=== PATIENT | female | born 1995 | race Caucasian/White ===

== ENCOUNTER 2016-10-27 10:11 | Emergency (ER) | payer SELFPAY ==
[~2016-10-27 10:11] MED LIST: ARPZ10T PO; BENZ-13 PO; BUSP5TAB59 PO; CEPH-507 PO; CEPH500C PO; CODE-54 PO; Docusate Sodium PO; ESCI20TA2 PO; ESCI5TAB PO; ESCT10T PO; FLUC100T6 PO; HYDR-1231 PO; HYDR-3584 PO; Ibuprofen PO; LISD10CA PO; LISD50CA2 PO; LISD70CA3 PO; MULT1CAP27 PO; NITR100C3 PO; PHEN-639 PO; PNV1TABL9 PO; PRED20TA PO; QTP100T PO; RANI150T15 PO; TRAM50TA2 PO; TRM50T PO; toradol PO
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
== END 2016-10-27 10:43 | disposition left against medical advice (07) ==
LOC: EDUNIT# 10:11 → ER 10:12
DX: R04.2 Hemoptysis (principal); Z53.21 Procedure and treatment not carried out due to patient leaving prior to being seen by health care provider

== ENCOUNTER 2016-11-03 10:52 | Emergency (ER) | payer SELFPAY ==
[~2016-11-03] VITALS: Ht 160 cm; Wt 61.2 kg
--- OUTSIDE RECORDS SUMMARY | 2016-11-03 10:58 | XMS REPORT | Continuity of Care Document ---
Author Author [facility] Organization [facility] Address Unknown Phone Unavailable Care Team Providers Care Vice President Quality Name Role Phone [facility] PCP Insurance Providers Payer Name Policy Number Subscriber Name Relationship [facility] Amerigrp [id number] Han Weir 18 Self / Same As Patient Advance Directives Directive Response Recorded Date/Time Advance Directives No 06/22/16 4:18pm Health Care Power of Trailer Sections Assembler No 06/22/16 4:18pm Organ Donor Yes 06/22/16 [...] Release Form Prescriptions See Medication Section Referrals [facility] - Primary Care Physician Additional Instructions/Education All discharge instructions reviewed with patient and/or family. Voiced understanding. Medications as instructed. Tylenol extra strength [id number] as directed for pain. Ibuprofen 800 mg [...] - 99.5) 06/22/2016 6:03pm Temperature (Calculated Celsius) 36.71826 degrees C (36.4 - 37.5) 06/22/2016 6:03pm [...] 2 inches 06/22/2016 4:18pm Height (Calculated Centimeters) 157.691405 cm 06/22/2016 4:18pm Weight (Pounds) 110 pounds 06/22/2016 4:18pm Weight (Calculated Kilograms) 49.658883 kilograms 06/22/2016 4:18pm Capillary Refill Capillary Refill [...] 5-9 06/22/2016 4:pm 06/22/2016 4:57pm Urine Specific [place] 1.025 * 1.016-1.022 06/22/2016 4:pm 2015 4:57pm [...] Date Attending Provider Departed Emergency Room [facility] 06/22/16 4:18pm 06/22 6:18pm SHAGUFTA WILKS Recent Diagnosis
[2016-11-03] MEDS ORDERED: LORazepam INJ 2 MG/ML (ATIVAN) VIAL IVP ONE (11:30)
--- NOTE | 2016-11-03 11:37 | ED Psychosocial ---
General Chief Complaint: General Problems/Pain Stated Complaint: CHEST PAIN/SOA Nursing Triage Note: c/o chest pain/soa. States she has been upset about her kids being taking away. Hx of anxiety Source: patient Exam Limitations: no limitations History of Present Illness Time seen by provider: 11:26 Initial Comments 20-year-old female patient presents to the emergency department with complaints of chest pain and shortness of air for 1 month. Patient states 2 weeks ago pain became more consistent. Describes pain as a heaviness and achiness. Chest pain is moderate to severe. Patient's children were taken away 1 month ago. Patient does report difficulty with sleep and anxiety. Patient reports " My suicidal thoughts have gotten worse." Patient denies having a plan and states "I don't want to go to hell." Timing/Duration: getting worse ((the last 2 wks)), other (1 month. ) Associated Symptoms: anxiety, impaired concentration, insomnia, suicidal ideation Allergies and Home Medications Allergies Coded Allergies: No Known Drug Allergies (Unverified , 07/21/16) Home Medications Benzonatate 100 Mg Capsule #14 1-2 CAP PO Q8H PRN PRN COUGH Prescribed by: SHAGUFTA WILKS on 07/21/162126 Cephalexin 500 Mg Capsule #21 500 MG PO TID Prescribed by: SHAGUFTA WILKS on 07/21/162126 Fluconazole 100 Mg Tablet #10 100 MG PO DAILY Prescribed by: SHAGUFTA WILKS on 07/21/162126 Hydroxyzine Pamoate 25 Mg Capsule #1 25 MG PO Q6H PRN PRN ANXIETY Prescribed by: SHAGUFTA WILKS on 11/03/16 1304 Lisdexamfetamine Dimesylate 10 Mg Capsule Unknown Dose PO (Reported) Constitutional: No chills, No diaphoresis, No dizziness, No fever, No malaise EENTM: no symptoms reported Respiratory: coughNo orthopnea, No phlegm, short of breath wheezing (( patient hasn't had her inhaler for "quite a while".) Cardiovascular: see HPI chest painNo edema, No palpitations, No syncope Gastrointestinal: No abdominal pain, No constipation, No diarrhea, No nausea, No vomiting Genitourinary: no symptoms reported : No Musculoskeletal: no symptoms reported Skin: no symptoms reported Psychiatric/Neurological: No Symptoms Reported All Other Systems Reviewed Negative Unless Noted: Yes (Negative excepted noted.) Past Apfdtqm-Hifwin-Mqsmha Hx Patient Social History Drug of Choice: Marijuana Type Used: Cigarettes Recent Foreign Travel: No Contact w/Someone Who Travel: No Recent Infectious Disease Expo: No Recent Hopitalizations: No Immunizations Up To Date Tetanus Booster (TDap): Less than 5yrs Date of Influenza Vaccine: Jul 24, 2014 Seasonal Allergies Seasonal Allergies: No Surgeries HX Surgeries: No Respiratory Hx Respiratory Disorders: No Cardiovascular Hx Cardiac Disorders: No Neurological Hx Neurological Disorders: No Reproductive System Hx Reproductive Disorders: No Female Reproductive Disorders: Denies Genitourinary Hx Genitourinary Disorders: No Gastrointestinal Hx Gastrointestinal Disorders: No Musculoskeletal Hx Musculoskeletal Disorders: No Endocrine Hx Endocrine Disorders: Yes (hypoglycemia) HEENT HX ENT Disorders: No Cancer Hx Cancer: No Psychosocial Hx Psychiatric Problems: Yes Behavioral Health Disorders: ADD/ADHD, Anxiety, Depression Integumentary HX Skin/Integumentary Disorder: No Blood Transfusions Hx Blood Disorders: No Adverse Reaction to a Blood Tr: No Reviewed Nursing Assessment Reviewed/Agree w Nursing PMH: Yes Family Medical History Significant Family History: No Pertinent Family Hx Family Medial History: Patient reports no known family medical history. Physical Exam Vital Signs Vital Sign - Last 12Hours 11/03/16 11/03/16 11:17 13:32 Temp 97.5 Pulse 109 Resp 18 B/P 127/90 Pulse Ox 98 O2 Delivery Room Air Capillary Refill : Less Than 3 Seconds General Appearance: WD/WN mild distress HEENT: PERRL/EOMI pharynx normal Neck: supple normal inspection Respiratory: no respiratory distress no accessory muscle use wheezing (rt upper faint expiratory wheeze.) expiration other (anterior chest mildly TTP ( patient reports heaviness gets worse with palpation of the anterior chest.)) Cardiovascular: normal peripheral pulses no edema no murmur tachycardia Gastrointestinal: normal bowel sounds non tender soft no organomegalyNo distended Extremities: non-tender no pedal edema normal capillary refill Neurologic/Psychiatric: surtass analyst II-XII nml as tested no motor/sensory deficits alert oriented x 3 other (depressed, tearful, anxious.) Appearance/Memory: appropriate appearance appropriate insight neat no memory impairment Behavior/Eye Contact: cooperative avoids eye contact increased rate of speech Thoughts/Hallucinations: normal thought pattern no apparent hallucination Skin: normal color warm/dry tattoos/piercings Progress/Results/Core Measures Results/Orders Lab Results Laboratory Tests Test 11/03/16 11:57 11/03/16 12:34 Range/Units Acetaminophen Level < 10 L 10-30 UG/ML Alanine Aminotransferase (ALT/SGPT) 23 0-55 U/L Albumin 4.3 3.2-4.5 G/DL Alkaline Phosphatase 50 40-136 U/L Anion Gap 8 5-14 MMOL/L Aspartate Amino Transf (AST/SGOT) 21 5-34 U/L BUN/Creatinine Ratio 11 Basophils # (Auto) 0.0 0.0-0.1 10^3/uL Basophils (%) (Auto) 0 0-10 % Blood Urea Nitrogen 10 7-18 MG/DL Calcium Level 9.4 8.5-10.1 MG/DL Carbon Dioxide Level 24 21-32 MMOL/L Chloride Level 109 H 98-107 MMOL/L Creatinine 0.87 0.60-1.30 MG/DL Eosinophils # (Auto) 0.1 0.0-0.3 10^3/uL Eosinophils (%) (Auto) 1 0-10 % Estimat Glomerular Filtration Rate > 60 Glucose Level 92 70-105 MG/DL Hematocrit 44 35-52 % Hemoglobin 15.3 11.5-16.0 G/DL Lymphocytes # (Auto) 2.0 1.0-4.0 X 10^3 Lymphocytes (%) (Auto) 21 12-44 % Magnesium Level 2.4 1.8-2.4 MG/DL Mean Corpuscular Hemoglobin 29 25-34 PG Mean Corpuscular Hemoglobin Concent 35 32-36 G/DL Mean Corpuscular Volume 84 80-99 FL Mean Platelet Volume 10.0 7.4-10.4 FL Monocytes # (Auto) 0.7 0.0-1.0 X 10^3 Monocytes (%) (Auto) 8 0-12 % Neutrophils # (Auto) 6.7 1.8-7.8 X 10^3 Neutrophils (%) (Auto) 70 42-75 % Platelet Count 443 H 130-400 10^3/uL Potassium Level 3.9 3.6-5.0 MMOL/L Red Blood Count 5.22 4.35-5.85 10^6/uL Red Cell Distribution Width 13.1 10.0-14.5 % Salicylates Level < 5.0 L 5.0-20.0 MG/DL Serum Alcohol < 10 <10 MG/DL Sodium Level 141 135-145 MMOL/L TSH [place] Testing 1.05 0.35-4.94 UIU/ML Total Bilirubin 0.3 0.1-1.0 MG/DL Total Protein 7.2 6.4-8.2 G/DL Troponin I < 0.30 <0.30 NG/ML White Blood Count 9.6 4.3-11.0 10^3/uL Ur Tricyclic Antidepressants Screen NEGATIVE NEGATIVE Urine Amorphous Sediment MOD SAMEER URATES H /LPF Urine Amphetamines Screen POSITIVE H NEGATIVE Urine Bacteria TRACE /HPF Urine Barbiturates Screen NEGATIVE NEGATIVE Urine Benzodiazepines Screen POSITIVE H NEGATIVE Urine Bilirubin NEGATIVE NEGATIVE Urine Cannabinoids Screen NEGATIVE NEGATIVE Urine Casts NONE /LPF Urine Clarity SLIGHTLY CLOUDY Urine Cocaine Screen NEGATIVE NEGATIVE Urine Color YELLOW Urine Crystals NONE /LPF Urine Culture Indicated NO Urine Glucose (UA) NEGATIVE NEGATIVE Urine Ketones NEGATIVE NEGATIVE Urine Leukocyte Esterase NEGATIVE NEGATIVE Urine Methadone Screen NEGATIVE NEGATIVE Urine Methamphetamines Screen NEGATIVE NEGATIVE Urine Mucus NEGATIVE /LPF Urine Nitrite NEGATIVE NEGATIVE Urine Opiates Screen NEGATIVE NEGATIVE Urine Oxycodone Screen NEGATIVE NEGATIVE Urine Phencyclidine Screen NEGATIVE NEGATIVE Urine Test NEGATIVE NEGATIVE Urine Propoxyphene Screen NEGATIVE NEGATIVE Urine Protein NEGATIVE NEGATIVE Urine RBC NONE /HPF Urine RBC (Auto) NEGATIVE NEGATIVE Urine Specific [place] 1.015 L 1.016-1.022 Urine Squamous Epithelial Cells 5-10 /HPF Urine Urobilinogen NORMAL NORMAL MG/DL Urine WBC NONE /HPF Urine pH 7 5-9 My Orders Orders-SHAGUFTA WILKS PA Ua Culture If Indicated (11/03/16 11:28) Cbc With Automated Diff (11/03/16 11:28) Comprehensive Metabolic Panel (11/03/16 11:28) Alcohol (11/03/16 11:28) Drug Screen Stat (Urine) (11/03/16 11:28) Acetaminophen (11/03/16 11:28) Salicylate (11/03/16 11:28) Ekg Tracing (11/03/16 11:28) Hcg,Qualitative Urine (11/03/16 11:28) Saline Lock/Iv-Start (11/03/16 11:28) Thyroid Analyzer (11/03/16 11:28) Monitor-Rhythm Ecg Trace Only (11/03/16 11:28) Magnesium (11/03/16 11:28) Troponin I (11/03/16 11:28) Lorazepam Injection (Ativan Injection) (11/03/16 11:30) Chest 1 View, Ap/Pa Only (11/03/16 11:42) Lorazepam Tablet (Ativan Tablet) (11/03/16 13:00) Rx-Albuterol Inhaler (Rx-Proair) (11/03/16 13:13) Medications Given in ED Current Medications Medications Dose Ordered Sig/Sachin Route Start Time Stop Time Status Last Admin Dose Admin Lorazepam 0.5 mg ONCE ONCE IVP 11/03/16 11:30 11/03/16 11:31 DC 11/03/16 11:59 0.5 MG Lorazepam 0.5 mg ONCE ONCE PO 11/03/16 13:00 11/03/16 13:01 DC 11/03/16 13:25 0.5 MG Vital Signs/I&O Vital Sign - Last 12Hours 11/03/16 11/03/16 11:17 13:32 Temp 97.5 97.5 Pulse 109 90 Resp 18 16 B/P 127/90 Pulse Ox 98 O2 Delivery Room Air Blood Pressure Mean: 102 ECG Initial ECG Impression Date: Nov 03, 2016 Initial ECG Impression Time: 11:18 Initial ECG Rate: 102 Initial ECG Rhythm: S.Tach Initial ECG Comparisson: Unchanged Comment sinus tachycardia. no STEMI. ECG reviewed by Dr. Cian. Diagnostic Imaging Diagonstic Imaging: Xray Plain Films/CT/US/NM/MRI: chest Comments Findings: Upright portable view of the chest is obtained. The heart size is normal. The pulmonary vessels appear unremarkable. The lungs are clear. There is no pleural effusion or pneumothorax. Impression: Negative chest. Dictated by : Dictated on workstation # [id number] Reviewed: Reviewed by Me (radiology report reiviewed by me.) Departure Communication Progress Notes all laboratory and diagnostic findings discussed with the patient. Patient denies current drug abuse. Patient does have a history of methamphetamine abuse. Patient states she is taking her Vyvanse. Continues to deny having a plan to commit suicide. Denies homicidal ideation. Patient instructed to f/u with [facility] Friday for recheck. Patient to call first thing Friday morning for appointment time. Patient case discussed with Dr. Cain, he agrees with the plan of care. Impression Impression: Primary Impression: Anxiety attack Additional Impressions: Stress at home Asthma Qualified Code: J45.20 - Mild intermittent asthma, uncomplicated Disposition: 01 HOME, SELF-CARE Condition: Improved Departure-Patient Inst. Decision time for Depature: 13:02 Referrals: [facility] [place] ([place]/Family) Primary Care Physician Patient Instructions: Anxiety, Adult (DC), Stress Add. Discharge Instructions: All discharge instructions reviewed with patient and/or family. Voiced understanding. medications as instructed. Drink plenty of fluids. Follow-up with [facility] on Friday for recheck, medication refills, and discussion of lab results. Call first thing Friday morning for appointment time. Do not use drugs. Contact [phone], the police department, or return to the emergency department immediately if worsening symptoms, thoughts of harming yourself, or thoughts of harming others. Return to the emergency department immediately for worsened symptoms or any other concerns. Scripts Hydroxyzine Pamoate (Vistaril)25 Mg [id number] Mg PO Q6H PRN ANXIETY #1 CAP Ref 0 Prov:SHAGUFTA WILKS 11/03/16 Copy Copies To 1: CHICHI VALADEZ GRETCHEN L PA Nov 03, 2016 11:36
[2016-11-03 12:08] LABS: BASOPHILS % (AUTO) 0 % (0-10); EOSINOPHILS # (AUTO) 0.1 10^3/uL (0.0-0.3); EOSINOPHILS % (AUTO) 1 % (0-10); LYMPHOCYTES % (AUTO) 21 % (12-44); MEAN CORPUSCULAR HEMOGLOBIN 29 PG (25-34); MEAN CORPUSCULAR HGB CONC 35 G/DL (32-36); MEAN CORPUSCULAR VOLUME 84 FL (80-99); MONOCYTES # (AUTO) 0.7 X 10^3 (0.0-1.0); MONOCYTES % (AUTO) 8 % (0-12); NEUTROPHILS # (AUTO) 6.7 X 10^3 (1.8-7.8); NEUTROPHILS % (AUTO) 70 % (42-75); PLATELET COUNT 443 10^3/uL (130-400); RED BLOOD COUNT 5.22 10^6/uL (4.35-5.85); RED CELL DISTRIBUTION WIDTH 13.1 % (10.0-14.5); WHITE BLOOD COUNT 9.6 10^3/uL (4.3-11.0)
[2016-11-03 12:29] LABS: ALANINE AMINOTRANSFERASE 23 U/L (0-55); ALBUMIN 4.3 G/DL (3.2-4.5); ANION GAP 8 MMOL/L (5-14); ASPARTATE AMINO TRANSFERASE 21 U/L (5-34); BILIRUBIN,TOTAL 0.3 MG/DL (0.1-1.0); BLOOD UREA NITROGEN 10 MG/DL (7-18); BUN/CREATININE RATIO 11; CALCIUM 9.4 MG/DL (8.5-10.1); CARBON DIOXIDE 24 MMOL/L (21-32); CHLORIDE 109 MMOL/L (98-107); CREATININE SERUM 0.87 MG/DL (0.60-1.30); GFR ESTIMATED > 60; GLUCOSE 92 MG/DL (70-105); MAGNESIUM 2.4 MG/DL (1.8-2.4); POTASSIUM 3.9 MMOL/L (3.6-5.0); SALICYLATE < 5.0 MG/DL (5.0-20.0); SODIUM 141 MMOL/L (135-145); TOTAL PROTEIN 7.2 G/DL (6.4-8.2)
--- NOTE | 2016-11-03 12:34 | Diagnostic Imaging Report ---
Indication: Chest pain. Comparison: 12/05/2015 Findings: Upright portable view of the chest is obtained. The heart size is normal. The pulmonary vessels appear unremarkable. The lungs are clear. There is no pleural effusion or pneumothorax. Impression: Negative chest. Dictated by: Dictated on workstation # [id number]
[2016-11-03 12:35] LABS: ACETAMINOPHEN < 10 UG/ML (10-30); ALCOHOL < 10 MG/DL (<10); TROPONIN I < 0.30 NG/ML (<0.30)
[2016-11-03 12:41] LABS: BILIRUBIN,URINE NEGATIVE (NEGATIVE); KETONES,URINE NEGATIVE (NEGATIVE); LEUKOCYTE ESTERASE ,URINE NEGATIVE (NEGATIVE); NITRITE,URINE NEGATIVE (NEGATIVE); PH,URINE 7 (5-9); PROTEIN,URINE NEGATIVE (NEGATIVE); UROBILINOGEN,URINE NORMAL (NORMAL)
[2016-11-03] MEDS ORDERED: LORazepam 0.5 MG (ATIVAN) TABLET PO ONE (13:00)
[2016-11-03] MEDS ORDERED: HYDR25CA PO (13:04)
[2016-11-03] MEDS ORDERED: RX-ALBUTEROL INHALER (PROAIR) 8 GM IH STA (13:13)
[2016-11-03 13:32] VITALS: BP 122/82
== END 2016-11-03 13:32 | disposition home or self-care (01) ==
LOC: EDUNIT# 10:52 → ER 10:54
DX: F41.9 Anxiety disorder, unspecified (principal); J45.909 Unspecified asthma, uncomplicated; Z63.32 Other absence of family member
CPT/HCPCS: 36415; 71010; 80053; 80306; 80320; 80329; 81000; 83735; 84443; 84484; 84703; 85025; 93005; 93041; 96374

== ENCOUNTER 2017-01-19 17:20 | Emergency (ER) | payer SELFPAY ==
[~2017-01-19 17:20] MED LIST changes: +HYDR25CA PO
[2017-01-20] MEDS ORDERED: AZIT500T5 PO (13:58)
[2017-01-20] MEDS ORDERED: METR500T21 PO (13:58)
[2017-01-20] MEDS ORDERED: NAPR550T PO (13:58)
--- OUTSIDE RECORDS SUMMARY | 2017-02-23 06:10 | XMS REPORT ---
Author Author KELLY CABAN [facility] Address [address] [place] [address] Care Team Providers Care Food Analyst Name Role Phone KELLY CABAN Unavailable PROBLEMS Type Condition ICD9-CM Code VYO77-MS Code Onset Dates Condition Status SNOMED Code Problem Evaluation for contraceptive injection Z30.013 Active 89803235 Problem Anxiety associated with depression F41.8 Active 224417169 Problem Depressive disorder F32.9 Active 22758484 Problem Generalized anxiety disorder F41.1 Active 357075696 ALLERGIES Unknown Allergies SOCIAL HISTORY No smoking Hx information available PLAN OF CARE VITAL SIGNS MEDICATIONS Medication Instructions Dosage Frequency Start Date End Date Duration Status Vyvanse 50 mg Orally Once a day 1 capsule in the morning 24h February, Active RESULTS No Results PROCEDURES No Known procedures IMMUNIZATIONS No Known Immunizations
--- OUTSIDE RECORDS SUMMARY | 2017-02-23 06:11 | XMS REPORT ---
Author Author KELLY CABAN Organization [employer] Address Unknown Phone Unavailable Care Team Providers Care Hollow Tile Partition Erector Name Role Phone KELLY CABAN CP Unavailable Allergies, Adverse Reactions, Alerts Substance Reaction Event Type N.K.D.A. Info Not Available Non Drug Allergy Problems Problem Type Condition Code Onset Dates Condition Status Problem Supervision of with history of pre-term labor V23.41 Active Problem examination or test, positive result V72.42 Active Problem Irregular menstrual cycle 626.4 Active Problem General counseling for initiation of other contraceptive measures V25.02 Active Problem Screening examination for venereal disease V74.5 Active Problem General counseling for prescription of oral contraceptives V25.01 Active Problem Insomnia, unspecified 780.52 Active Problem Dyspareunia 625.0 Active Problem Contact or exposure to other viral diseases V01.79 Active Problem Dysuria 788.1 Active Assessment Attention deficit hyperactivity disorder (ADHD), predominantly inattentive type F90.0 Active Problem Generalized anxiety disorder 300.02 Active Problem Depressive disorder, not elsewhere classified 311 Active Problem Acute upper respiratory infections of unspecified site 465.9 Active Problem Urinary tract infection, site not specified 599.0 Active Problem Need for prophylactic vaccination and inoculation, Influenza V04.81 Active Problem Pain in joint, pelvic region and thigh 719.45 Active Problem Tobacco use disorder complicating , childbirth, or the puerperium, unspecified as to episode of care or not applicable 649.00 Active Medications Medication Code System Code Instructions Start Date End Date Status Dosage Vyvanse [facility] [address]-81 70 MG Orally Once a day Aug 23, 2015 1 capsule in the morning Procedures Procedure Coding System Code Date Office Visit, Est Pt., Level 3 CPT-4 35399 Aug 23, 2015 Vital Signs Date/Time: Aug 23, 2015 Temperature 98.8 F Weight 137.7 lbs Height 63 in BMI 24.39 Index Blood Pressure Diastolic 70 mmHg Blood Pressure Systolic 110 mmHg Cardiac Monitoring Heart Rate 99 bpm Results No Known Results Summary Purpose [employer] Submission
--- OUTSIDE RECORDS SUMMARY | 2017-02-23 06:11 | XMS REPORT ---
Author Author KELLY CABAN [facility] [employer] Address Unknown Phone Unavailable Care Team Providers Care Interdisciplinary Professor Name Role Phone KELLY CABAN CP Unavailable Allergies, Adverse Reactions, Alerts Substance Reaction Event Type N.K.D.A. Info Not Available Non Drug Allergy Problems Problem Type Condition Code Onset Dates Condition Status Assessment Arthritis M19.90 Active Assessment Anxiety F41.9 Active Assessment Attention deficit hyperactivity disorder (ADHD), unspecified ADHD type F90.9 Active Problem Attention deficit hyperactivity disorder (ADHD), unspecified ADHD type F90.9 Active Problem Arthritis M19.90 Active Problem Anxiety F41.9 Active Problem Depressive disorder F32.9 Active Problem Generalized anxiety disorder F41.1 Active Problem Evaluation for contraceptive injection Z30.013 Active Problem Anxiety associated with depression F41.8 Active Medications Medication Code System Code Instructions Start Date End Date Status Dosage Ativan [facility] [place] [address]-47 0.5 MG Orally 2 times a day Jul 15, 2016 1 tablet as needed Naproxen [facility] [place] [address]-37 500 MG Orally every 12 hrs Jul 15, 2016 1 tablet as needed Vyvanse [facility] [place] [address]-82 60 mg Orally Once a day Jul 15, 2016 1 capsule in the morning Amoxicillin [facility] [place] [address]-74 400 MG/5ML Orally 3 times a day Jul 15, 2016 Jul 25, 2016 6 ml Procedures Procedure Coding System Code Date Office Visit, Est Pt., Level 3 CPT-4 13988 Jul 15, 2016 Vital Signs Date/Time: Jul 15, 2016 Cardiac Monitoring Heart Rate 92 bpm Weight 128.6 lbs Height 63 in BMI 22.78 Index Blood Pressure Diastolic 80 mmHg Blood Pressure Systolic 120 mmHg Results No Known Results Summary Purpose [employer] Submission
--- OUTSIDE RECORDS SUMMARY | 2017-02-23 06:14 | XMS REPORT | Continuity of Care Document ---
Author Author [facility] Address Unknown Phone Unavailable Allergies Active Description Code Type Severity Reaction Onset Reported/Identified Relationship to Patient Clinical Status Yes No Known Drug Allergies [id number] Drug Allergy Unknown N/ A 07/21/2016 Medications Problems Date Dx Coded Attending Type Code Diagnosis Diagnosed By 05/19/2008 KELLY CABAN APRN 789.00 ABDOMINAL PAIN UNSPECIFIED SITE 05/19/2008 KELLY CABAN APRN V58.69 MEDICATION HIGH RISK 05/19/2008 789.00 ABDOMINAL PAIN UNSPECIFIED SITE 05/19/2008 V58.69 MEDICATION HIGH RISK 05/19/2008 789.00 ABDOMINAL PAIN UNSPECIFIED SITE 05/19/2008 V58.69 MEDICATION HIGH RISK 05/19/2008 789.00 ABDOMINAL PAIN UNSPECIFIED SITE 05/19/2008 V58.69 MEDICATION HIGH RISK 05/19/2008 789.00 ABDOMINAL PAIN UNSPECIFIED SITE 05/19/2008 V58.69 MEDICATION HIGH RISK 05/19/2008 789.00 ABDOMINAL PAIN UNSPECIFIED SITE 05/19/2008 V58.69 MEDICATION HIGH RISK 05/19/2008 789.00 ABDOMINAL PAIN UNSPECIFIED SITE 05/19/2008 V58.69 MEDICATION HIGH RISK 05/19/2008 789.00 ABDOMINAL PAIN UNSPECIFIED SITE 05/19/2008 V58.69 MEDICATION HIGH RISK 05/19/2008 KELLY CABAN APRN 789.00 ABDOMINAL PAIN UNSPECIFIED SITE 05/19/2008 KELLY CABAN APRN V58.69 MEDICATION HIGH RISK 05/19/2008 SHANNON KLINE APRN 789.00 ABDOMINAL PAIN UNSPECIFIED SITE 05/19/2008 SHANNON KLINE APRN V58.69 MEDICATION HIGH RISK 05/19/2008 CHICHI VALADEZ DO 789.00 ABDOMINAL PAIN UNSPECIFIED SITE 05/19/2008 CHICHI VALADEZ DO V58.69 MEDICATION HIGH RISK 05/19/2008 KELLY CABAN APRN 789.00 ABDOMINAL PAIN UNSPECIFIED SITE 05/19/2008 KELLY CABAN APRN V58.69 MEDICATION HIGH RISK 05/19/2008 KELLY CABAN APRN 789.00 ABDOMINAL PAIN UNSPECIFIED SITE 05/19/2008 KELLY CABAN APRN V58.69 MEDICATION HIGH RISK 05/19/2008 KELLY CABAN APRN 789.00 ABDOMINAL PAIN UNSPECIFIED SITE 05/19/2008 KELLY CABAN APRN V58.69 MEDICATION HIGH RISK 05/19/2008 VALADEZ DO, CHICHI K 789.00 ABDOMINAL PAIN UNSPECIFIED SITE 05/19/2008 VALADEZ DO, CHICHI K V58.69 MEDICATION HIGH RISK 05/19/2008 VALADEZ DO, CHICHI K 789.00 ABDOMINAL PAIN UNSPECIFIED SITE 05/19/2008 VALADEZ DO, CHIHCI K V58.69 MEDICATION HIGH RISK 05/19/2008 SHANNON KLINE APRN A 789.00 ABDOMINAL PAIN UNSPECIFIED SITE 05/19/2008 SHANNON KLINE APRN A V58.69 MEDICATION HIGH RISK 05/19/2008 BEENA YANG, CHARLES Esteevs 789.00 ABDOMINAL PAIN UNSPECIFIED SITE 05/19/2008 BEENA YANG, CHARLES Esteves V58.69 MEDICATION HIGH RISK 05/19/2008 BEENA YANG, CHARLES Esteves 789.00 ABDOMINAL PAIN UNSPECIFIED SITE 05/19/2008 BEENA YANG, CHARLES Esteves V58.69 MEDICATION HIGH RISK 05/19/2008 SHANNON KLINE APRN A 789.00 ABDOMINAL PAIN UNSPECIFIED SITE 05/19/2008 SHANNON KLINE APRN A V58.69 MEDICATION HIGH RISK 06/02/2008 KELLY CABAN APRN 315.9 LEARNING/DELAY IN DEVELOPMENT 06/02/2008 KELLY CABAN APRN 780.52 INSOMNIA UNSPECIFIED 06/02/2008 315.9 LEARNING/DELAY IN DEVELOPMENT 06/02/2008 780.52 INSOMNIA UNSPECIFIED 06/02/2008 315.9 LEARNING/DELAY IN DEVELOPMENT 06/02/2008 780.52 INSOMNIA UNSPECIFIED 06/02/2008 315.9 LEARNING/DELAY IN DEVELOPMENT 06/02/2008 780.52 INSOMNIA UNSPECIFIED 06/02/2008 315.9 LEARNING/DELAY IN DEVELOPMENT 06/02/2008 780.52 INSOMNIA UNSPECIFIED 06/02/2008 315.9 LEARNING/DELAY IN DEVELOPMENT 06/02/2008 780.52 INSOMNIA UNSPECIFIED 06/02/2008 315.9 LEARNING/DELAY IN DEVELOPMENT 06/02/2008 780.52 INSOMNIA UNSPECIFIED 06/02/2008 315.9 LEARNING/DELAY IN DEVELOPMENT 06/02/2008 780.52 INSOMNIA UNSPECIFIED 06/02/2008 KELLY CABAN APRN T 315.9 LEARNING/DELAY IN DEVELOPMENT 06/02/2008 KELLY CABAN APRN T 780.52 INSOMNIA UNSPECIFIED 06/02/2008 SHANNON KLINE APRN A 315.9 LEARNING/DELAY IN DEVELOPMENT 06/02/2008 SHANNON KLINE APRN A 780.52 INSOMNIA UNSPECIFIED 06/02/2008 VALADEZ DO, CHICHI K 315.9 LEARNING/DELAY IN DEVELOPMENT 06/02/2008 VALADEZ DO, CHICHI K 780.52 INSOMNIA UNSPECIFIED 06/02/2008 KELLY CABAN APRN T 315.9 LEARNING/DELAY IN DEVELOPMENT 06/02/2008 KELLY CABAN APRN T 780.52 INSOMNIA UNSPECIFIED 06/02/2008 KELLY CABAN APRN T 315.9 LEARNING/DELAY IN DEVELOPMENT 06/02/2008 KELLY CABAN APRN 780.52 INSOMNIA UNSPECIFIED 06/02/2008 KELLY CABAN APRN T 315.9 LEARNING/DELAY IN DEVELOPMENT 06/02/2008 KELLY CABAN APRN T 780.52 INSOMNIA UNSPECIFIED 06/02/2008 VALADEZ DO, CHICHI K 315.9 LEARNING/DELAY IN DEVELOPMENT 06/02/2008 VALADEZ DO, CHICHI K 780.52 INSOMNIA UNSPECIFIED 06/02/2008 VALADEZ DO, CHICHI K 315.9 LEARNING/DELAY IN DEVELOPMENT 06/02/2008 VALADEZ DO, CHICHI K 780.52 INSOMNIA UNSPECIFIED 06/02/2008 SHANNON KLINE APRN A 315.9 LEARNING/DELAY IN DEVELOPMENT 06/02/2008 SHANNON KLINE APRN A 780.52 INSOMNIA UNSPECIFIED 06/02/2008 BEENA YANG, CHARLES Esteves 315.9 LEARNING/DELAY IN DEVELOPMENT 06/02/2008 BEENA PHD, CHARLES Esteves 780.52 INSOMNIA UNSPECIFIED 06/02/2008 BEENA YANG, CHARLES Esteves 315.9 LEARNING/DELAY IN DEVELOPMENT 06/02/2008 BEENA YANG, CHARLES Esteves 780.52 INSOMNIA UNSPECIFIED 06/02/2008 SHANNON KLINE APRN A 315.9 LEARNING/DELAY IN DEVELOPMENT 06/02/2008 SHANNON KLINE APRN A 780.52 INSOMNIA UNSPECIFIED 07/14/2008 KELLY CABAN APRN 079.99 VIRAL SYNDROME 07/14/2008 079.99 VIRAL SYNDROME 07/14/2008 079.99 VIRAL SYNDROME 07/14/2008 079.99 VIRAL SYNDROME 07/14/2008 079.99 VIRAL SYNDROME 07/14/2008 079.99 VIRAL SYNDROME 07/14/2008 079.99 VIRAL SYNDROME 07/14/2008 079.99 VIRAL SYNDROME 07/14/2008 KELLY CABAN APRN 079.99 VIRAL SYNDROME 07/14/2008 SHANNON KLINE APRN A 079.99 VIRAL SYNDROME 07/14/2008 VALADEZ DO CHICHI K 079.99 VIRAL SYNDROME 07/14/2008 KELLY CABAN APRN 079.99 VIRAL SYNDROME 07/14/2008 KELLY CABAN APRN 079.99 VIRAL SYNDROME 07/14/2008 KELLY CABAN APRN 079.99 VIRAL SYNDROME 07/14/2008 VALADEZ DO CHICHI K 079.99 VIRAL SYNDROME 07/14/2008 VALADEZ DO CHICHI K 079.99 VIRAL SYNDROME 07/14/2008 SHANNON KLINE APRN A 079.99 VIRAL SYNDROME 07/14/2008 BEENA PHD, CHARLES Esteves 079.99 VIRAL SYNDROME 07/14/2008 BEENA PHD, CHARLES Esteves 079.99 VIRAL SYNDROME 07/14/2008 SHANNON KLINE APRN A 079.99 VIRAL SYNDROME 08/02/2008 KELLY CABAN APRN 302.72 ANHEDONIA 08/02/2008 302.72 ANHEDONIA 08/02/2008 302.72 ANHEDONIA 08/02/2008 302.72 ANHEDONIA 08/02/2008 302.72 ANHEDONIA 08/02/2008 302.72 ANHEDONIA 08/02/2008 302.72 ANHEDONIA 08/02/2008 302.72 ANHEDONIA 08/02/2008 KELLY CABAN APRN 302.72 ANHEDONIA 08/02/2008 SHANNON KLINE APRN A 302.72 ANHEDONIA 08/02/2008 VALADEZ TIFFANIE YUNGA K 302.72 ANHEDONIA 08/02/2008 KELLY CABAN APRN 302.72 ANHEDONIA 08/02/2008 KELLY CABAN APRN 302.72 ANHEDONIA 08/02/2008 KELLY CABAN APRN 302.72 ANHEDONIA 08/02/2008 VALADEZ DO CHICHI K 302.72 ANHEDONIA 08/02/2008 VALADEZ DO, CHICHI K 302.72 ANHEDONIA 08/02/2008 SHANNON KLINE APRN A 302.72 ANHEDONIA 08/02/2008 CHARLES HARGROVE PHD 302.72 ANHEDONIA 08/02/2008 CHARLES HARGROVE PHD 302.72 ANHEDONIA 08/02/2008 SHANNON KLINE APRN A 302.72 ANHEDONIA 08/05/2008 KELLY CABAN APRN 296.32 MAJOR DEPRESSIVE AFFECTIVE DISORDER RECURRENT EPISODE MODERATE DEGREE 08/05/2008 296.32 MAJOR DEPRESSIVE AFFECTIVE DISORDER RECURRENT EPISODE MODERATE DEGREE 08/05/2008 296.32 MAJOR DEPRESSIVE AFFECTIVE DISORDER RECURRENT EPISODE MODERATE DEGREE 08/05/2008 296.32 MAJOR DEPRESSIVE AFFECTIVE DISORDER RECURRENT EPISODE MODERATE DEGREE 08/05/2008 296.32 MAJOR DEPRESSIVE AFFECTIVE DISORDER RECURRENT EPISODE MODERATE DEGREE 08/05/2008 296.32 MAJOR DEPRESSIVE AFFECTIVE DISORDER RECURRENT EPISODE MODERATE DEGREE 08/05/2008 296.32 MAJOR DEPRESSIVE AFFECTIVE DISORDER RECURRENT EPISODE MODERATE DEGREE 08/05/2008 296.32 MAJOR DEPRESSIVE AFFECTIVE DISORDER RECURRENT EPISODE MODERATE DEGREE 08/05/2008 KELLY CABAN APRN 296.32 MAJOR DEPRESSIVE AFFECTIVE DISORDER RECURRENT EPISODE MODERATE DEGREE 08/05/2008 SHANNON KLINE APRN A 296.32 MAJOR DEPRESSIVE AFFECTIVE DISORDER RECURRENT EPISODE MODERATE DEGREE 08/05/2008 ALLYSON DO CHICHI K 296.32 MAJOR DEPRESSIVE AFFECTIVE DISORDER RECURRENT EPISODE MODERATE DEGREE 08/05/2008 KELLY CABAN APRN 296.32 MAJOR DEPRESSIVE AFFECTIVE DISORDER RECURRENT EPISODE MODERATE DEGREE 08/05/2008 KELLY CABAN APRN 296.32 MAJOR DEPRESSIVE AFFECTIVE DISORDER RECURRENT EPISODE MODERATE DEGREE 08/05/2008 KELLY CABAN APRN 296.32 MAJOR DEPRESSIVE AFFECTIVE DISORDER RECURRENT EPISODE MODERATE DEGREE 08/05/2008 VALADEZ DO CHICHI K 296.32 MAJOR DEPRESSIVE AFFECTIVE DISORDER RECURRENT EPISODE MODERATE DEGREE 08/05/2008 VALADEZ DO, CHICHI K 296.32 MAJOR DEPRESSIVE AFFECTIVE DISORDER RECURRENT EPISODE MODERATE DEGREE 08/05/2008 SHANNON KLINE APRN A 296.32 MAJOR DEPRESSIVE AFFECTIVE DISORDER RECURRENT EPISODE MODERATE DEGREE 08/05/2008 CHARLES HARGROVE PHD 296.32 MAJOR DEPRESSIVE AFFECTIVE DISORDER RECURRENT EPISODE MODERATE DEGREE 08/05/2008 CHARLES HARGROVE PHD 296.32 MAJOR DEPRESSIVE AFFECTIVE DISORDER RECURRENT EPISODE MODERATE DEGREE 08/05/2008 SHANNON KLINE APRN A 296.32 MAJOR DEPRESSIVE AFFECTIVE DISORDER RECURRENT EPISODE MODERATE DEGREE 11/01/2008 KELLY CABAN APRN 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 11/01/2008 KELLY CABAN APRN 314.01 ATTENTION-DEFICIT HYPERACTIVITY DISORDER 11/01/2008 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 11/01/2008 314.01 ATTENTION-DEFICIT HYPERACTIVITY DISORDER 11/01/2008 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 11/01/2008 314.01 ATTENTION-DEFICIT HYPERACTIVITY DISORDER 11/01/2008 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 11/01/2008 314.01 ATTENTION-DEFICIT HYPERACTIVITY DISORDER 11/01/2008 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 11/01/2008 314.01 ATTENTION-DEFICIT HYPERACTIVITY DISORDER 11/01/2008 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 11/01/2008 314.01 ATTENTION-DEFICIT HYPERACTIVITY DISORDER 11/01/2008 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 11/01/2008 314.01 ATTENTION-DEFICIT HYPERACTIVITY DISORDER 11/01/2008 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 11/01/2008 314.01 ATTENTION-DEFICIT HYPERACTIVITY DISORDER 11/01/2008 KELLY CABAN APRN 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 11/01/2008 KELLY CABAN APRN 314.01 ATTENTION-DEFICIT HYPERACTIVITY DISORDER 11/01/2008 RAISASHANNON Obando APRN A 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 11/01/2008 RAISASHANNON Obando APRN A 314.01 ATTENTION-DEFICIT HYPERACTIVITY DISORDER 11/01/2008 ALLYSON DO CHICHI K 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 11/01/2008 VALADEZ DO CHICHI K 314.01 ATTENTION-DEFICIT HYPERACTIVITY DISORDER 11/01/2008 KELLY CABAN APRN 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 11/01/2008 KELLY CABAN APRN 314.01 ATTENTION-DEFICIT HYPERACTIVITY DISORDER 11/01/2008 KELLY CABAN APRN 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 11/01/2008 KELLY CABAN APRN 314.01 ATTENTION-DEFICIT HYPERACTIVITY DISORDER 11/01/2008 KELLY CABAN APRN 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 11/01/2008 KELLY CABAN APRN 314.01 ATTENTION-DEFICIT HYPERACTIVITY DISORDER 11/01/2008 VALADEZ DO, CHICHI K 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 11/01/2008 VALADEZ DO, CHICHI K 314.01 ATTENTION-DEFICIT HYPERACTIVITY DISORDER 11/01/2008 VALADEZ DO, CHICHI K 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 11/01/2008 VALADEZ DO, CHICHI K 314.01 ATTENTION-DEFICIT HYPERACTIVITY DISORDER 11/01/2008 RAISA CAO SHANNON A 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 11/01/2008 RAISANITA Obando APRNIDI A 314.01 ATTENTION-DEFICIT HYPERACTIVITY DISORDER 11/01/2008 CHARLES HARGROVE PHD 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 11/01/2008 CHARLES HARGROVE PHD 314.01 ATTENTION-DEFICIT HYPERACTIVITY DISORDER 11/01/2008 CHARLES HARGROVE PHD 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 11/01/2008 CHARLES HARGROVE PHD 314.01 ATTENTION-DEFICIT HYPERACTIVITY DISORDER 11/01/2008 SHANNON KLINE APRN A 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 11/01/2008 SHANNON KLINE APRN A 314.01 ATTENTION-DEFICIT HYPERACTIVITY DISORDER 11/23/2008 KELLY CABAN APRN 884.0 OPEN WOUND OF THE UPPER EXTREMITY 11/23/2008 884.0 OPEN WOUND OF THE UPPER EXTREMITY 11/23/2008 884.0 OPEN WOUND OF THE UPPER EXTREMITY 11/23/2008 884.0 OPEN WOUND OF THE UPPER EXTREMITY 11/23/2008 884.0 OPEN WOUND OF THE UPPER EXTREMITY 11/23/2008 884.0 OPEN WOUND OF THE UPPER EXTREMITY 11/23/2008 884.0 OPEN WOUND OF THE UPPER EXTREMITY 11/23/2008 884.0 OPEN WOUND OF THE UPPER EXTREMITY 11/23/2008 KELLY CABAN APRN 884.0 OPEN WOUND OF THE UPPER EXTREMITY 11/23/2008 SHANNON KLINE APRN A 884.0 OPEN WOUND OF THE UPPER EXTREMITY 11/23/2008 TIFFANIE VALADEZ DOA K 884.0 OPEN WOUND OF THE UPPER EXTREMITY 11/23/2008 KELLY CABAN APRN 884.0 OPEN WOUND OF THE UPPER EXTREMITY 11/23/2008 KELLY CABAN APRN 884.0 OPEN WOUND OF THE UPPER EXTREMITY 11/23/2008 KELLY CABAN APRN 884.0 OPEN WOUND OF THE UPPER EXTREMITY 11/23/2008 VALADEZ DO, CHICHI K 884.0 OPEN WOUND OF THE UPPER EXTREMITY 11/23/2008 VALADEZ DO, CHICHI K 884.0 OPEN WOUND OF THE UPPER EXTREMITY 11/23/2008 SHANNON KLINE APRN A 884.0 OPEN WOUND OF THE UPPER EXTREMITY 11/23/2008 CHARLES HARGROVE PHD 884.0 OPEN WOUND OF THE UPPER EXTREMITY 11/23/2008 CHARLES HARGROVE PHD 884.0 OPEN WOUND OF THE UPPER EXTREMITY 11/23/2008 SHANNON KLINE APRN A 884.0 OPEN WOUND OF THE UPPER EXTREMITY 02/20/2009 KELLY CABAN APRN 462 sore throat 02/20/2009 462 sore throat 02/20/2009 462 sore throat 02/20/2009 462 sore throat 02/20/2009 462 sore throat 02/20/2009 462 sore throat 02/20/2009 462 sore throat 02/20/2009 462 SORE THROAT 02/20/2009 KELLY CABAN APRN 462 SORE THROAT 02/20/2009 SHANNON KLINE APRN A 462 SORE THROAT 02/20/2009 VALADEZ DO, CHICHI K 462 SORE THROAT 02/20/2009 KELLY CABAN APRN 462 SORE THROAT 02/20/2009 KELLY CABAN APRN 462 SORE THROAT 02/20/2009 KELLY CABAN APRN 462 SORE THROAT 02/20/2009 VALADEZ DO, CHICHI K 462 SORE THROAT 02/20/2009 VALADEZ DO, CHICHI K 462 SORE THROAT 02/20/2009 SHANNON KLINE APRN A 462 SORE THROAT 02/20/2009 BEENA YANG, CHARLES Esteves 462 SORE THROAT 02/20/2009 BEENA YANG, CHARLES Esteves 462 SORE THROAT 02/20/2009 SHANNON KLINE APRN A 462 SORE THROAT 06/05/2009 KELLY CABAN APRN 787.01 nausea with vomiting 06/05/2009 KELLY CABAN APRN 787.91 diarrhea 06/05/2009 787.01 nausea with vomiting 06/05/2009 787.91 diarrhea 06/05/2009 787.01 nausea with vomiting 06/05/2009 787.91 diarrhea 06/05/2009 787.01 nausea with vomiting 06/05/2009 787.91 diarrhea 06/05/2009 787.01 nausea with vomiting 06/05/2009 787.91 diarrhea 06/05/2009 787.01 nausea with vomiting 06/05/2009 787.91 diarrhea 06/05/2009 787.01 nausea with vomiting 06/05/2009 787.91 diarrhea 06/05/2009 787.01 NAUSEA WITH VOMITING 06/05/2009 787.91 DIARRHEA 06/05/2009 KELLY CABAN APRN 787.01 NAUSEA WITH VOMITING 06/05/2009 KELLY CABAN APRN 787.91 DIARRHEA 06/05/2009 RAISANITA Obando APRNIDI A 787.01 NAUSEA WITH VOMITING 06/05/2009 RAISATopher CAO SHANNON A 787.91 DIARRHEA 06/05/2009 VALADEZ DO, CHICHI K 787.01 NAUSEA WITH VOMITING 06/05/2009 VALADEZ DO, CHICHI K 787.91 DIARRHEA 06/05/2009 KELLY CABAN APRN T 787.01 NAUSEA WITH VOMITING 06/05/2009 KELLY CABAN APRN T 787.91 DIARRHEA 06/05/2009 KELLY CABAN APRN T 787.01 NAUSEA WITH VOMITING 06/05/2009 KELLY CABAN APRN T 787.91 DIARRHEA 06/05/2009 KELLY CABAN APRN T 787.01 NAUSEA WITH VOMITING 06/05/2009 KELLY CABAN APRN T 787.91 DIARRHEA 06/05/2009 VALADEZ DO, CHICHI K 787.01 NAUSEA WITH VOMITING 06/05/2009 VALADEZ DO, CHICHI K 787.91 DIARRHEA 06/05/2009 VALADEZ DO, CHICHI K 787.01 NAUSEA WITH VOMITING 06/05/2009 VALADEZ DO, CHICHI K 787.91 DIARRHEA 06/05/2009 RAISANITA Obando APRNIDI A 787.01 NAUSEA WITH VOMITING 06/05/2009 NITA KLINE APRNIDI A 787.91 DIARRHEA 06/05/2009 BEENA YANG, CHARLES Esteves 787.01 NAUSEA WITH VOMITING 06/05/2009 BEENA YANG, CHARLES Esteves 787.91 DIARRHEA 06/05/2009 BEENA YANG, CHARLES Esteves 787.01 NAUSEA WITH VOMITING 06/05/2009 BEENA YANG, CHARLES Esteves 787.91 DIARRHEA 06/05/2009 RAISANITA KAUR APRNIDI A 787.01 NAUSEA WITH VOMITING 06/05/2009 RAISANITA KAUR APRNIDI A 787.91 DIARRHEA 07/05/2009 KELLY CABAN APRN T 785.6 swollen glands in the neck 07/05/2009 785.6 swollen glands in the neck 07/05/2009 785.6 swollen glands in the neck 07/05/2009 785.6 swollen glands in the neck 07/05/2009 785.6 swollen glands in the neck 07/05/2009 785.6 swollen glands in the neck 07/05/2009 785.6 swollen glands in the neck 07/05/2009 785.6 SWOLLEN GLANDS IN THE NECK 07/05/2009 KELLY CABAN APRN 785.6 SWOLLEN GLANDS IN THE NECK 07/05/2009 SHANNON KLINE APRN A 785.6 SWOLLEN GLANDS IN THE NECK 07/05/2009 VALADEZ DO, CHICHI K 785.6 SWOLLEN GLANDS IN THE NECK 07/05/2009 KELLY CABAN APRN 785.6 SWOLLEN GLANDS IN THE NECK 07/05/2009 KELLY CABAN APRN 785.6 SWOLLEN GLANDS IN THE NECK 07/05/2009 KELLY CABAN APRN 785.6 SWOLLEN GLANDS IN THE NECK 07/05/2009 VALADEZ DO, CHICHI K 785.6 SWOLLEN GLANDS IN THE NECK 07/05/2009 VALADEZ DO, CHICHI K 785.6 SWOLLEN GLANDS IN THE NECK 07/05/2009 SHANNON KLINE APRN A 785.6 SWOLLEN GLANDS IN THE NECK 07/05/2009 BEENA YANG, CHARLES Esteves 785.6 SWOLLEN GLANDS IN THE NECK 07/05/2009 BEENA YANG, CHARLES Esteves 785.6 SWOLLEN GLANDS IN THE NECK 07/05/2009 SHANNON KLINE APRN A 785.6 SWOLLEN GLANDS IN THE NECK 06/25/2010 Ot 789.09 06/26/2010 KELLY CABAN APRN 625.3 DYSMENORRHEA 06/26/2010 KELLY CABAN APRN 787.02 NAUSEA ALONE 06/26/2010 KELLY CABAN APRN V25.41 SURVEILLANCE OF CONTRACEPTIVE PILL 06/26/2010 KELLY CABAN APRN V65.45 COUNSELING ON OTHER SEXUALLY TRANSMITTED DISEASES 06/26/2010 KELLY CABAN APRN V69.2 HIGH-RISK SEXUAL BEHAVIOR 06/26/2010 625.3 DYSMENORRHEA 06/26/2010 787.02 NAUSEA ALONE 06/26/2010 V25.41 SURVEILLANCE OF CONTRACEPTIVE PILL 06/26/2010 V65.45 COUNSELING ON OTHER SEXUALLY TRANSMITTED DISEASES 06/26/2010 V69.2 HIGH-RISK SEXUAL BEHAVIOR 06/26/2010 625.3 DYSMENORRHEA 06/26/2010 787.02 NAUSEA ALONE 06/26/2010 V25.41 SURVEILLANCE OF CONTRACEPTIVE PILL 06/26/2010 V65.45 COUNSELING ON OTHER SEXUALLY TRANSMITTED DISEASES 06/26/2010 V69.2 HIGH-RISK SEXUAL BEHAVIOR 06/26/2010 625.3 DYSMENORRHEA 06/26/2010 787.02 NAUSEA ALONE 06/26/2010 V25.41 SURVEILLANCE OF CONTRACEPTIVE PILL 06/26/2010 V65.45 COUNSELING ON OTHER SEXUALLY TRANSMITTED DISEASES 06/26/2010 V69.2 HIGH-RISK SEXUAL BEHAVIOR 06/26/2010 625.3 DYSMENORRHEA 06/26/2010 787.02 NAUSEA ALONE 06/26/2010 V25.41 SURVEILLANCE OF CONTRACEPTIVE PILL 06/26/2010 V65.45 COUNSELING ON OTHER SEXUALLY TRANSMITTED DISEASES 06/26/2010 V69.2 HIGH-RISK SEXUAL BEHAVIOR 06/26/2010 625.3 DYSMENORRHEA 06/26/2010 787.02 NAUSEA ALONE 06/26/2010 V25.41 SURVEILLANCE OF CONTRACEPTIVE PILL 06/26/2010 V65.45 COUNSELING ON OTHER SEXUALLY TRANSMITTED DISEASES 06/26/2010 V69.2 HIGH-RISK SEXUAL BEHAVIOR 06/26/2010 625.3 DYSMENORRHEA 06/26/2010 787.02 NAUSEA ALONE 06/26/2010 V25.41 SURVEILLANCE OF CONTRACEPTIVE PILL 06/26/2010 V65.45 COUNSELING ON OTHER SEXUALLY TRANSMITTED DISEASES 06/26/2010 V69.2 HIGH-RISK SEXUAL BEHAVIOR 06/26/2010 625.3 DYSMENORRHEA 06/26/2010 787.02 NAUSEA ALONE 06/26/2010 V25.41 SURVEILLANCE OF CONTRACEPTIVE PILL 06/26/2010 V65.45 COUNSELING ON OTHER SEXUALLY TRANSMITTED DISEASES 06/26/2010 V69.2 HIGH-RISK SEXUAL BEHAVIOR 06/26/2010 KELLY CABAN APRN 625.3 DYSMENORRHEA 06/26/2010 KELLY CABAN APRN 787.02 NAUSEA ALONE 06/26/2010 KELLY CABAN APRN V25.41 SURVEILLANCE OF CONTRACEPTIVE PILL 06/26/2010 KELLY CABAN APRN V65.45 COUNSELING ON OTHER SEXUALLY TRANSMITTED DISEASES 06/26/2010 KELLY CABAN APRN V69.2 HIGH-RISK SEXUAL BEHAVIOR 06/26/2010 SHANNON KLINE APRN 625.3 DYSMENORRHEA 06/26/2010 SHANNON KLINE APRN 787.02 NAUSEA ALONE 06/26/2010 SHANNON KLINE APRN V25.41 SURVEILLANCE OF CONTRACEPTIVE PILL 06/26/2010 SHANNON KLINE APRN V65.45 COUNSELING ON OTHER SEXUALLY TRANSMITTED DISEASES 06/26/2010 RAISA HERNANDEZSHANNON Obando A V69.2 HIGH-RISK SEXUAL BEHAVIOR 06/26/2010 VALADEZ DO, CHICHI K 625.3 DYSMENORRHEA 06/26/2010 VALADEZ DO, CHICHI K 787.02 NAUSEA ALONE 06/26/2010 VALADEZ DO, CHICHI K V25.41 SURVEILLANCE OF CONTRACEPTIVE PILL 06/26/2010 VALADEZ DO, CHICHI K V65.45 COUNSELING ON OTHER SEXUALLY TRANSMITTED DISEASES 06/26/2010 VALADEZ DO CHICHI K V69.2 HIGH-RISK SEXUAL BEHAVIOR 06/26/2010 KELLY CABAN APRN 625.3 DYSMENORRHEA 06/26/2010 KELLY CABAN APRN 787.02 NAUSEA ALONE 06/26/2010 KELLY CABAN APRN V25.41 SURVEILLANCE OF CONTRACEPTIVE PILL 06/26/2010 KELLY CABAN APRN V65.45 COUNSELING ON OTHER SEXUALLY TRANSMITTED DISEASES 06/26/2010 KELLY CABAN APRN V69.2 HIGH-RISK SEXUAL BEHAVIOR 06/26/2010 KELLY CABAN APRN 625.3 DYSMENORRHEA 06/26/2010 KELLY CABAN APRN 787.02 NAUSEA ALONE 06/26/2010 KELLY CABAN APRN V25.41 SURVEILLANCE OF CONTRACEPTIVE PILL 06/26/2010 KELLY CABAN APRN V65.45 COUNSELING ON OTHER SEXUALLY TRANSMITTED DISEASES 06/26/2010 KELLY CABAN APRN V69.2 HIGH-RISK SEXUAL BEHAVIOR 06/26/2010 KELLY CABAN APRN 625.3 DYSMENORRHEA 06/26/2010 KELLY CABAN APRN 787.02 NAUSEA ALONE 06/26/2010 KELLY CABAN APRN V25.41 SURVEILLANCE OF CONTRACEPTIVE PILL 06/26/2010 KELLY CABAN APRN V65.45 COUNSELING ON OTHER SEXUALLY TRANSMITTED DISEASES 06/26/2010 KELLY CABAN APRN V69.2 HIGH-RISK SEXUAL BEHAVIOR 06/26/2010 VALADEZ DOTIFFANIEA Allen 625.3 DYSMENORRHEA 06/26/2010 VALADEZ DO CHICHI K 787.02 NAUSEA ALONE 06/26/2010 VALADEZ DO CHICHI K V25.41 SURVEILLANCE OF CONTRACEPTIVE PILL 06/26/2010 VALADEZ DO CHICHI K V65.45 COUNSELING ON OTHER SEXUALLY TRANSMITTED DISEASES 06/26/2010 VALADEZ DO CHICHI K V69.2 HIGH-RISK SEXUAL BEHAVIOR 06/26/2010 VALADEZ DOCHICHI 625.3 DYSMENORRHEA 06/26/2010 ALLYSON YUNGCHICHI K 787.02 NAUSEA ALONE 06/26/2010 ALLYSON YUNGCHICHI K V25.41 SURVEILLANCE OF CONTRACEPTIVE PILL 06/26/2010 ALLYSON YUNG CHICHI K V65.45 COUNSELING ON OTHER SEXUALLY TRANSMITTED DISEASES 06/26/2010 ALLYSON YUNG CHICHI K V69.2 HIGH-RISK SEXUAL BEHAVIOR 06/26/2010 RAISA SHANNON CAO A 625.3 DYSMENORRHEA 06/26/2010 RAISA NITA CAOIDI A 787.02 NAUSEA ALONE 06/26/2010 RAISA NITA CAOIDI A V25.41 SURVEILLANCE OF CONTRACEPTIVE PILL 06/26/2010 RAISASHANNON Obando APRN A V65.45 COUNSELING ON OTHER SEXUALLY TRANSMITTED DISEASES 06/26/2010 SHANNON KLINE APRN A V69.2 HIGH-RISK SEXUAL BEHAVIOR 06/26/2010 CHARLES HARGROVE PHD 625.3 DYSMENORRHEA 06/26/2010 CHARLES HARGROVE PHD 787.02 NAUSEA ALONE 06/26/2010 CHARLES HARGROVE PHD V25.41 SURVEILLANCE OF CONTRACEPTIVE PILL 06/26/2010 CHARLES HARGROVE PHD V65.45 COUNSELING ON OTHER SEXUALLY TRANSMITTED DISEASES 06/26/2010 CHARLES HARGROVE PHD V69.2 HIGH-RISK SEXUAL BEHAVIOR 06/26/2010 CHARLES HARGROVE PHD 625.3 DYSMENORRHEA 06/26/2010 CHARLES HARGROVE PHD 787.02 NAUSEA ALONE 06/26/2010 CHARLES HARGROVE PHD V25.41 SURVEILLANCE OF CONTRACEPTIVE PILL 06/26/2010 CHARLES HARGROVE PHD V65.45 COUNSELING ON OTHER SEXUALLY TRANSMITTED DISEASES 06/26/2010 CHARLES HARGROVE PHD V69.2 HIGH-RISK SEXUAL BEHAVIOR 06/26/2010 RAISASHANNON Obando APRN A 625.3 DYSMENORRHEA 06/26/2010 RAISANITA Obando APRNIDI A 787.02 NAUSEA ALONE 06/26/2010 SHANNON KLINE APRN A V25.41 SURVEILLANCE OF CONTRACEPTIVE PILL 06/26/2010 RAISANITA Obando APRNIDI A V65.45 COUNSELING ON OTHER SEXUALLY TRANSMITTED DISEASES 06/26/2010 RAISANITA Obando APRNIDI A V69.2 HIGH-RISK SEXUAL BEHAVIOR 06/27/2010 KELLY CABAN APRN 564.00 CONSTIPATION 06/27/2010 KELLY CABAN APRN 784.0 HEADACHE 06/27/2010 564.00 CONSTIPATION 06/27/2010 784.0 HEADACHE 06/27/2010 564.00 CONSTIPATION 06/27/2010 784.0 HEADACHE 06/27/2010 564.00 CONSTIPATION 06/27/2010 784.0 HEADACHE 06/27/2010 564.00 CONSTIPATION 06/27/2010 784.0 HEADACHE 06/27/2010 564.00 CONSTIPATION 06/27/2010 784.0 HEADACHE 06/27/2010 564.00 CONSTIPATION 06/27/2010 784.0 HEADACHE 06/27/2010 564.00 CONSTIPATION 06/27/2010 784.0 HEADACHE 06/27/2010 KELLY CABAN APRN 564.00 CONSTIPATION 06/27/2010 KELLY CABAN APRN 784.0 HEADACHE 06/27/2010 RAISATopher CAO SHANNON A 564.00 CONSTIPATION 06/27/2010 RAISATopher CAO SHANNON A 784.0 HEADACHE 06/27/2010 VALADEZ DO, CHICHI K 564.00 CONSTIPATION 06/27/2010 VALADEZ DO, CHICHI K 784.0 HEADACHE 06/27/2010 KELLY CABAN APRN 564.00 CONSTIPATION 06/27/2010 KELLY CABAN APRN 784.0 HEADACHE 06/27/2010 KELLY CABAN APRN 564.00 CONSTIPATION 06/27/2010 KELLY CABAN APRN 784.0 HEADACHE 06/27/2010 KELLY CABAN APRN 564.00 CONSTIPATION 06/27/2010 KELLY CABAN APRN 784.0 HEADACHE 06/27/2010 VALADEZ DO, CHICHI K 564.00 CONSTIPATION 06/27/2010 VALADEZ DO, CHICHI K 784.0 HEADACHE 06/27/2010 VALADEZ DO, CHICHI K 564.00 CONSTIPATION 06/27/2010 VALADEZ DO, CHICHI K 784.0 HEADACHE 06/27/2010 RAISA CAO SHANNON A 564.00 CONSTIPATION 06/27/2010 RAISA CAO SHANNON A 784.0 HEADACHE 06/27/2010 BEENA PHD, CHARLES Esteves 564.00 CONSTIPATION 06/27/2010 CHARLES HARGROVE PHD 784.0 HEADACHE 06/27/2010 CHARLES HARGROVE PHD 564.00 CONSTIPATION 06/27/2010 CHARLES HARGROVE PHD 784.0 HEADACHE 06/27/2010 SHANNON KLINE APRN A 564.00 CONSTIPATION 06/27/2010 SHANNON KLINE APRN A 784.0 HEADACHE 07/26/2010 KELLY CABAN APRN 296.00 BIPOLAR I DISORDER SINGLE MANIC EPISODE UNSPECIFIED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 DHARMESH BLANKENSHIP MD Ot Z53.21 PROC/TRTMT NOT CRD OUT D/T PT [facility]F SEE 09/22/2016 SHANNON KLINE APRN Ot V23.41 PREG W HISTORY OF PRE-TERM LABOR 09/22/2016 SHANNON KLINE PLEATING MACHINE OPERATOR Ot V28.89 OTHER SPECIFIED SCREENING 09/22/2016 FIDEL ALBRECHT MD Ot V23.41 PREG W HISTORY OF PRE-TERM LABOR 09/22/2016 FIDEL ALBRECHT MD Ot V28.81 ENCOUNTER FOR ANATOMIC SURVEY 09/24/2016 DHARMESH BLANKENSHIP MD Ot R21 RASH AND OTHER NONSPECIFIC SKIN ERUPTION 09/24/2016 DHARMESH BLANKENSHIP MD Ot Z53.21 PROC/TRTMT NOT CRD OUT D/T PT LV BEF SEE 09/24/2016 SHANNON KLINE APRN Ot V23.41 PREG W HISTORY OF PRE-TERM LABOR 09/24/2016 SHANNON KLINE PLEATING MACHINE OPERATOR Ot V28.89 OTHER SPECIFIED SCREENING 09/24/2016 FIDEL ALBRECHT MD Ot V23.41 PREG W HISTORY OF PRE-TERM LABOR 09/24/2016 FIDEL ALBRECHT MD Ot V28.81 ENCOUNTER FOR ANATOMIC SURVEY 10/27/2016 SHANNON KLINE APRN Ot V23.41 PREG W HISTORY OF PRE-TERM LABOR 10/27/2016 SHANNON KLINE PLEATING MACHINE OPERATOR Ot V28.89 OTHER SPECIFIED SCREENING 10/27/2016 FIDEL ALBRECHT MD Ot V23.41 PREG W HISTORY OF PRE-TERM LABOR 10/27/2016 FIDEL ALBRECHT MD Ot V28.81 ENCOUNTER FOR ANATOMIC SURVEY 10/27/2016 DHARMESH BLANKENSHIP MD Ot R04.2 HEMOPTYSIS 10/27/2016 DHARMESH BLANKENSHIP MD Ot Z53.21 PROC/TRTMT NOT CRD OUT D/T PT LV BEF SEE 10/27/2016 SHANNON KLINE PLEATING MACHINE OPERATOR Ot V23.41 PREG W HISTORY OF PRE-TERM LABOR 10/27/2016 SHANNON KLINE PLEATING MACHINE OPERATOR Ot V28.89 OTHER SPECIFIED SCREENING 10/27/2016 FIDEL ALBRECHT MD Ot V23.41 PREG W HISTORY OF PRE-TERM LABOR 10/27/2016 FIDEL ALBRECHT MD Ot V28.81 ENCOUNTER FOR ANATOMIC SURVEY 10/29/2016 DHARMESH BLANKENSHIP MD Ot R04.2 HEMOPTYSIS 10/29/2016 DHARMESH BLANKENSHIP MD, Ot Z53.21 PROC/TRTMT NOT CRD OUT D/T PT LV BEF SEE 11/03/2016 SHAGUFTA SOLORIO Ot F41.9 ANXIETY DISORDER, UNSPECIFIED 11/03/2016 SHAGUFTA SOLORIO Ot J45.909 UNSPECIFIED ASTHMA, UNCOMPLICATED 11/03/2016 SHAGUFTA SOLORIO Ot R07.9 CHEST PAIN, UNSPECIFIED 11/03/2016 SHAGUFTA SOLORIO Ot Z63.32 OTHER ABSENCE OF FAMILY MEMBER 11/05/2016 SHAGUFTA SOLORIO Ot F41.9 ANXIETY DISORDER, UNSPECIFIED 11/05/2016 SHAGUFTA SOLORIO Ot J45.909 UNSPECIFIED ASTHMA, UNCOMPLICATED 11/05/2016 SHAGUFTA SOLORIO Ot R07.9 CHEST PAIN, UNSPECIFIED 11/05/2016 SHAGUFTA SOLORIO Ot Z63.32 OTHER ABSENCE OF FAMILY MEMBER 01/19/2017 BEVERLY MUELLER MD Ot R22.2 LOCALIZED SWELLING, MASS AND LUMP, TRUNK 01/19/2017 BEVERLY MUELLER MD Ot Z53.21 PROC/TRTMT NOT CRD OUT D/T PT LV BEF SEE 01/19/2017 SHANNON KLINE APRN Ot V23.41 PREG W HISTORY OF PRE-TERM LABOR 01/19/2017 SHANNON KLINE APRN Ot V28.89 OTHER SPECIFIED SCREENING 01/19/2017 FIDEL ALBRECHT MD Ot V23.41 PREG W HISTORY OF PRE-TERM LABOR 01/19/2017 FIDEL ALBRECHT MD Ot V28.81 ENCOUNTER FOR ANATOMIC SURVEY 01/21/2017 BEVERLY MUELLER MD Ot R22.2 LOCALIZED SWELLING, MASS AND LUMP, TRUNK 01/21/2017 BEVERLY MUELLER MD Ot Z53.21 PROC/TRTMT NOT CRD OUT D/T PT LV BEF SEE 01/21/2017 SHAGUFTA SOLORIO Ot N76.0 ACUTE VAGINITIS 01/21/2017 SHAGUFTA SOLORIO Ot N89.8 OTHER SPECIFIED NONINFLAMMATORY DISORDER 01/21/2017 SHAGUFTA SOLORIO Ot S30.23XA CONTUSION OF VAGINA AND VULVA, INITIAL E 01/21/2017 SHAGUFTA SOLORIO Ot W18.30XA FALL ON SAME LEVEL, UNSPECIFIED, INITIAL 01/21/2017 SHAGUFTA SOLORIO Ot Y92.[address] IN SINGLE-FAMILY (PRIVATE) [place] 01/21/2017 SHAGUFTA SOLORIO Ot Y99.8 OTHER EXTERNAL CAUSE STATUS 01/26/2017 SHAGUFTA SOLORIO Ot N76.0 ACUTE VAGINITIS 01/26/2017 SHAGUFTA SOLORIO Ot N89.8 OTHER SPECIFIED NONINFLAMMATORY DISORDER 01/26/2017 SHAGUFTA SOLORIO Ot S30.23XA CONTUSION OF VAGINA AND VULVA, INITIAL E 01/26/2017 SHAGUFTA SOLORIO Ot W18.30XA FALL ON SAME LEVEL, UNSPECIFIED, INITIAL 01/26/2017 SHAGUFTA SOLORIO Ot Y92.[address] IN SINGLE-FAMILY (PRIVATE) [place] 01/26/2017 SHAGUFTA SOLORIO Ot Y99.8 OTHER EXTERNAL CAUSE STATUS Procedures Code [place] [address] URINE TEST (IN-HOUSE) 10/26/2012 J1055 DEPO-PROVERA INJ 150 MG 10/26/2012 72767 THERAPUTIC INJ SQ/IM 10/26/2012 54995 ROUTINE VENIPUNCTURE 04/05/2013 13236 HEPATITIS PROFILE 04/06/2013 64815 HIV ANTIBODIES (RML) 04/06/2013 13995 SYPHILIS TEST 91911 URINE TEST (IN-HOUSE) 04/12/2013 66940 URINE TEST (IN-HOUSE) 07/29/2013 70330 ROUTINE VENIPUNCTURE 11/30/2013 32579 TSH 11/30/2013 85649 CBC 11/30/2013 6289271 GFR CALC (RESULT ONLY) 11/30/2013 93063 CMP 11/30/2013 16355 UA W/ CULTURE IF INDICATED 03/22/2014 75.69 REPAIR OB LACERATION NEC 07/28/2014 88552 US OB - EARLY <14 WEEKS 12/28/2014 69850 UA LONG DIP 12/28 09933 JOINT INJECTION- LARGE JOINT (SPECIFY MEDCIN DESCRIPTION) 01/05/2015 64528 PSYCH DIAGNOSTIC EVALUATION 01/05/2015 61969 ROUTINE VENIPUNCTURE 01/30/2015 13907 UA OB DIP 2014 54410 CBC 01/30/2015 04841 TRICHOMONAS (IN-HOUSE) 01/30/2015 27472 TSH 01/30/2015 1942947 ANTIBODY SCREEN (RESULT ONLY) 01/30/2015 96189 BLOOD TYPE/Rh FACTOR 01/30/2015 15913 RUBELLA ANTIBODY, IGG 01/31/2015 34296 CULTURE URINE 79779 CULTURE UROGENITAL 02/02/2015 71730 SYPHILLIS-[facility] 02/06/2015 84929 HIV ([facility]) 02/06/2015 33400 ANTIBODY SCREEN (order) 02/06/2015 21298 HEP B SURFACE ANTIGEN (STATE) 02/06/2015 09349 GC/CHLAM PROBE (STATE) 02/06/2015 Results Test Result Range Complete blood count (CBC) with automated white blood cell (WBC) differential - 06/22/16 16:20 Blood leukocytes automated count (number/volume) 9.0 10*3/ uL 4.3-11.0 Blood erythrocytes automated count (number/volume) 4.71 10*6 /uL 4.35-5.85 Venous blood hemoglobin measurement (mass/volume) 13.7 g/dL 11.5-16.0 Blood hematocrit (volume fraction) 40 % 35-52 Automated erythrocyte mean corpuscular volume 85 [foz_us] 80-99 Automated erythrocyte mean corpuscular hemoglobin (mass per erythrocyte) 29 pg 25-34 Automated erythrocyte mean corpuscular hemoglobin concentration measurement ( mass/volume) 34 g/dL 32-36 Automated erythrocyte distribution width ratio 13.3 % 10.0-14.5 Automated blood platelet count (count/volume) 319 10*3/uL 130-400 Automated blood platelet mean volume measurement 10.5 [foz_ us] 7.4-10.4 Automated blood neutrophils/100 leukocytes 68 % 42-75 Automated blood lymphocytes/100 leukocytes 21 % 12-44 Blood monocytes/100 leukocytes 10 % 0-12 Automated blood eosinophils/100 leukocytes 0 % 0-10 Automated blood basophils/100 leukocytes 0 % 0-10 Blood neutrophils automated count (number/volume) 6.1 10*3 1.8-7.8 Blood lymphocytes automated count (number/volume) 1.9 10*3 1.0-4.0 Blood monocytes automated count (number/volume) 0.9 10*3 0.0-1.0 Automated eosinophil count 0.0 10*3/uL 0.0-0.3 Automated blood basophil count (count/volume) 0.0 10*3/uL 0.0-0.1 Complete urinalysis with reflex to culture - 06/22/16 16:20 Urine color determination YELLOW NRG Urine clarity determination CLEAR NRG Urine pH measurement by test strip 5 5- 9 Specific gravity of urine by test strip 1.025 1.016-1.022 Urine protein assay by test strip, semi-quantitative 2+ NEGATIVE Urine glucose detection by automated test strip NEGATIVE NEGATIVE Erythrocytes detection in urine sediment by light microscopy 1+ NEGATIVE Urine ketones detection by automated test strip NEGATIVE NEGATIVE Urine nitrite detection by test strip NEGATIVE NEGATIVE Urine total bilirubin detection by test strip NEGATIVE NEGATIVE Urine urobilinogen measurement by automated test strip (mass/volume) NORMAL NORMAL Urine leukocyte esterase detection by dipstick NEGATIVE NEGATIVE Automated urine sediment erythrocyte count by microscopy (number/high power field) [HPF] NRG Automated urine sediment leukocyte count by microscopy (number/high power field ) [HPF] NRG Bacteria detection in urine sediment by light microscopy FEW NRG Squamous epithelial cells detection in urine sediment by light microscopy 5-10 NRG Crystals detection in urine sediment by light microscopy NONE NRG Casts detection in urine sediment by light microscopy NONE NRG Mucus detection in urine sediment by light microscopy MODERATE NRG Complete urinalysis with reflex to culture YES NR Comprehensive metabolic panel - 06/22/16 16:20 Serum or plasma sodium measurement (moles/volume) 142 mmol/ L 135-145 Serum or plasma potassium measurement (moles/volume) 3.6 mmol/L 3.6-5.0 Serum or plasma chloride measurement (moles/volume) 109 mmol /L 98-107 Carbon dioxide 21 mmol/L 21-32 Serum or plasma anion gap determination (moles/volume) 12 mmol/L 5-14 Serum or plasma urea nitrogen measurement (mass/volume) 17 mg/dL 7-18 Serum or plasma creatinine measurement (mass/volume) 0.75 mg /dL 0.60-1.30 Serum or plasma urea nitrogen/creatinine mass ratio 23 NRG Serum or plasma creatinine measurement with calculation of estimated glomerular filtration rate > NRG Serum or plasma glucose measurement (mass/volume) 83 mg/dL 70-105 Serum or plasma calcium measurement (mass/volume) 9.4 mg/dL 8.5-10.1 Serum or plasma total bilirubin measurement (mass/volume) 0.5 mg/dL 0.1-1.0 Serum or plasma alkaline phosphatase measurement (enzymatic activity/volume) 43 U/L 40-136 Serum or plasma aspartate aminotransferase measurement (enzymatic activity/ volume) 21 U/L 5-34 Serum or plasma alanine aminotransferase measurement (enzymatic activity/volume ) 21 U/L 0-55 Serum or plasma protein measurement (mass/volume) 7.3 g/dL 6.4-8.2 Serum or plasma albumin measurement (mass/volume) 4.6 g/dL 3.2-4.5 Lipase - 06/22/16 16:20 Lipase 7 U/L 8-78 Bacterial urine culture - 06/22/16 16:20 URINE CULTURE RESULTS MORE THAN 3 ISOLATES NRG Complete urinalysis with reflex to culture - 07/21/16 18:55 Urine color determination YELLOW NRG Urine clarity determination SLIGHTLY CLOUDY NRG Urine pH measurement by test strip 7 5- 9 Specific gravity of urine by test strip 1.010 1.016-1.022 Urine protein assay by test strip, semi-quantitative NEGATIVE NEGATIVE Urine glucose detection by automated test strip NEGATIVE NEGATIVE Erythrocytes detection in urine sediment by light microscopy NEGATIVE NEGATIVE Urine ketones detection by automated test strip NEGATIVE NEGATIVE Urine nitrite detection by test strip NEGATIVE NEGATIVE Urine total bilirubin detection by test strip NEGATIVE NEGATIVE Urine urobilinogen measurement by automated test strip (mass/volume) NORMAL NORMAL Urine leukocyte esterase detection by dipstick 1+ NEGATIVE Automated urine sediment erythrocyte count by microscopy (number/high power field) NONE NRG Automated urine sediment leukocyte count by microscopy (number/high power field ) [HPF] NRG Bacteria detection in urine sediment by light microscopy FEW NRG Squamous epithelial cells detection in urine sediment by light microscopy >50 NRG Crystals detection in urine sediment by light microscopy PRESENT NRG Casts detection in urine sediment by light microscopy NONE NRG Mucus detection in urine sediment by light microscopy NEGATIVE NRG Complete urinalysis with reflex to culture NO NRG Amorphous sediment detection in urine sediment by light microscopy FEW SAMEER PHOSPHATE NRG Renal epithelial cells detection in urine sediment by light microscopy NONE NRG Complete blood count (CBC) with automated white blood cell (WBC) differential - 11/03/16 11:57 Blood leukocytes automated count (number/volume) 9.6 10*3/ uL 4.3-11.0 Blood erythrocytes automated count (number/volume) 5.22 10*6 /uL 4.35-5.85 Venous blood hemoglobin measurement (mass/volume) 15.3 g/dL 11.5-16.0 Blood hematocrit (volume fraction) 44 % 35-52 Automated erythrocyte mean corpuscular volume 84 [foz_us] 80-99 Automated erythrocyte mean corpuscular hemoglobin (mass per erythrocyte) 29 pg 25-34 Automated erythrocyte mean corpuscular hemoglobin concentration measurement ( mass/volume) 35 g/dL 32-36 Automated erythrocyte distribution width ratio 13.1 % 10.0-14.5 Automated blood platelet count (count/volume) 443 10*3/uL 130-400 Automated blood platelet mean volume measurement 10.0 [foz_ us] 7.4-10.4 Automated blood neutrophils/100 leukocytes 70 % 42-75 Automated blood lymphocytes/100 leukocytes 21 % 12-44 Blood monocytes/100 leukocytes 8 % 0-12 Automated blood eosinophils/100 leukocytes 1 % 0-10 Automated blood basophils/100 leukocytes 0 % 0-10 Blood neutrophils automated count (number/volume) 6.7 10*3 1.8-7.8 Blood lymphocytes automated count (number/volume) 2.0 10*3 1.0-4.0 Blood monocytes automated count (number/volume) 0.7 10*3 0.0-1.0 Automated eosinophil count 0.1 10*3/uL 0.0-0.3 Automated blood basophil count (count/volume) 0.0 10*3/uL 0.0-0.1 Comprehensive metabolic panel - 11/03/16 11:57 Serum or plasma sodium measurement (moles/volume) 141 mmol/ L 135-145 Serum or plasma potassium measurement (moles/volume) 3.9 mmol/L 3.6-5.0 Serum or plasma chloride measurement (moles/volume) 109 mmol /L 98-107 Carbon dioxide 24 mmol/L 21-32 Serum or plasma anion gap determination (moles/volume) 8 mmol/L 5-14 Serum or plasma urea nitrogen measurement (mass/volume) 10 mg/dL 7-18 Serum or plasma creatinine measurement (mass/volume) 0.87 mg /dL 0.60-1.30 Serum or plasma urea nitrogen/creatinine mass ratio 11 NRG Serum or plasma creatinine measurement with calculation of estimated glomerular filtration rate > NRG Serum or plasma glucose measurement (mass/volume) 92 mg/dL 70-105 Serum or plasma calcium measurement (mass/volume) 9.4 mg/dL 8.5-10.1 Serum or plasma total bilirubin measurement (mass/volume) 0.3 mg/dL 0.1-1.0 Serum or plasma alkaline phosphatase measurement (enzymatic activity/volume) 50 U/L 40-136 Serum or plasma aspartate aminotransferase measurement (enzymatic activity/ volume) 21 U/L 5-34 Serum or plasma alanine aminotransferase measurement (enzymatic activity/volume ) 23 U/L 0-55 Serum or plasma protein measurement (mass/volume) 7.2 g/dL 6.4-8.2 Serum or plasma albumin measurement (mass/volume) 4.3 g/dL 3.2-4.5 Magnesium - 11/03/16 11:57 Magnesium 2.4 mg/dL 1.8-2.4 Serum or plasma troponin i.cardiac measurement (mass/volume) - 11/03/16 11:57 Serum or plasma troponin i.cardiac measurement (mass/volume) < ng/mL <0.30 Serum or plasma salicylates measurement (mass/volume) - 11/03/16 11:57 Serum or plasma salicylates measurement (mass/volume) < mg/ dL 5.0-20.0 Serum or plasma acetaminophen measurement (mass/volume) - 11/03/16 11:57 Serum or plasma acetaminophen measurement (mass/volume) < ug /mL 10-30 Serum or plasma ethanol measurement (mass/volume) - 11/03/16 11:57 Serum or plasma ethanol measurement (mass/volume) < mg/dL <10 Serum or plasma thyrotropin measurement by detection limit <=0.05 miu/l (units/ volume) - 11/03/16 11:57 Serum or plasma thyrotropin measurement by detection limit <=0.05 miu/l (units/ volume) 1.05 u[iU]/mL 0.35-4.94 Complete urinalysis with reflex to culture - 11/03/16 12:34 Urine color determination YELLOW NRG Urine clarity determination SLIGHTLY CLOUDY NRG Urine pH measurement by test strip 7 5- 9 Specific gravity of urine by test strip 1.015 1.016-1.022 Urine protein assay by test strip, semi-quantitative NEGATIVE NEGATIVE Urine glucose detection by automated test strip NEGATIVE NEGATIVE Erythrocytes detection in urine sediment by light microscopy NEGATIVE NEGATIVE Urine ketones detection by automated test strip NEGATIVE NEGATIVE Urine nitrite detection by test strip NEGATIVE NEGATIVE Urine total bilirubin detection by test strip NEGATIVE NEGATIVE Urine urobilinogen measurement by automated test strip (mass/volume) NORMAL NORMAL Urine leukocyte esterase detection by dipstick NEGATIVE NEGATIVE Automated urine sediment erythrocyte count by microscopy (number/high power field) NONE NRG Automated urine sediment leukocyte count by microscopy (number/high power field ) NONE NRG Bacteria detection in urine sediment by light microscopy TRACE NRG Squamous epithelial cells detection in urine sediment by light microscopy 5-10 NRG Crystals detection in urine sediment by light microscopy NONE NRG Casts detection in urine sediment by light microscopy NONE NRG Mucus detection in urine sediment by light microscopy NEGATIVE NRG Complete urinalysis with reflex to culture NO NRG Amorphous sediment detection in urine sediment by light microscopy MOD SAMEER URATES NRG Urine beta human chorionic gonadotropin (hCG) measurement - 11/03/16 12:34 Urine beta human chorionic gonadotropin (hCG) measurement NEGATIVE NEGATIVE Urine drug screening test - 11/03/16 12:34 Urine phencyclidine detection by screening method NEGATIVE NEGATIVE Urine benzodiazepines detection by screening method POSITIVE NEGATIVE Urine cocaine detection NEGATIVE NEGATIVE Urine amphetamines detection by screening method POSITIVE NEGATIVE Urine methamphetamine detection by screening method NEGATIVE NEGATIVE Urine cannabinoids detection by screening method NEGATIVE NEGATIVE Urine opiates detection by screening method NEGATIVE NEGATIVE Urine barbiturates detection NEGATIVE NEGATIVE Screening urine tricyclic antidepressants detection NEGATIVE NEGATIVE Urine methadone detection by screening method NEGATIVE NEGATIVE Urine oxycodone detection NEGATIVE NEGATIVE Urine propoxyphene detection NEGATIVE NEGATIVE Bacteria identification in genital specimen by aerobe culture - 01/20/17 13:29 FREE TEXT EXTERNAL PLUS NORMAL JOAN NRG QUANTITY OF GROWTH Abundant Growth NRG Bacteria identification in genital specimen by aerobe culture [id number] NRG Neisseria gonorrhoeae DNA detection by probe and signal amplification method - 01/20/17 13:29 Gonorrhea amp DNA-urine Negative Negative Microscopic examination by wet preparation - 01/20/17 13:29 WET PREP RESULTS NO YEAST OBSERVED, NO TRICHOMONAS OBSERVED NRG Chlamydia trachomatis DNA detection by probe and signal amplification method - 01/20/17 13:29 Chlamydia trachomatis DNA detection by probe and target amplification method Negative Negative Encounters ACCT No. Visit Date/Time Discharge Status Pt. Type Provider Facility Loc./Unit Complaint [id number] 01/30/2015 14:41:00 01/30/2015 23: 59:59 CLS Outpatient SHANNON KLINE APRN [id number] 01/09/2015 15:57:00 01/09/2015 23: 59:59 CLS Outpatient CHARLES HARGROVE PHD [id number] 01/05/2015 16:22:00 01/05/2015 23: 59:59 CLS Outpatient CHARLES HARGROVE PHD [id number] 12/28/2014 15:31:00 12/28/2014 23: 59:59 CLS Outpatient SHANNON KLINE APRN [id number] 03/22/2014 16:11:00 03/22/2014 23: 59:59 CLS Outpatient CHICHI VALADEZ DO [id number] 03/22/2014 16:11:00 03/22/2014 23: 59:59 CLS Outpatient CHICHI VALADEZ DO [id number] 11/30/2013 13:16:00 11/30/2013 23: 59:59 CLS Outpatient KELLY CABAN APRN [id number] 11/26/2013 15:51:00 11/26/2013 23: 59:59 CLS Outpatient KELLY CABAN APRN [id number] 09/24/2013 10:36:00 09/24/2013 23: 59:59 CLS Outpatient ARSH HERNANDEZNKELLY Karen [id number] 09/01/2013 15:21:00 09/01/2013 23: 59:59 CLS Outpatient CHICHI VALADEZ DO [id number] 07/29/2013 10:17:00 07/29/2013 23: 59:59 CLS Outpatient SHANNON KLINE APRN [id number] 06/21/2013 16:44:00 06/21/2013 23: 59:59 CLS Outpatient ARSH PLEATING MACHINE OPERATORKELLY Obando [id number] 11/03/2012 09:52:00 11/03/2012 23: 59:59 CLS Outpatient [id number] 10/30/2012 15:28:00 10/30/2012 23: 59:59 CLS Outpatient [id number] 10/26/2012 12:12:00 10/26/2012 23: 59:59 CLS Outpatient [id number] 09/02/2012 14:55:00 09/02/2012 23: 59:59 CLS Outpatient [id number] 08/06/2012 09:59:00 08/06/2012 23: 59:59 CLS Outpatient ARSH HERNANDEZNKELLY Karen [id number] 06/05/2013 13:44:00 Document Registration [id number] 04/12/2013 14:58:00 Document Registration [id number] 04/05/2013 13:56:00 Document Registration
--- OUTSIDE RECORDS SUMMARY | 2017-02-23 06:15 | XMS REPORT ---
Author Author KELLY CABAN [facility] Address [address] [place] [address] Care Team Providers Care District Manager Primary Care Sales Name Role Phone KELLY CABAN Unavailable PROBLEMS Type Condition ICD9-CM Code TOL50-BZ Code Onset Dates Condition Status SNOMED Code Problem Evaluation for contraceptive injection Z30.013 Active 91492337 Problem Anxiety associated with depression F41.8 Active 559377132 Problem Depressive disorder F32.9 Active 19530379 Problem Generalized anxiety disorder F41.1 Active [id number] ALLERGIES Unknown Allergies SOCIAL HISTORY No smoking Hx information available PLAN OF CARE VITAL SIGNS MEDICATIONS Unknown Medications RESULTS No Results PROCEDURES No Known procedures IMMUNIZATIONS No Known Immunizations
--- OUTSIDE RECORDS SUMMARY | 2017-02-23 06:15 | XMS REPORT ---
Author Author HODAN VENEGAS [employer] Address Unknown Phone Unavailable Care Team Providers Care Airline Captain Name Role Phone HODAN VENEGAS CP Unavailable Allergies, Adverse Reactions, Alerts Substance Reaction Event Type N.K.D.A. Info Not Available Non Drug Allergy Problems Problem Type Condition Code Onset Dates Condition Status Assessment Unprotected sex Z72.51 Active Assessment Anxiety associated with depression F41.8 Active Problem Anxiety associated with depression F41.8 Active Problem Depressive disorder F32.9 Active Problem Evaluation for contraceptive injection Z30.013 Active Assessment Encounter for counseling regarding contraception Z30.9 Active Assessment Evaluation for contraceptive injection Z30.013 Active Problem Generalized anxiety disorder F41.1 Active Assessment Routine follow-up Z39.2 Active Medications Medication Code System Code Instructions Start Date End Date Status Dosage Vyvanse [facility] [address]-51 70 MG Orally Once a day Aug 23, 2015 1 capsule in the morning HydrOXYzine HCl [facility] [address]-25 25 MG Orally every 8 hrs May 10, 2015 1 tablet as needed Depo-Provera [facility] [address]-23 150 MG/ML Intramuscular every 3 months Sep 28, 2015 1 ml Procedures Procedure Coding System Code Date DEPO PROVERA (150 MG/ML) CPT-4 J1050 Sep 28, 2015 THER/PROPH/DIAG INJ, SC/IM CPT-4 28108 Sep 28, 2015 URINE TEST CPT-4 18779 Sep 28, 2015 Office Visit, Est Pt., Level 3 CPT-4 92550 Sep 28, 2015 Vital Signs Date/Time: Sep 28, 2015 Temperature 97.8 F Weight 132.6 lbs Height 63 in BMI 23.49 Index Blood Pressure Diastolic 66 mmHg Blood Pressure Systolic 112 mmHg Cardiac Monitoring Heart Rate 76 bpm Results Name Result Date Reference Range Unit Abnormality Flag TEST, URINE (IN HOUSE) ----RESULTS neg [id number] ----Lot # [id number] ----Control pos [id number] ----Exp date [id number] Summary Purpose [employer] Submission
--- OUTSIDE RECORDS SUMMARY | 2017-02-23 06:15 | XMS REPORT ---
Author Author KELLY CABAN Organization [employer] Address Unknown Phone Unavailable Care Team Providers Care Contact Lens Curve Grinder Name Role Phone KELLY CABAN CP Unavailable Allergies No Known Allergies Problems Problem Type Condition Code Onset Dates Condition Status Problem Attention deficit hyperactivity disorder (ADHD), unspecified ADHD type F90.9 Active Problem Arthritis M19.90 Active Problem Anxiety F41.9 Active Problem Depressive disorder F32.9 Active Problem Generalized anxiety disorder F41.1 Active Problem Evaluation for contraceptive injection Z30.013 Active Problem Anxiety associated with depression F41.8 Active Medications No Known Medications Results No Known Results Summary Purpose [employer] Submission
--- OUTSIDE RECORDS SUMMARY | 2017-02-23 06:15 | XMS REPORT ---
Author Author KELLY CABAN Organization [employer] Address Unknown Phone Unavailable Care Team Providers Care Paint Mixer Hand Name Role Phone KELLY CABAN CP Unavailable [...] Start Date End Date Status Dosage Vyvanse [facility] [address]-10 70 MG Orally Once a day Aug 23, 2015 1 capsule in the morning Results No Known Results Summary Purpose [employer] Submission
--- OUTSIDE RECORDS SUMMARY | 2017-02-23 06:16 | XMS REPORT ---
Author Author KELLY CABAN Organization [employer] Address Unknown Phone Unavailable Care Team Providers Care Band Nailer Name Role Phone KELLY CABAN CP Unavailable Allergies No Known Allergies Problems Problem Type Condition Code Onset Dates Condition Status Problem Anxiety associated with depression F41.8 Active Problem Depressive disorder F32.9 Active Problem Evaluation for contraceptive injection Z30.013 Active Problem Generalized anxiety disorder F41.1 Active Medications Medication Code System Code Instructions Start Date End Date Status Dosage Vyvanse [facility] [address]-98 50 mg Orally Once a day March 06, 2016 1 capsule in the morning Results No Known Results Summary Purpose [employer] Submission
--- OUTSIDE RECORDS SUMMARY | 2017-02-23 06:17 | XMS REPORT ---
Author Author MIREYA MARC [facility] eClinicalWorks Address Unknown Phone Unavailable Care Team Providers Care Donor Relations Officer Name Role Phone MIREYA MARC CP Unavailable Allergies, Adverse Reactions, Alerts Substance [...] V01.79 Active Problem Dysuria 788.1 Active Assessment Right wrist pain M25.531 Active Problem Generalized anxiety disorder 300.02 Active [...] Start Date End Date Status Dosage Vyvanse [facility] [address]-96 70 MG Orally Once a day Aug 23, 2015 1 capsule in the morning HydrOXYzine HCl [facility] [address]-09 25 MG Orally every 8 hrs May 10, 2015 1 tablet as needed Procedures Procedure Coding System Code Date Office Visit, Est Pt., Level 3 CPT-4 99093 Aug 31, 2015 X-RAY EXAM OF WRIST CPT-4 34931 Aug 31, 2015 Vital Signs Date/Time: Aug 31, 2015 Temperature 98.6 F Weight 136.7 lbs Height 63 in Pain Scale 1-5 1-10 Blood Pressure Diastolic 70 mmHg Blood Pressure Systolic 100 mmHg Cardiac Monitoring Heart Rate 80 bpm BMI 24.21 Index Results Name Result Date Reference Range Unit Abnormality Flag Xray : Wrist, Right 3 views (IN HOUSE) Summary Purpose eClinicalWorks Submission
--- OUTSIDE RECORDS SUMMARY | 2017-02-23 06:17 | XMS REPORT ---
Author Author KELLY CABAN Organization eClinicalWorks Address Unknown Phone Unavailable Care Team Providers Care House Piping Inspector Name Role Phone KELLY CABAN CP Unavailable [...] diseases V01.79 Active Problem Dysuria 788.1 Active Problem Generalized anxiety disorder 300.02 Active [...] care or not applicable 649.00 Active Medications No Known Medications Results No Known Results Summary Purpose eClinicalWorks Submission
--- OUTSIDE RECORDS SUMMARY | 2017-02-23 06:17 | XMS REPORT ---
Author Author KELLY CABAN Organization eClinicalWorks Address Unknown Phone Unavailable Care Team Providers Care Oyster Grader Name Role Phone KELLY CABAN CP Unavailable Allergies No Known Allergies Problems Problem Type Condition Code Onset Dates Condition Status Problem Anxiety associated with depression F41.8 Active Problem Depressive disorder F32.9 Active Problem Evaluation for contraceptive injection Z30.013 Active Problem Generalized anxiety disorder F41.1 Active Assessment Supervision of with history of pre-term labor V23.41 Active Medications Medication Code System Code Instructions Start Date End Date Status Dosage HydrOXYzine HCl [facility] [address]-48 25 MG Orally every 8 hrs May 10, 2015 1 tablet as needed Results No Known Results Summary Purpose eClinicalWorks Submission
--- OUTSIDE RECORDS SUMMARY | 2017-02-23 06:17 | XMS REPORT ---
Author Author KELLY CABAN [facility] eClinicalWorks Address Unknown Phone Unavailable Care Team Providers Care Webmaster Name Role Phone KELLY CABAN CP Unavailable Allergies, Adverse Reactions, Alerts Substance Reaction Event Type Lexapro Info Not Available Drug Allergy Problems Problem Type Condition Code Onset Dates Condition Status Assessment Pityriasis L21.0 Active Assessment Encounter for immunization Z23 Active Assessment Anxiety F41.9 Active Problem Attention deficit hyperactivity disorder (ADHD), unspecified ADHD type F90.9 Active Problem Arthritis M19.90 Active Problem Anxiety F41.9 Active Problem Depressive disorder F32.9 Active Problem Generalized anxiety disorder F41.1 Active Problem Evaluation for contraceptive injection Z30.013 Active Problem Anxiety associated with depression F41.8 Active Medications Medication Code System Code Instructions Start Date End Date Status Dosage Ativan [facility] [address]-50 1 MG Orally 2 times a day Jul 15, 2016 1 tablet as needed Vyvanse [facility] [address]-61 60 mg Orally Once a day Sep 02, 2016 1 capsule in the morning Procedures Procedure Coding System Code Date SINGLE IMMUNIZATION ADMIN CPT-4 98488 Sep 02, 2016 Office Visit, Est Pt., Level 3 CPT-4 94759 Sep 02, 2016 FLUARIX QUAD P-FREE 3 AND UP .50 2015 CPT-4 53151 Sep 02, 2016 Vital Signs Date/Time: Sep 02, 2016 Cardiac Monitoring Heart Rate 100 bpm Weight 131.0 lbs Height 63 in BMI 23.20 Index Blood Pressure Diastolic 68 mmHg Blood Pressure Systolic 108 mmHg Results No Known Results Immunizations Vaccine Administration Date FLUARIX QUAD P-FREE 3 AND UP .50 2015Sep 02, 2016 Summary Purpose eClinicalWorks Submission
--- OUTSIDE RECORDS SUMMARY | 2017-02-23 06:17 | XMS REPORT ---
Author Author GRAZYNA NATHAN eClinicalWorks Address Unknown Phone Unavailable Care Team Providers Care Sales Assistant Entertainment And Media Name Role Phone GRAZYNA NATHAN CP Unavailable Allergies, Adverse Reactions, Alerts Substance Reaction Event Type Lexapro Info Not Available Drug Allergy Problems Problem Type Condition Code Onset Dates Condition Status Assessment Bronchitis J40 Active Problem Attention deficit hyperactivity disorder (ADHD), unspecified ADHD type F90.9 Active Problem Arthritis M19.90 Active Problem Anxiety F41.9 Active Problem Depressive disorder F32.9 Active Problem Generalized anxiety disorder F41.1 Active Problem Evaluation for contraceptive injection Z30.013 Active Problem Anxiety associated with depression F41.8 Active Medications Medication Code System Code Instructions Start Date End Date Status Dosage PredniSONE [facility] [address]-29 20 MG Orally Once a day Jul 25, 2016 Jul 28, 2016 1 tablet Azithromycin [facility] [address]-87 250 MG Orally Once a day Jul 25, 2016 Jul 30, 2016 2 tablets on the first day, then 1 tablet daily for 4 days Amoxicillin [facility] [address]-04 400 MG/5ML Orally 3 times a day Jul 15, 2016 Jul 25, 2016 6 ml Ativan [facility] [address]-43 0.5 MG Orally 2 times a day Jul 15, 2016 1 tablet as needed Vyvanse [facility] [address]-34 60 mg Orally Once a day Jul 15, 2016 1 capsule in the morning Benzonatate [facility] [address]-76 not defined Fluconazole [facility] [address]-20 not defined ProAir HFA [facility] [address]-11 108 (90 Base) MCG/ACT Inhalation every 4 hrs Jul 25, 2016 2 puffs as needed Procedures Procedure Coding System Code Date Office Visit, Est Pt., Level 3 CPT-4 74819 Jul 25, 2016 MEASURE BLOOD OXYGEN LEVEL CPT-4 39502 Jul 25, 2016 Vital Signs Date/Time: Jul 25, 2016 Cardiac Monitoring Heart Rate 109 bpm Weight 117.6 lbs Height 63 in BMI 20.83 Index Oximetry 98 % Blood Pressure Diastolic 78 mmHg Blood Pressure Systolic 108 mmHg Results No Known Results Summary Purpose eClinicalWorks Submission
--- OUTSIDE RECORDS SUMMARY | 2017-02-23 06:17 | XMS REPORT ---
Author Author KELLY CABAN Organization eClinicalWorks Address Unknown Phone Unavailable Care Team Providers Care Pre Coder Name Role Phone KELLY CABAN CP Unavailable Allergies No Known Allergies Problems Problem Type Condition Code Onset Dates Condition Status Problem Anxiety associated with depression F41.8 Active Problem Depressive disorder F32.9 Active Problem Evaluation for contraceptive injection Z30.013 Active Problem Generalized anxiety disorder F41.1 Active Medications No Known Medications Results No Known Results Summary Purpose eClinicalWorks Submission
--- OUTSIDE RECORDS SUMMARY | 2017-02-23 06:17 | XMS REPORT ---
Author Author KELLY CABAN [facility] Address [address] [place] [address] Care Team Providers Care Glass Cut Off Tender Name Role Phone KELLY CABAN Unavailable PROBLEMS Type Condition ICD9-CM Code CNN36-AU Code Onset Dates Condition Status SNOMED Code Problem Evaluation for contraceptive injection Z30.013 Active 16902952 Problem Anxiety associated with depression F41.8 Active 732350713 Problem Depressive disorder F32.9 Active 41136532 Problem Generalized anxiety disorder F41.1 Active 826789671 ALLERGIES Unknown Allergies SOCIAL HISTORY No smoking Hx information available PLAN OF CARE VITAL SIGNS MEDICATIONS Unknown Medications RESULTS No Results PROCEDURES No Known procedures IMMUNIZATIONS No Known Immunizations
--- OUTSIDE RECORDS SUMMARY | 2017-02-23 06:17 | XMS REPORT ---
Author Author ANTONINO REYES Organization [facility] Address [address] [place] [address] Care Team Providers Care Parts Clerk Plant Maintenance Name Role Phone ANTONINO REYES Unavailable PROBLEMS Type Condition ICD9-CM Code BDK07-CH Code Onset Dates Condition Status SNOMED Code Assessment Finger joint swelling, unspecified laterality M25.449 Jun, Active 841451471 Problem Evaluation for contraceptive injection Z30.013 Active 31599879 Problem Anxiety associated with depression F41.8 Active 880208021 Assessment Other chronic pain G89.29 07 Jun, 2016 Active 72471535 Assessment Pain in unspecified hip M25.559 Jun, Active 22022035 Problem Depressive disorder F32.9 Active 00886453 Problem Generalized anxiety disorder F41.1 Active 541931540 ALLERGIES Substance Reaction Event Type Date Status N.K.D.A. Unknown Non Drug Allergy Jun, Unknown SOCIAL HISTORY No smoking Hx information available PLAN OF CARE VITAL SIGNS Height 63 in 2016-06-19 Weight 119.0 lbs 2016-06-19 Heart Rate 80 bpm 2016-06-19 Respiratory Rate 18 2016-06-19 BMI 21.08 kg/m2 2016-06-19 Blood pressure systolic 100 mmHg 2016-06-19 Blood pressure diastolic 68 mmHg 2016-06-19 MEDICATIONS Medication Instructions Dosage Frequency Start Date End Date Duration Status Vyvanse 50 mg Orally Once a day 1 capsule in the morning 24h February, Active BusPIRone HCl 10 MG Orally 2 times a day 1 tablet 12h Nov, Active RESULTS Name Result Date Reference Range RA (RHEUMATOID) FACTOR 2016-06-19 RA Latex Turbid. <10.0 0.0-13.9 PROCEDURES Procedure Date Ordered Related Diagnosis Body Site LAB NOT BILLED BY [facility] Jun 19, 2016 Office Visit, Est Pt., Level 3 Jun 19, 2016 VENIPUNCT, ROUTINE* Jun 19, 2016 IMMUNIZATIONS No Known Immunizations
--- OUTSIDE RECORDS SUMMARY | 2017-02-23 06:18 | XMS REPORT ---
Author Author KELLY CABAN Organization eClinicalWorks Address Unknown Phone Unavailable Care Team Providers Care Local Sales Associate Name Role Phone KELLY CABAN CP Unavailable [...] Start Date End Date Status Dosage Ativan [facility] [address]-91 0.5 MG Orally 2 times a day Jul 15, 2016 1 tablet as needed Results No Known Results Summary Purpose eClinicalWorks Submission
--- OUTSIDE RECORDS SUMMARY | 2017-02-23 06:18 | XMS REPORT ---
Author Author KELLY CABAN Organization eClinicalWorks Address Unknown Phone Unavailable Care Team Providers Care Commissioner Public Works Name Role Phone KELLY CABAN CP Unavailable Allergies No Known Allergies Problems Problem Type Condition Code Onset Dates Condition Status Problem Anxiety associated with depression F41.8 Active Problem Depressive disorder F32.9 Active Problem Evaluation for contraceptive injection Z30.013 Active Problem Generalized anxiety disorder F41.1 Active Assessment Attention deficit hyperactivity disorder (ADHD), predominantly inattentive type F90.0 Active Medications Medication Code System Code Instructions Start Date End Date Status Dosage Vyvanse [facility] [address]-43 70 MG Orally Once a day Aug 23, 2015 1 capsule in the morning Results No Known Results Summary Purpose eClinicalWorks Submission
--- OUTSIDE RECORDS SUMMARY | 2017-02-23 06:18 | XMS REPORT ---
Author Author KELLY CABAN Organization eClinicalWorks Address Unknown Phone Unavailable Care Team Providers Care Piling Cutter Name Role Phone KELLY CABAN CP Unavailable [...]
--- OUTSIDE RECORDS SUMMARY | 2017-02-23 06:18 | XMS REPORT ---
Author Author KELLY CABAN Organization eClinicalWorks Address Unknown Phone Unavailable Care Team Providers Care Sales Clerk Food Name Role Phone KELLY CABAN CP Unavailable [...] Start Date End Date Status Dosage Vyvanse [facility] [address]-02 70 MG Orally Once a day Aug 23, 2015 1 capsule in the morning Results No Known Results Summary Purpose eClinicalWorks Submission
== END 2017-01-19 17:44 | disposition left against medical advice (07) ==
LOC: EDUNIT# 17:20 → ER 17:22
DX: R22.2 Localized swelling, mass and lump, trunk (principal); Z53.21 Procedure and treatment not carried out due to patient leaving prior to being seen by health care provider

== ENCOUNTER 2017-01-20 11:11 | Emergency (ER) | payer SELFPAY ==
[~2017-01-20] VITALS: Ht 160 cm; Wt 61.5 kg
--- NOTE | 2017-01-20 12:24 | ED GU-Female ---
General Chief Complaint: -Female Stated Complaint: VAG/PUBIC AREA INJURY Nursing Triage Note: PT REPORTS FALLING THROUGH HOLE IN PORCH STEPS, CAUSING HER TO STRADLE THE STEP. SHE IS C/O GENITAL PAIN. SHE DENIES ANY BLEEDING OR ANY OTHER INJURY. Nursing Sepsis Screen: No Definite Risk Source: patient Exam Limitations: no limitations History of Present Illness Time seen by provider: 12:24 Initial Comments 21-year-old female patient presents to the emergency Department with reports of general pain after falling through a hole and straddling the porch. Patient was checked in to the emergency department yesterday, but left approximate 20 minutes after checking in. Patient was not in the waiting room when nursing staff went to get patient. Patient states yesterday she left because of anxiety. Reports yesterday the genital area was swollen, but today is "black". Denies hematuria, bleeding, vaginal bleeding, vaginal discharge, dysuria, frequency, hematuria. Patient does request vaginal cultures. Performed due to vaginal discharge. States this was occurring prior to the injury yesterday. Timing/Duration: yesterday, getting worse Severity/Quality: throbbing Location: other (perineum and labia) Radiation: none Activities at Onset: other (step through a hole in the porch) Prior Genitourinary Problems: none Sexual [place] History: less than 2 months ago, single partner Modifying Factors: Worsens With Movement, Worsens With Palpation Allergies and Home Medications Allergies Coded Allergies: No Known Drug Allergies (Unverified , 07/21/16) Home Medications Azithromycin 500 Mg Tablet, 1,000 MG PO ONCE, #2 Ref 0 Prescribed by: SHAGUFTA WILKS on 01/20/17 1358 Benzonatate 100 Mg Capsule, 1-2 CAP PO Q8H PRN for COUGH, #14 Ref 1 Prescribed by: SHAGUFTA WILKS on 07/21/162126 Cephalexin 500 Mg Capsule, 500 MG PO TID, #21 Ref 0 Prescribed by: SHAGUFTA WILKS on 07/21/162126 Fluconazole 100 Mg Tablet, 100 MG PO DAILY, #10 Ref 0 Prescribed by: SHAGUFTA WILKS on 07/21/162126 Hydroxyzine Pamoate 25 Mg Capsule, 25 MG PO Q6H PRN for ANXIETY, #1 Ref 0 Prescribed by: SHAGUFTA WILKS on 11/03/16 1304 Lisdexamfetamine Dimesylate 10 Mg Capsule, Unknown Dose PO, (Reported) Metronidazole 500 Mg Tablet, 500 MG PO BID, #14 Ref 0 Prescribed by: SHAGUFTA WILKS on 01/20/17 1358 Naproxen Sodium 550 Mg Tablet, 550 MG PO BID PRN for PAIN, #20 Ref 0 Prescribed by: SHAGUFTA WILKS on 01/20/17 1358 Constitutional: no symptoms reported Respiratory: no symptoms reported Cardiovascular: no symptoms reported Gastrointestinal: No abdominal pain, No constipation, No diarrhea, No melena, No nausea, No vomiting Genitourinary: see HPI, denies burning, discharge, denies dysuria, denies frequency, denies flank pain, denies hematuria, pain : No Musculoskeletal: No back pain, No joint pain, No neck pain Skin: see HPI, change in color Psychiatric/Neurological: Denies Headache, Denies Numbness, Denies Paresthesia , Denies Tingling, Denies Weakness All Other Systemes Reviewed Negative Unless Noted: Yes (Negative excepted noted.) Past Shvgcyl-Iqkzdy-Bmumig Hx Patient Social History Alcohol Use: Occasionally Uses Recreational Drug Use: Yes Drug of Choice: Marijuana Smoking Status: Current Everyday Smoker Type Used: Cigarettes 2nd Hand Smoke Exposure: No Recent Foreign Travel: No Contact w/Someone Who Travel: No Recent Infectious Disease Expo: No Recent Hopitalizations: No Immunizations Up To Date Tetanus Booster (TDap): Less than 5yrs Date of Influenza Vaccine: Jul 24, 2014 Seasonal Allergies Seasonal Allergies: No Surgeries HX Surgeries: No Respiratory Hx Respiratory Disorders: No Cardiovascular Hx Cardiac Disorders: No Neurological Hx Neurological Disorders: No Reproductive System Hx Reproductive Disorders: No Female Reproductive Disorders: Denies Genitourinary Hx Genitourinary Disorders: No Gastrointestinal Hx Gastrointestinal Disorders: No Musculoskeletal Hx Musculoskeletal Disorders: No Endocrine Hx Endocrine Disorders: Yes (hypoglycemia) HEENT HX ENT Disorders: No Cancer Hx Cancer: No Psychosocial Hx Psychiatric Problems: Yes Behavioral Health Disorders: ADD/ADHD, Anxiety, Depression Integumentary HX Skin/Integumentary Disorder: No Blood Transfusions Hx Blood Disorders: No Adverse Reaction to a Blood Tr: No Reviewed Nursing Assessment Reviewed/Agree w Nursing PMH: Yes Family Medical History Significant Family History: No Pertinent Family Hx Family Medial History: Patient reports no known family medical history. Physical Exam Vital Signs Vital Sign - Last 12Hours 01/20/17 11:25 Temp 97.2 Pulse 89 Resp 16 B/P (MAP) 107/81 Pulse Ox 98 O2 Delivery Room Air Capillary Refill : Less Than 3 Seconds General Appearance: WD/WN, no apparent distress Cardiovascular: normal peripheral pulses, regular rate, rhythm, no murmur Respiratory: lungs clear, normal breath sounds, no respiratory distress Gastrointestinal: non tender, soft, no organomegaly, No distended Pelvic: normal adnexa, no cerv. motion tender, no masses, discharge (off white dsch), No lesions, No mass, other (ecchymosis and swelling of the rt labia. no evidence of laceration or abrasions. ) Back: normal inspection, no vertebral tenderness Extremities: normal range of motion, non-tender, normal inspection, normal capillary refill, pelvis stable Neurologic/Psychiatric: no motor/sensory deficits, alert, normal mood/affect, oriented x 3 Skin: warm/dry, No cyanosis, No cool, ecchymosis (labia and perineum), No mottled, No pallor Progress/Results/Core Measures Results/Orders Lab Results Laboratory Tests Test 01/20/17 13:29 Range/Units Micro Results Microbiology 01/20/17 Genital Culture, Resulted Pending 01/20/17 Wet Prep - Final, Resulted My Orders Orders - SHAGUFTA WILKS Pelvis (01/20/17 12:02) Ketorolac Injection (Toradol Injection) (01/20/17 12:31) Wet Prep (01/20/17 12:31) Neisseria Gonorrhea Dna (01/20/17 12:31) Chlamydia Dna (01/20/17 12:31) Genital Culture (01/20/17 12:31) Ceftriaxone Injection (Rocephin Injectio (01/20/17 14:00) Lidocaine 1% Injection (Xylocaine 1% Inj (01/20/17 14:00) Medications Given in ED Current Medications Medications Dose Ordered Sig/Sachin Route Start Time Stop Time Status Last Admin Dose Admin Ceftriaxone Sodium 500 mg ONCE ONCE IM 01/20/17 14:00 01/20/17 14:01 DC 01/20/17 14:05 500 MG Lidocaine HCl 1 ml ONCE ONCE INJ 01/20/17 14:00 01/20/17 14:01 DC 01/20/17 14:06 1 ML Vital Signs/I&O Blood Pressure Mean: 90 Diagnostic Imaging Diagonstic Imaging: Xray Plain Films/CT/US/NM/MRI: pelvis Comments INDICATION: Fall with diffuse pelvic pain. DISCUSSION: Single AP view of the pelvis was obtained, no comparison. No acute fracture, dislocation, or other osseous abnormality identified. No significant degenerative disease. Alignment is anatomic. Soft tissues are unremarkable. IMPRESSION: 1. Negative pelvis. Dictated on workstation # [id number] Reviewed: Reviewed by Me (radiology report reviewed by me) Departure Communication Progress Notes Diagnostic findings and laboratory findings discussed with the plan for Rocephin IM 1 dose prior to discharge. Patient discharged with metronidazole and azithromycin prescriptions. Patient was given a prescription for Anaprox for pain. Impression Impression: Primary Impression: Bacterial vaginosis Additional Impression: Contusion of labia majora Qualified Codes: S30.23XA - Contusion of vagina and vulva, initial encounter Disposition: HOME, SELF-CARE Condition: Improved Departure-Patient Inst. Decision time for Depature: 13:56 Referrals: [facility] (PCP/Family) Primary Care Physician Patient Instructions: Bacterial Vaginosis (DC), Contusion (DC) Add. Discharge Instructions: All discharge instructions reviewed with patient and/or family. Voiced understanding. Medications as instructed. Tylenol Extra Strength over-the- counter as directed for pain. Ice pack for 20 minute intervals as needed for pain and swelling. Activity as tolerated. No intercourse until released by your primary care physician. Follow-up with primary care physician for recheck and for final vaginal culture results. Return to the emergency department for worsened symptoms or any other concerns. Scripts Azithromycin (Azithromycin) 500 Mg Tablet 1000 MG PO ONCE, #2 TAB 0 Refills Prov: SHAGUFTA WILKS 01/20/17 Metronidazole (Metronidazole) 500 Mg Tablet 500 MG PO BID, #14 TAB 0 Refills Prov: SHAGUFTA WILKS 01/20/17 Naproxen Sodium (Anaprox Ds) 550 Mg Tablet 550 MG PO BID Y for PAIN, #20 TAB 0 Refills Prov: SHAGUFTA WILKS 01/20/17 Work/School Note: Work Release Form Date Seen in the Emergency Department: Jan 20, 2017 Return to Work: Jan 20, 2017 Restrictions: No Restrictions SHAGUFTA WILKS Jan 20, 2017 12:24
[2017-01-20] MEDS ORDERED: KETOROLAC 60 MG/2 ML VIAL IM STA (12:31)
--- NOTE | 2017-01-20 12:55 | Diagnostic Imaging Report ---
INDICATION: Fall with diffuse pelvic pain. DISCUSSION: Single AP view of the pelvis was obtained, no comparison. No acute fracture, dislocation, or other osseous abnormality identified. No significant degenerative disease. Alignment is anatomic. Soft tissues are unremarkable. IMPRESSION: 1. Negative pelvis. Dictated by: Dictated on workstation # [id number]
[2017-01-20] MEDS ORDERED: AZIT500T5 PO (13:58)
[2017-01-20] MEDS ORDERED: METR500T21 PO (13:58)
[2017-01-20] MEDS ORDERED: NAPR550T PO (13:58)
[2017-01-20] MEDS ORDERED: LIDOCAINE 1% INJ 20 ML (XYLOCAINE) VIAL INJ ONE (14:00)
[2017-01-20] MEDS ORDERED: cefTRIAXone 500 MG (ROCEPHIN) VIAL IM ONE (14:00)
[2017-01-20 14:16] VITALS: BP 112/74
== END 2017-01-20 14:16 | disposition home or self-care (01) ==
LOC: EDUNIT# 11:11 → ER 11:14
DX: S30.23XA Contusion of vagina and vulva, initial encounter (principal); N76.0 Acute vaginitis; W18.30XA Fall on same level, unspecified, initial encounter; Y92.018 Other place in single-family (private) house as the place of occurrence of the external cause; Y99.8 Other external cause status
CPT/HCPCS: 36415; 72170; 87070; 87210; 87491; 87591; 96372; 99284

== ENCOUNTER → 2017-10-10 | Outpatient (CLI) | payer MEDICAID ==
[~2017-10-10] MED LIST changes: +AZIT500T5 PO; +METR500T21 PO; +NAPR-1070 PO
--- NOTE | 2017-10-10 14:33 | Diagnostic Imaging Report ---
INDICATION: Anatomic survey. TECHNIQUE: Multiple real-time grayscale images were obtained over the gravid uterus. COMPARISON: None. FINDINGS: The single live intrauterine gestation is in the breech position. Amniotic fluid is within normal limits, with a vertical pocket seen measuring 6.6 cm. The placenta is posterior fundal, with a grade 2 appearance. The maternal adnexa is not seen due to the gravid uterus. The kidneys, bladder, stomach, intracranial ventricles, cisterna magna, four-chamber heart, three-vessel cord, and spine are seen. The cord insertion is not well seen due to the lie. Biometrical measurements are as follows: Biparietal 6.23 cm, age 25 weeks 2 days. Head circumference 23.29 cm, age 25 weeks 3 days. Abdominal circumference 20.18 cm, age 24 weeks 6 days. Femur length 4.82 cm, age 26 weeks 2 days. Sonographic estimate age: 25 weeks 4 days. Sonographic estimated date of delivery: 01-19-18. Estimated Weight: 802 gm (+/- 117 gm). LMP percentile: 26%. heart rate: 167 beats per minute. number: 1 of 1. IMPRESSION: 1. Single live intrauterine gestation measuring 25 weeks and 4 days, which is concordant with the clinical dates. heart rate is 167 BPM. 2. Anatomic survey as described above. The cord insertion is not well seen. Dictated by: Dictated on workstation # [id number]
== END ==
LOC: RAD 10:25
PROVIDERS: ATTEND Family Medicine
DX: Z36.89 Encounter for other specified antenatal screening (principal); Z3A.25 25 weeks gestation of pregnancy
CPT/HCPCS: 76805

== ENCOUNTER → 2018-01-13 | Outpatient (CLI) | payer MEDICAID ==
--- NOTE | 2018-01-13 17:28 | Diagnostic Imaging Report ---
EXAM: US BIOPHYSICAL PROFILE 87415. INDICATION: O09.33 LIMITED CARE IN 3RD TRI. COMPARISON: Obstetric ultrasound 10/10/2017. FINDINGS: Single live intrauterine in the cephalic presentation. SATHISH 16 cm. heart rate 146 BPM. Posterior placenta, grade 3. Biophysical profile score of 8/8. IMPRESSION: 1. Single live intrauterine in the cephalic presentation, heart rate 146 BPM. 2. Biophysical profile score of 8/8. Dictated by: Dictated on workstation # [id number]
== END ==
LOC: RAD 16:22
PROVIDERS: ATTEND Family Medicine
DX: O09.33 Supervision of pregnancy with insufficient antenatal care, third trimester (principal); Z3A.00 Weeks of gestation of pregnancy not specified
CPT/HCPCS: 76819

== ENCOUNTER 2018-01-19 07:00 | Inpatient (IN) | payer MEDICAID ==
[~2018-01-19] VITALS: Ht 157.5 cm; Wt 63.6 kg
[2018-01-19] VITALS (33 sets, daily range): BP systolic 108–144; BP diastolic 57–96
[2018-01-19] MEDS ORDERED: OXYTOCIN/NORMAL SALINE 500 ML IV SCH ×2 (08:41→14:21)
[2018-01-19] MEDS ORDERED: D5 LR IV SOLUTION 1,000 ML IV SCH (08:41)
[2018-01-19] MEDS ORDERED: AMPICILLIN 2000 MG INJECTION (IM/IV) ONE (08:53)
--- NOTE | 2018-01-19 08:57 | History & Physical-OB ---
OB - Chief Complaint & HPI Date/Time Date of Admission: Date of Admission: Jan 19, 2018 at 8:00 am Time Seen by Provider: 08:30 Chief Complaint/History OB-Reason for Admission/Chief: Induction of Labor Hx : 6 Hx Para: 1132 Expected Date of Delivery: Jan 18, 2018 Gestational Age in Weeks: 40 Gestational Age in Days: 1 Indication for induction: post dates Admission Nurse Assessment Rev: Yes History of Labs O+, antibody neg, HIV/HepB/RPR NR, RI. GC neg. Chlamydia positive at intake, treated and NENITA negative. GBS pos. Did not complete glucola. Allergies and Home Medications Allergies Coded Allergies: No Known Drug Allergies (Unverified , 07/21/16) Patient Home Medication List Home Medication List Reviewed: Yes OB - History Hx of Present Care: No (Limited, had 3 visits) Ultrasounds: Normal mid trimester US (cord insertion not well seen) Obstetrical Complications: Other (limited care, history of substance use) Medical Complications: None Information Induced Hypertension: No Maternal Gestational Diabetes: No Hemorrhage: No Obstetrical History Hx : 6 Hx Para: 2 Hx # Term Pregnancies: 1 Hx # Pregnancies: 1 Number of Living Children: 2 Hx Termination: No Hx Total # of Abortions (Spona: 3 Hx Multiple Gestation: No Hx Ectopic : No Hx Stillbirth: No Hx Complication: Yes ( delivery) Hx Induced Hypertens: No Hx Maternal Gestational Diabet: No Hx Hemorrhage: No Delivery History Hx Dystocia: No Hx Forceps Assisted Delivery: No Hx Vacuum Extraction Assisted: No Hx Placenta Abnormality: No Hx Distress: No Hx Large For Gestational Age I: No Hx Small for Gestational Age I: No Hx Section: No Hx Vaginal Delivery Post C-Sec: No Hx Blood Disorders: No Adverse Rxn to Tranfusion: No Patient Past Medical History PMHx: Anxiety Methamphetamine abuse PSurgHx:None Social History/Family History HIV/AIDS: No Recent Infectious Disease Expo: No Sexually Transmitted Disease: Yes (chlamydia) Alcohol Use: Denies Use Recreational Drug Use: Yes (last use reported early 2016) Smoking Cessation: Current every day smoker 2nd Hand Smoke Exposure: No Immunizations Hepatitis B: No Tetanus Booster (TDap): Less than 5yrs Date of Influenza Vaccine: Jul 24, 2014 Rubella: immune RPR/VDRL: Negative GBS Status: Positive HBsAG: Negative OB - Admission Exam Physical Exam HEENT: NCAT Abdomen: Non tender Extremities: Normal Cervical Dilatation: 5cm Effacement: 50% Station: -1 Membranes: Intact Heart Rate: 140's Decelerations: No Decelerations Short Term Variability: Present Detention Variability: Average (6-25) Contractions on Admission: None Rees Scoring Tool (Modified) Dilation (cm): >5cm (3) Effacement (%): 51-79% (2) Descent/Station: -1,0 (2) Cervix Consistency: Soft (2) Cervix Position: Posterior (0) Add 1 point for: Each previous vaginal delivery (1) (2) Subtract 1 point for: Postdate (-1) Rees Score: 10 OB - Assessment/Plan/Diagnosis Assessment Assessment: group B positive strep, induction of labor, other (limited care) Admission Dx Induction of labor TIUP at 40 weeks Admission Status: Inpatient Order (span 2 midnights) Reason for Inpatient Admission: Labor and delivery, course Plan Plan: Induction Induction Method: per Pitocin Protocol Other Plan Ampicillin for GBS positive status Check Hep C antibody due to history of IV drug use Copy Copies To 1: MIGUEL MIR MD, BETHANY N MD Jan 19, 2018 8:56 am
[2018-01-19 09:00] LABS: BASOPHILS % (AUTO) 0 % (0-10); EOSINOPHILS # (AUTO) 0.2 10^3/uL (0.0-0.3); EOSINOPHILS % (AUTO) 1 % (0-10); HEMATOCRIT 33 % (35-52); LYMPHOCYTES # (AUTO) 1.9 X 10^3 (1.0-4.0); LYMPHOCYTES % (AUTO) 18 % (12-44); MEAN CORPUSCULAR HEMOGLOBIN 27 PG (25-34); MEAN CORPUSCULAR HGB CONC 33 G/DL (32-36); MEAN CORPUSCULAR VOLUME 82 FL (80-99); MEAN PLATELET VOLUME 11.3 FL (7.4-10.4); MONOCYTES # (AUTO) 1.1 X 10^3 (0.0-1.0); MONOCYTES % (AUTO) 10 % (0-12); NEUTROPHILS # (AUTO) 7.9 X 10^3 (1.8-7.8); NEUTROPHILS % (AUTO) 71 % (42-75); PLATELET COUNT 267 10^3/uL (130-400); RED BLOOD COUNT 4.04 10^6/uL (4.35-5.85); RED CELL DISTRIBUTION WIDTH 14.5 % (10.0-14.5); WHITE BLOOD COUNT 11.1 10^3/uL (4.3-11.0)
[2018-01-19] MEDS: AMPICILLIN INJECTION 1,000 MG in NS (IVPB) 100 ML IV SCH ×2 (09:11→13:30)
[2018-01-19 09:12] LABS: AMPHETAMINE SCREEN, URINE POSITIVE (NEGATIVE); BARBITURATE SCREEN URINE NEGATIVE (NEGATIVE); BENZODIAZEPINES SCREEN URINE NEGATIVE (NEGATIVE); CANNABINOID SCREEN, URINE POSITIVE (NEGATIVE); COCAINE SCREEN URINE NEGATIVE (NEGATIVE); METHADONE STAT NEGATIVE (NEGATIVE); METHAMPHETAMINE SCREEN URINE S NEGATIVE (NEGATIVE); OPIATE SCREEN URINE NEGATIVE (NEGATIVE); OXYCODONE STAT NEGATIVE (NEGATIVE); PROPOXYPHENE STAT NEGATIVE (NEGATIVE); TRICYCLIC ANTIDEPRESSANTS SCRE NEGATIVE (NEGATIVE)
[2018-01-19] MEDS ORDERED: hydrOXYzine (VISTARIL) 25 MG CAP PO PRN (09:15)
[2018-01-19] MEDS ORDERED: fentaNYL INJECTION 100 MCG/2 ML AMP ONE (09:51)
[2018-01-19] MEDS ORDERED: LIDOCAINE PF 2% 5 ML (XYLOCAINE) VIAL ONE (09:51)
[2018-01-19] MEDS ORDERED: BUPIVACAINE 0.25% 30 ML (SENSORCAINE) VIAL ONE (09:51)
[2018-01-19] MEDS ORDERED: SUFENTA 0.6MCG/ML BUPIVA 0.125 100 ML ONE (09:59)
[2018-01-19] MEDS ORDERED: LACTATED RINGERS 1,000 ML IV ONE (10:25)
[2018-01-19] MEDS ORDERED: NALOXONE 0.4 MG/ML 1 ML (NARCAN) VIAL IV PRN (10:30)
[2018-01-19] MEDS ORDERED: CATHETER FLUSH 10 ML SYR IV PRN (10:30)
[2018-01-19] MEDS ORDERED: ONDANSETRON 4 MG/2 ML (SDV) Z0FRAN IV PRN (10:30)
[2018-01-19] MEDS ORDERED: EPIDURAL (SUFENTA 0.6MCG/ML BUPIVA 0.125%) 100 ML BAG EPI SCH (10:30)
[2018-01-19] MEDS ORDERED: diphenhydrAMINE 50 MG/ML INJ (BENADRYL) IV PRN (10:30)
--- NOTE | 2018-01-19 12:58 | Labor Progress Note ---
Labor Progress Note Labor Progress Note Date Seen by Provider: Jan 19, 2018 Time Seen by Provider: 12:45 Subjective: Pt denies complaints. Epidural is working well. Objective: Cervical exam: 5.5/80/-1 Consistency: soft Position: anterior Presentation: vertex heart tones: 135 beats per minute, moderate variability, early decel noted with first contraction after AROM Tocometer: 3 ctx/10 minutes Assessment/Plan: Han Weir is a 22 /Para 6 / 2,Gestational Age (wks)40+1 here for IOL CEFM/TOCO AROM done with clear fluid Continue pitocin Anesthesia: epidural Anticipate vaginal delivery. Vitals - Labs Vital Signs - I&O Vital Signs 01/19/18 01/19/18 09:10 11:05 Temp 94.5 Pulse 94 Resp 18 B/P (MAP) 116/71 (86) Pulse Ox 100 O2 Delivery Room Air Labs Laboratory Tests 01/19/18 08:20: Urine Opiates Screen NEGATIVE, Urine Oxycodone Screen NEGATIVE, Urine Methadone Screen NEGATIVE, Urine Propoxyphene Screen NEGATIVE, Urine Barbiturates Screen NEGATIVE, Ur Tricyclic Antidepressants Screen NEGATIVE, Urine Phencyclidine Screen NEGATIVE, Urine Amphetamines Screen POSITIVEH, Urine Methamphetamines Screen NEGATIVE, Urine Benzodiazepines Screen NEGATIVE, Urine Cocaine Screen NEGATIVE, Urine Cannabinoids Screen POSITIVEH 01/19/18 08:30: White Blood Count 11.1H, Red Blood Count 4.04L, Hemoglobin 11.0L, Hematocrit 33L , Mean Corpuscular Volume 82, Mean Corpuscular Hemoglobin 27, Mean Corpuscular Hemoglobin Concent 33, Red Cell Distribution Width 14.5, Platelet Count 267, Mean Platelet Volume 11.3H, Neutrophils (%) (Auto) 71, Lymphocytes (%) (Auto) 18 , Monocytes (%) (Auto) 10, Eosinophils (%) (Auto) 1, Basophils (%) (Auto) 0, Neutrophils # (Auto) 7.9H, Lymphocytes # (Auto) 1.9, Monocytes # (Auto) 1.1H, Eosinophils # (Auto) 0.2, Basophils # (Auto) 0.0 MIGUEL MIR MD Jan 19, 2018 12:58 pm
[2018-01-19] MEDS ORDERED: CATHETER FLUSH 10 ML SYR IV SCH ×2 (14:00→22:00)
[2018-01-19] MEDS ORDERED: AMPICILLIN INJECTION 2,000 MG in NS (IVPB) 100 ML IV SCH (14:04)
--- NOTE | 2018-01-19 14:20 | OB Labor & Delivery Record ---
Vag Delivery Note Vag Delivery Note Date of Delivery: 01/19/18 Preoperative Diagnosis: Han Weir is a 22 yo /Para 6 / 2, Gestational Age (wks)[id number] Postoperative Diagnosis: Same Surgeon: MIGUEL MIR Anesthesia: Epidural Delivery Type: spontaneous vaginal delivery Findings: Viable female infant, apgars 8/9, weight 7#6 Lacerations: bilateral periurethral abrasions Intact placenta with 3 vessel cord. No nuchal cord, body cord or shoulder dystocia Estimated Blood Loss: 350 ml Complications: None Condition: Stable Description of Procedure: The patient is a G6 now P2133 who presented at 40w1d for IOL. She was admitted and informed consent was obtained. Her labor course was unremarkable. She progressed to complete dilatation and began to push. She was then set up for delivery. The infant's head was delivered atraumatically in the LU position. The shoulders and remainder of the infant's body were then delivered without difficulty. Upon delivery, the head was held below the level of the perineum and the mouth and nares were bulb suctioned. The cord was doubly clamped and cut and the was handed off to the pediatric staff. An intact placenta with 3-vessel cord delivered via Kumar and there was found to be minimal bleeding.~ Vigorous fundal massage was performed and the fundus was found to be firm. IV oxytocin was given. Examination of the vagina and perineum revealed bilateral periurethral abrasions that were hemostatic. Following the repair, sponge, instrument and needle counts were correct. Mom and baby were both in stable condition in the labor suite. Vitals - Labs Vital Signs - I&O Vital Signs 01/19/18 01/19/18 09:10 11:05 Temp 94.5 Pulse 94 Resp 18 B/P (MAP) 116/71 (86) Pulse Ox 100 O2 Delivery Room Air Labs Laboratory Tests 01/19/18 08:20: Urine Opiates Screen NEGATIVE, Urine Oxycodone Screen NEGATIVE, Urine Methadone Screen NEGATIVE, Urine Propoxyphene Screen NEGATIVE, Urine Barbiturates Screen NEGATIVE, Ur Tricyclic Antidepressants Screen NEGATIVE, Urine Phencyclidine Screen NEGATIVE, Urine Amphetamines Screen POSITIVEH, Urine Methamphetamines Screen NEGATIVE, Urine Benzodiazepines Screen NEGATIVE, Urine Cocaine Screen NEGATIVE, Urine Cannabinoids Screen POSITIVEH 01/19/18 08:30: White Blood Count 11.1H, Red Blood Count 4.04L, Hemoglobin 11.0L, Hematocrit 33L , Mean Corpuscular Volume 82, Mean Corpuscular Hemoglobin 27, Mean Corpuscular Hemoglobin Concent 33, Red Cell Distribution Width 14.5, Platelet Count 267, Mean Platelet Volume 11.3H, Neutrophils (%) (Auto) 71, Lymphocytes (%) (Auto) 18 , Monocytes (%) (Auto) 10, Eosinophils (%) (Auto) 1, Basophils (%) (Auto) 0, Neutrophils # (Auto) 7.9H, Lymphocytes # (Auto) 1.9, Monocytes # (Auto) 1.1H, Eosinophils # (Auto) 0.2, Basophils # (Auto) 0.0 MIGUEL MIR MD Jan 19, 2018 2:20 pm
[2018-01-19] MEDS ORDERED: TETANUS,DIPTH,PERTUSS P/F (BOOSTRIX) 0.5 ML VIAL IM ONE (14:30)
[2018-01-19] MEDS ORDERED: BENZOCAINE/MENTHOL (DERMOPLAST) 56 ML CAN TP PRN (14:30)
[2018-01-19] MEDS ORDERED: WITCH HAZEL(TUCKS) 40 EA JAR TOP PRN (14:30)
[2018-01-19] MEDS: IBUPROFEN 600 MG (MOTRIN) TAB PO SCH (19:02)
[2018-01-19] MEDS ORDERED: ACETAMINOPHEN 500 MG TAB (TYLENOL) ONE (22:44)
[2018-01-19] MEDS: ACETAMINOPHEN 500 MG TAB (TYLENOL) PO PRN (22:51)
[2018-01-20 00:21] VITALS: BP 107/62
[2018-01-20] MEDS: IBUPROFEN 600 MG (MOTRIN) TAB PO SCH ×4 (00:21→20:36)
[2018-01-20 04:57] VITALS: BP 104/63
[2018-01-20] MEDS: ACETAMINOPHEN 500 MG TAB (TYLENOL) PO PRN ×3 (04:57→20:10)
[2018-01-20 05:41] LABS: BASOPHILS % (AUTO) 0 % (0-10); EOSINOPHILS # (AUTO) 0.2 10^3/uL (0.0-0.3); EOSINOPHILS % (AUTO) 2 % (0-10); HEMATOCRIT 28 % (35-52); HEMOGLOBIN 9.2 G/DL (11.5-16.0); LYMPHOCYTES # (AUTO) 2.4 X 10^3 (1.0-4.0); LYMPHOCYTES % (AUTO) 15 % (12-44); MEAN CORPUSCULAR HEMOGLOBIN 27 PG (25-34); MEAN CORPUSCULAR HGB CONC 33 G/DL (32-36); MEAN CORPUSCULAR VOLUME 82 FL (80-99); MEAN PLATELET VOLUME 10.7 FL (7.4-10.4); MONOCYTES # (AUTO) 1.2 X 10^3 (0.0-1.0); MONOCYTES % (AUTO) 7 % (0-12); NEUTROPHILS # (AUTO) 12.3 X 10^3 (1.8-7.8); NEUTROPHILS % (AUTO) 76 % (42-75); PLATELET COUNT 251 10^3/uL (130-400); RED BLOOD COUNT 3.42 10^6/uL (4.35-5.85); RED CELL DISTRIBUTION WIDTH 14.5 % (10.0-14.5); WHITE BLOOD COUNT 16.2 10^3/uL (4.3-11.0)
[2018-01-20 06:44] LABS: HEPATITIS C ANTIBODY C Non-Reactive (Non-Reactive)
--- NOTE | 2018-01-20 07:01 | Anesthesia-Regional Post-Op ---
Regional Patient Condition Mental Status: Alert, Oriented x3 Circulation: Same as Pre-Op Headache: Absent Sensation: Full Recovery Motor Block: Absent Post Op Complications Complications None Follow Up Care/Instructions Patient Instructions None needed. Anesthesia/Patient Condition Patient is doing well, no complaints, stable vital signs, no apparent adverse anesthesia problems. No complications reported per nursing. RUBEN ANGELES CRNA Jan 20, 2018 07:01
[2018-01-20] MEDS: PRENATAL VITAMIN 1 EA TAB PO SCH (09:45)
--- NOTE | 2018-01-20 10:27 | Progress Note (SOAP) ---
Subjective Subjective/Events-last exam Lochia less then period. Pain well controlled on PO meds. Tolerating PO diet and ambulation. Review of Systems Date Seen by Provider: Jan 20, 2018 Time Seen by Provider: 10:24 HEENT: No Visual Changes Cardiovascular: No: Chest Pain Gastrointestinal: No: Nausea, Vomiting Genitourinary: No Dysuria, No Frequency Objective Exam Last Set of Vital Signs Vital Signs Date Time Temp Pulse Resp B/P (MAP) Pulse Ox O2 Delivery O2 Flow Rate FiO2 01/20/18 04:57 98.0 79 18 104/63 (77) 98 Room Air Capillary Refill : General: Alert, Oriented X3, Cooperative, No Acute Distress Abdomen: Normal Bowel Sounds, Soft, No Tenderness, No Hepatosplenomegaly, No Masses, Other (fundus firm and below umbilicus) Extremities: No Edema, No Tenderness/Swelling Results/Procedures Lab Laboratory Tests 01/20/18 05:20: White Blood Count 16.2H, Red Blood Count 3.42L, Hemoglobin 9.2L, Hematocrit 28L , Mean Corpuscular Volume 82, Mean Corpuscular Hemoglobin 27, Mean Corpuscular Hemoglobin Concent 33, Red Cell Distribution Width 14.5, Platelet Count 251, Mean Platelet Volume 10.7H, Neutrophils (%) (Auto) 76H, Lymphocytes (%) (Auto) 15, Monocytes (%) (Auto) 7, Eosinophils (%) (Auto) 2, Basophils (%) (Auto) 0, Neutrophils # (Auto) 12.3H, Lymphocytes # (Auto) 2.4, Monocytes # (Auto) 1.2H, Eosinophils # (Auto) 0.2, Basophils # (Auto) 0.0 Assessment/Plan Assessment/Plan Admission Status: Inpatient Order (span 2 midnights) Reason for Inpatient Admission: Post care (1) Normal vaginal delivery Status: Acute Assessment & Plan: Routine post care Pain controlled with PO meds (2) Anemia, Status: Acute Assessment & Plan: Added daily iron supplementation continue PNV (3) Amphetamine abuse Status: Chronic Assessment & Plan: SW has been consulted Patient unsure about adoption at this time Clinical Quality Measures DVT/VTE Risk/Contraindication: Risk Factor Score Per Nursin RFS Level Per Nursing on Admit: 2=Moderate LIDYA DE LEON MD Jan 20, 2018 10:27 am
[2018-01-20 13:00] VITALS: BP 115/76
[2018-01-20] MEDS: FERROUS SULF 325 MG (IRON) TAB PO SCH (13:12)
[2018-01-20 20:10] VITALS: BP 127/79
[2018-01-21] MEDS: IBUPROFEN 600 MG (MOTRIN) TAB PO SCH ×4 (02:18→16:01)
[2018-01-21 02:20] VITALS: BP 129/84
[2018-01-21] MEDS: FERROUS SULF 325 MG (IRON) TAB PO SCH (08:36)
[2018-01-21] MEDS: PRENATAL VITAMIN 1 EA TAB PO SCH ×2 (08:36→08:59)
[2018-01-21 09:28] VITALS: BP 131/84
[2018-01-21 16:00] VITALS: BP 129/78
[2018-01-21] MEDS ORDERED: TETANUS,DIPTH,PERTUSS P/F (BOOSTRIX) 0.5 ML VIAL IM ONE (16:01)
--- NOTE | 2018-01-21 17:08 | Discharge Summary ---
Diagnosis/Chief Complaint Date of Admission Jan 19, 2018 at 08:00 Date of Discharge 01/21/18 Admission Diagnosis Admission Diagnosis Term IOL Discharge Diagnosis of term female infant Post anemia Maternal drug use during Chief Complaint/HPI Chief Complaint/HPI Scheduled IOL Discharge Summary-Simple/Stand Procedures Discharge Physical Examination Allergies: Coded Allergies: No Known Drug Allergies (Unverified , 07/21/16) Vitals & I&Os Vital Sign - Last 12Hours Date Time Temp Pulse Resp B/P (MAP) Pulse Ox O2 Delivery O2 Flow Rate FiO2 01/21/18 16:00 98.4 114 18 129/78 (95) 97 Room Air General Appearance: Alert, Oriented X3, No Acute Distress Respiratory: Clear to Auscultation, Normal Air Movement Cardiovascular: Regular Rate, No Murmurs Abdominal: Normal Bowel Sounds, Soft, No Tenderness, No Hepatosplenomegaly, No Masses, Other (Fundus firm and below umbilicus) Extremities: No Edema, No Tenderness/Swelling Psych/Mental Status: Mental Status NL, Other (Anxious) Hospital Course See final discharge diagnosis. Discussion & Recommendations 22 yo G3 now P3 that delivered term female . Mother upon admission had + UDS for Amp and MJ. Had uncomplicated delivery of . During admission infant had poor feeding and withdraw symptoms. I had multiple conversations with mother regarding her plans. She would be interested in going to rehab but does not understand why her infant is not getting discharged today. I explained that the infant had lost 10% of her body weight and continues to feed poorly. Discussed with mother that disregarding the social situation the infant would still need to stay in the hospital due to this weight loss. Mother was very skeptical of why infant was staying. I discussed with her that it is up to the state regarding her infant and it was out of my hands. She became very frustrated and anxious at that time. Mother is currently living on multiple people's couches, she does not currently have any employment. Discharge Condition at discharge stable Instructions to patient/family Please see electronic discharge instructions given to patient. Discharge Medications Reviewed and agree with Discharge Medication list on patient's Discharge Instruction sheet Clinical Quality Measures DVT/VTE Risk/Contraindication: Risk Factor Score Per Nursin RFS Level Per Nursing on Admit: 2=Moderate Copy Copies To 1: MIGUEL MIR MD, HOLLY R MD Jan 21, 2018 17:08
[2018-01-21] MEDS ORDERED: IBUP-1773 PO (17:09)
[2018-01-21] MEDS ORDERED: FERR325T18 PO (17:09)
--- NOTE | 2018-01-21 17:11 | Discharge Instructions ---
Discharge Inst-[facility] Depart Medications New, Converted or Re-Newed RX: Transmitted to Pharmacy ([facility] ) Final Diagnosis Spontaneous delivery of female infant Post anemia of blood loss New Medications: Ferrous Sulfate (Ferrous Sulfate) 325 Mg Tablet 325 MG PO DAILY@0700, #30 TAB Ibuprofen (Ibuprofen) 600 Mg Tablet 600 MG PO Q6H, #90 TAB Follow Up/Instructions Goal/Follow Up: [address] Hernandes Activity Activity: Activity as Tolerated Driving Instructions: You May Drive NO SMOKING: NO SMOKING Nothing Inside Vagina: No Douching, No Hodgen, No Tampons Diet Discharge Diet: No Restrictions Symptoms to Report to : Bleeding Excessive, Fever Over 101 Degrees F, Shortness of Breath For Any Problems or Questions: Contact Your Physician Copies To 1: MIGUEL HERNANDES MD, HOLLY R MD Jan 21, 2018 17:11
== END 2018-01-21 18:30 | disposition home or self-care (01) | DRG 775 ==
LOC: LDRP 08:00
PROVIDERS: ADMIT Family Medicine; ATTEND Family Medicine
PROC: 10E0XZZ Delivery of Products of Conception, External Approach (ICD-10-PCS; principal; 2018-01-19)
PROC: 3E033VJ Introduction of Other Hormone into Peripheral Vein, Percutaneous Approach (ICD-10-PCS; 2018-01-19)
DX: O48.0 Post-term pregnancy (principal); O99.824 Streptococcus B carrier state complicating childbirth; O99.334 Smoking (tobacco) complicating childbirth; F17.210 Nicotine dependence, cigarettes, uncomplicated; O90.81 Anemia of the puerperium; D62 Acute posthemorrhagic anemia; O99.324 Drug use complicating childbirth; F15.10 Other stimulant abuse, uncomplicated; F12.10 Cannabis abuse, uncomplicated; Z37.0 Single live birth; Z3A.40 40 weeks gestation of pregnancy; Z23 Encounter for immunization
CPT/HCPCS: 36415; 80306; 85025; 86803; 86850; 86900; 86901; 90715

== ENCOUNTER 2018-05-01 01:01 | Emergency (ER) | payer SELFPAY ==
[~2018-05-01 01:01] MED LIST changes: +FERR325T18 PO; +IBUP-1773 PO; -RANI150T15 PO; +RANI150T46 PO
== END 2018-05-01 01:10 | disposition left against medical advice (07) ==
LOC: EDUNIT# 01:01 → ER 01:05
DX: T15.02XA Foreign body in cornea, left eye, initial encounter (principal)

== ENCOUNTER 2018-05-19 07:44 | Inpatient (IN) | payer SELFPAY ==
[~2018-05-19] VITALS: Ht 157.5 cm; Wt 52.8 kg
[2018-05-19] MEDS ORDERED: ZIPRASIDONE 20 MG INJ (GEODON) VIAL IM ONE ×5 (07:45→17:00)
[2018-05-19] MEDS ORDERED: WATER (STERILE) FOR INJECTION 20 ML ONE ×2 (07:45→15:50)
[2018-05-19] MEDS ORDERED: OLANZapine 5 MG ODT (ZyPREXA ZYDIS) PO ONE (08:00)
[2018-05-19 08:25] LABS: BILIRUBIN,URINE NEGATIVE (NEGATIVE); GLUCOSE, URINE (UA) NEGATIVE (NEGATIVE); KETONES,URINE 1+ (NEGATIVE); LEUKOCYTE ESTERASE ,URINE 3+ (NEGATIVE); NITRITE,URINE NEGATIVE (NEGATIVE); PH,URINE 6 (5-9); PROTEIN,URINE 3+ (NEGATIVE); UROBILINOGEN,URINE NORMAL (NORMAL)
[2018-05-19 08:26] LABS: BACTERIA,URINE MODERATE /HPF; CLARITY,URINE CLEAR; COLOR,URINE YELLOW; RBC,URINE RARE /HPF; WBC,URINE 25-50 /HPF
[2018-05-19 08:31] LABS: AMPHETAMINE SCREEN, URINE POSITIVE (NEGATIVE); BARBITURATE SCREEN URINE NEGATIVE (NEGATIVE); BENZODIAZEPINES SCREEN URINE POSITIVE (NEGATIVE); CANNABINOID SCREEN, URINE POSITIVE (NEGATIVE); COCAINE SCREEN URINE NEGATIVE (NEGATIVE); METHADONE STAT NEGATIVE (NEGATIVE); METHAMPHETAMINE SCREEN URINE S POSITIVE (NEGATIVE); OPIATE SCREEN URINE NEGATIVE (NEGATIVE); OXYCODONE STAT NEGATIVE (NEGATIVE); PROPOXYPHENE STAT NEGATIVE (NEGATIVE); TRICYCLIC ANTIDEPRESSANTS SCRE NEGATIVE (NEGATIVE)
[2018-05-19 08:34] LABS: BASOPHILS % (AUTO) 0 % (0-10); EOSINOPHILS # (AUTO) 0.1 10^3/uL (0.0-0.3); EOSINOPHILS % (AUTO) 1 % (0-10); HEMATOCRIT 39 % (35-52); HEMOGLOBIN 12.8 G/DL (11.5-16.0); LYMPHOCYTES # (AUTO) 2.2 X 10^3 (1.0-4.0); LYMPHOCYTES % (AUTO) 21 % (12-44); MEAN CORPUSCULAR HEMOGLOBIN 26 PG (25-34); MEAN CORPUSCULAR HGB CONC 33 G/DL (32-36); MEAN CORPUSCULAR VOLUME 78 FL (80-99); MONOCYTES % (AUTO) 10 % (0-12); NEUTROPHILS # (AUTO) 7.3 X 10^3 (1.8-7.8); NEUTROPHILS % (AUTO) 69 % (42-75); PLATELET COUNT 446 10^3/uL (130-400); RED BLOOD COUNT 4.99 10^6/uL (4.35-5.85); RED CELL DISTRIBUTION WIDTH 17.5 % (10.0-14.5); WHITE BLOOD COUNT 10.6 10^3/uL (4.3-11.0)
[2018-05-19] MEDS ORDERED: CLONIDINE (08:42)
[2018-05-19 08:57] LABS: ALANINE AMINOTRANSFERASE 28 U/L (0-55); ALBUMIN 4.8 GM/DL (3.2-4.5); ALKALINE PHOSPHATASE 62 U/L (40-136); BILIRUBIN,TOTAL 0.5 MG/DL (0.1-1.0); BUN/CREATININE RATIO 21; CALCIUM 10.2 MG/DL (8.5-10.1); CARBON DIOXIDE 23 MMOL/L (21-32); CHLORIDE 107 MMOL/L (98-107); CREATININE SERUM 0.96 MG/DL (0.60-1.30); GFR ESTIMATED > 60; GLUCOSE 98 MG/DL (70-105); POTASSIUM 3.9 MMOL/L (3.6-5.0); SALICYLATE < 5.0 MG/DL (5.0-20.0); SODIUM 141 MMOL/L (135-145); TOTAL PROTEIN 8.2 GM/DL (6.4-8.2)
--- NOTE | 2018-05-19 08:58 | ED Psychosocial ---
General Chief Complaint: Psych/Social Disorder Stated Complaint: SUICIDAL//SUBSTANCE ABUSE Nursing Triage Note: BROUGHT IN BY PARENTS IN A PSYCHOTIC STATE. YELLING, JUMPING UP AND DOWN, ET THROWING SELF ON THE FLOOR. ADMITS TO METH USE. LEFT EYE VERY RED. STATES SHE HAS BEEN PICKING IT BECAUSE WOMEN ON THE STREETS HAVE BEEN PUTTING FIBERGLASS IN IT. Source: patient Exam Limitations: no limitations History of Present Illness Date Seen by Provider: May 19, 2018 Time Seen by Provider: 07:48 Initial Comments Here by POV. Her mother dropped her off trying to get her help. Patient is acutely agitated and states that it's related to having her children taken away. Apparently 4 months ago she had a child that was born taken away from her due to drug abuse. She states that all her children up and taken away and she is been out of her mind since. This has been going on over the last couple of years. She admits to methamphetamine use as well as marijuana and benzos. Complains of left eye pain stating that she feels like something is in there and she admits to picking her eye frequently. Denies homicidality or suicidality to me but mother reports that she had stated that she wanted to harm herself or somebody else and mother also reports that the patient had a knife it was taken away by the mother. Denies injury but states that she feels out of control and doesn't know what to do. Patient is homeless currently. Timing/Duration: getting worse Severity: severe Associated Symptoms: anxiety, impaired concentration Allergies and Home Medications Allergies Coded Allergies: No Known Drug Allergies (Unverified , 07/21/16) Patient Home Medication List Home Medication List Reviewed: Yes Constitutional: see HPI; No chills, No fever EENTM: see HPI, eye pain, tearing Respiratory: no symptoms reported Cardiovascular: no symptoms reported Gastrointestinal: no symptoms reported Skin: lesions (multiple picking lesions); No rash Psychiatric/Neurological: See HPI, Anxiety, Emotional Problems All Other Systems Reviewed Negative Unless Noted: Yes Past [id number]-Blippe Hx Past Med/Social Hx: Reviewed Nursing Past Med/Soc Hx Patient Social History Alcohol Use: Denies Use Alcohol Beverage of Choice: Beer, Vodka Recreational Drug Use: Yes Drug of Choice: METH, POT, BENZO'S, PCP, EX Smoking Status: Current Everyday Smoker Type Used: Cigarettes 2nd Hand Smoke Exposure: No Recent Foreign Travel: No Contact w/Someone Who Travel: No Recent Infectious Disease Expo: No Recent Hopitalizations: No Immunizations Up To Date Tetanus Booster (TDap): Less than 5yrs Date of Influenza Vaccine: Jul 24, 2014 Seasonal Allergies Seasonal Allergies: No Past Medical History Surgeries: Yes (DENTAL) Respiratory: Yes Asthma Cardiac: Yes Hypertension Neurological: No Reproductive Disorders: No Female Reproductive Disorders: Denies Sexually Transmitted Disease: Yes (chlamydia) HIV/AIDS: No Genitourinary: No Gastrointestinal: No Musculoskeletal: No Endocrine: Yes (hypoglycemia) Cancer: No Psychosocial: Yes ADD/ADHD, Anxiety, Personality Disorder, Depression Integumentary: No Blood Disorders: No Adverse Reaction/Blood Tranf: No (HAS HAD A BLOOD TRANSFUSION AFTER . ) Family Medical History Reviewed Nursing Family Hx Patient reports no known family medical history. No Pertinent Family Hx Physical Exam Vital Signs - First Documented 05/19/18 07:44 Temp 98.0 Pulse 122 Resp 20 B/P (MAP) 125/89 (101) Pulse Ox 98 O2 Delivery Room Air Capillary Refill : Less Than 3 Seconds Height, Weight, BMI Height: 5'2.00" Weight: 110lbs. 4.0oz. [id number]; 25.7 BMI Method:Estimated General Appearance: WD/WN, moderate distress HEENT: pharynx normal, other (left thigh with erythema around the eye and to the conjunctiva consistent with conjunctivitis. Notable loss of eyelashes to the left upper and lower eyelids.) Neck: full range of motion, supple Respiratory: lungs clear, normal breath sounds Cardiovascular: regular rate, rhythm, no murmur Peripheral Pulses: 2+ Dorsalis Pedis (R), 2+ Left Dors-Pedis (L), 2+ Radial Pulses (R), 2+ Radial Pulses (L) Gastrointestinal: non tender, soft Extremities: normal range of motion, non-tender Neurologic/Psychiatric: no motor/sensory deficits Appearance/Memory: disheveled, impaired insight Behavior/Eye Contact: avoids eye contact, increased rate of speech, belligerent Thoughts/Hallucinations: flight of ideas, obsessive Skin: other (multiple small lesions on extremities where she is picking.) Progress/Results/Core Measures Results/Orders Lab Results Laboratory Tests Test 05/19/18 07:52 8/7/18 08:28 Range/Units Urine Color YELLOW Urine Clarity CLEAR Urine pH 6 5-9 Urine Specific [place] 1.025 H 1.016-1.022 Urine Protein 3+ H NEGATIVE Urine Glucose (UA) NEGATIVE NEGATIVE Urine Ketones 1+ H NEGATIVE Urine Nitrite NEGATIVE NEGATIVE Urine Bilirubin NEGATIVE NEGATIVE Urine Urobilinogen NORMAL NORMAL MG/DL Urine Leukocyte Esterase 3+ H NEGATIVE Urine RBC (Auto) NEGATIVE NEGATIVE Urine RBC RARE /HPF Urine WBC 25-50 H /HPF Urine Squamous Epithelial Cells 5-10 /HPF Urine Crystals NONE /LPF Urine Bacteria MODERATE H /HPF Urine Casts NONE /LPF Urine Mucus MODERATE H /LPF Urine Culture Indicated YES Urine Opiates Screen NEGATIVE NEGATIVE Urine Oxycodone Screen NEGATIVE NEGATIVE Urine Methadone Screen NEGATIVE NEGATIVE Urine Propoxyphene Screen NEGATIVE NEGATIVE Urine Barbiturates Screen NEGATIVE NEGATIVE Ur Tricyclic Antidepressants Screen NEGATIVE NEGATIVE Urine Phencyclidine Screen NEGATIVE NEGATIVE Urine Amphetamines Screen POSITIVE H NEGATIVE Urine Methamphetamines Screen POSITIVE H NEGATIVE Urine Benzodiazepines Screen POSITIVE H NEGATIVE Urine Cocaine Screen NEGATIVE NEGATIVE Urine Cannabinoids Screen POSITIVE H NEGATIVE White Blood Count 10.6 4.3-11.0 10^3/uL Red Blood Count 4.99 4.35-5.85 10^6/uL Hemoglobin 12.8 11.5-16.0 G/DL Hematocrit 39 35-52 % Mean Corpuscular Volume 78 L 80-99 FL Mean Corpuscular Hemoglobin 26 25-34 PG Mean Corpuscular Hemoglobin Concent 33 32-36 G/DL Red Cell Distribution Width 17.5 H 10.0-14.5 % Platelet Count 446 H 130-400 10^3/uL Mean Platelet Volume 10.0 7.4-10.4 FL Neutrophils (%) (Auto) 69 42-75 % Lymphocytes (%) (Auto) 21 12-44 % Monocytes (%) (Auto) 10 0-12 % Eosinophils (%) (Auto) 1 0-10 % Basophils (%) (Auto) 0 0-10 % Neutrophils # (Auto) 7.3 1.8-7.8 X 10^3 Lymphocytes # (Auto) 2.2 1.0-4.0 X 10^3 Monocytes # (Auto) 1.0 0.0-1.0 X 10^3 Eosinophils # (Auto) 0.1 0.0-0.3 10^3/uL Basophils # (Auto) 0.0 0.0-0.1 10^3/uL Sodium Level 141 135-145 MMOL/L Potassium Level 3.9 3.6-5.0 MMOL/L Chloride Level 107 98-107 MMOL/L Carbon Dioxide Level 23 21-32 MMOL/L Anion Gap 11 5-14 MMOL/L Blood Urea Nitrogen 20 H 7-18 MG/DL Creatinine 0.96 0.60-1.30 MG/DL Estimat Glomerular Filtration Rate > 60 BUN/Creatinine Ratio 21 Glucose Level 98 70-105 MG/DL Calcium Level 10.2 H 8.5-10.1 MG/DL Total Bilirubin 0.5 0.1-1.0 MG/DL Aspartate Amino Transf (AST/SGOT) 22 5-34 U/L Alanine Aminotransferase (ALT/SGPT) 28 0-55 U/L Alkaline Phosphatase 62 40-136 U/L Total Protein 8.2 6.4-8.2 GM/DL Albumin 4.8 H 3.2-4.5 GM/DL Salicylates Level < 5.0 L 5.0-20.0 MG/DL Acetaminophen Level < 10 L 10-30 UG/ML Serum Alcohol < 10 <10 MG/DL My Orders Orders - ROHIT BETTENCOURT MD Ziprasidone Injection (Geodon Injection) (05/19/18 07:45) Water (Sterile) For Injection (Sterile W (05/19/18 07:45) Olanzapine Orally Dissolve Tab (Zyprexa (05/19/18 08:00) Ua Culture If Indicated (05/19/18 08:00) Cbc With Automated Diff (05/19/18 08:00) Comprehensive Metabolic Panel (05/19/18 08:00) Alcohol (05/19/18 08:00) Drug Screen Stat (Urine) (05/19/18 08:00) Acetaminophen (05/19/18 08:00) Salicylate (05/19/18 08:00) Ekg Tracing (05/19/18 08:00) Urine Culture (05/19/18 07:52) General/Regular (05/19/18 Breakfast) Rx-Tobramycin Ophth Drops (Rx-Tobrex 0.3 (05/19/18 09:08) Rx-Tobramycin/Dexam. (Rx-Tobradex Op Nayeli (05/19/18 09:21) Ziprasidone Injection (Geodon Injection) (05/19/18 09:55) Ziprasidone Injection (Geodon Injection) (05/19/18 10:45) Ziprasidone Injection (Geodon Injection) (05/19/18 15:50) Water (Sterile) For Injection (Sterile W (05/19/18 15:50) Abdomen/Kub 1view (05/19/18 16:17) Ziprasidone Injection (Geodon Injection) (05/19/18 17:00) Medications Given in ED Current Medications Medications Dose Ordered Sig/Sachin Route Start Time Stop Time Status Last Admin Dose Admin Sterile Water 20 ml @ ud STK-MED ONCE .ROUTE 05/19/18 07:45 05/19/18 07:48 DC 05/19/18 10:30 1.2 MLS/HR Ziprasidone 20 mg ONCE ONCE IM 05/19/18 10:45 05/19/18 10:46 DC 05/19/18 10:30 20 MG Vital Signs/I&O 05/19/18 05/19/18 05/19/18 05/19/18 07:44 10:51 13:48 15:37 Temp 98.0 Pulse 122 112 93 93 Resp 20 18 16 16 B/P (MAP) 125/89 (101) 131/63 (85) 124/84 (97) 127/95 (106) Pulse Ox 98 100 98 99 O2 Delivery Room Air Room Air Room Air Room Air Blood Pressure Mean: 101 Urine -Bedside: Negative Progress Progress Note : Progress Note Seen and evaluated. Patient very disruptive initially and Geodon was ordered. Patient refused and calmed. She did accept the idea of possibly taking Zyprexa by mouth. This was ordered and patient refused that and was able to keep herself calm so this was not forced. We did have long force movement intervene early on and patient became more appropriate. She did accept testing both laboratory and EKG. We will do medical screening. Mother is very concerned about patient's safety due to the situation with the knife earlier. We will ask mental health for evaluation for possible involuntary treatment. TobraDex ordered for treatment of eye. 0925: Patient refusing eyedrops as she says this is the same drops that she had before although she does not know the name of them. She reports that this can't be conjunctivitis because it hasn't gotten better. She is becoming more and more aggressive. She is refusing treatments ordered dictating plan of care and is quite manipulative of the situation. 1000 : Police have been notified as patient is quite agitated. Mental health evaluation will be in to evaluate as well. 1045: Patient was given Geodon 20 mg IM. Patient very disruptive and kicking at staff. She threw her medications at the nurse's well. Patient was restrained by police and Geodon was given. [facility] is here currently evaluating and believes the patient will need involuntary admission due to her agitated state. She is admitting that she would like to kill herself by stepping out into traffic. [facility] working to get admission. Patient is currently screaming in the emergency department. 1200: Patient resting peacefully after Geodon. Pending evaluation completion. 1300: I did speak with [facility] and they are sending everything over to [facility]. Pending approval acceptance as well as bed assignment. Continue to monitor. 1600: Repeat Geodon 10 mg IM for repeat agitation. Patient to be admitted to our hospital pending transfer to [facility] as they are concerned that this may be methamphetamine acute psychosis I want to ensure that she is clear of this before admission. They will call back in the morning as she is the first call in the morning. Patient is to be involuntary admission due to suicide concerns. I did discuss the case with Dr. Spencer and she accepts patient for admission to the ICU. Patient still has conjunctivitis concerns and we will continue treatment with TobraDex if patient will comply. Suicide precautions. 1624: Patient swallowed the backing to her bellybutton ring when all of her jugular was removed. At that time she reports that she has been eating screws. We will get an abdominal x-ray on the way to the ICU. I did discuss this with Dr. Spencer and she will follow. 1640: Dr. Moreno informed and will be consulted. Patient does have one screw noted on the x-ray but final report pending. No free air in the abdomen. Likely just monitoring needed. Continue admission. Initial ECG Impression Date: May 19, 2018 Initial ECG Impression Time: 08:36 Initial ECG Rate: 103 Initial ECG Rhythm: S.Tach Initial ECG Comparisson: Unchanged Comment Sinus tachycardia with normal axis. No evidence of ST elevation [place]. Similar to October 2016. Interpreted by me. Departure Communication (Admissions) Time/Spoke to Admitting Phy: 15:58 Impression Primary Impression: Acute psychosis Additional Impressions: Suicidal ideation Methamphetamine abuse Conjunctivitis Qualified Codes: H10.32 - Unspecified acute conjunctivitis, left eye Disposition: ADMITTED INPATIENT Condition: Stable Admissions Decision to Admit Reason: Admit from ER (General) Decision to Admit/Date: May 19, 2018 Time/Decision to Admit Time: 15:58 Departure-Patient Inst. Referrals: [facility] (PCP/Family) Primary Care Physician ROHIT BETTENCOURT MD May 19, 2018 08:58
[2018-05-19 08:59] LABS: ACETAMINOPHEN < 10 UG/ML (10-30)
[2018-05-19] MEDS ORDERED: RX-TOBRAMYCIN 0.3% OPHTH (TOBREX) SOLN 5 ML BTL OP STA (09:08)
[2018-05-19] MEDS ORDERED: RX-TOBRA/DEXAMETH (TOBRADEX) OP. SUSP 2.5 ML BTL ONE (09:21)
[2018-05-19 10:51] VITALS: BP 131/63
[2018-05-19 13:48] VITALS: BP 124/84
[2018-05-19 15:37] VITALS: BP 127/95
[2018-05-19 16:30] VITALS: BP 119/88
--- NOTE | 2018-05-19 16:33 | Diagnostic Imaging Report ---
INDICATION: Foreign body. FINDINGS: The bowel gas pattern is nonspecific. There is a tiny screw overlying the right colon. There are no other abnormal abdominal calcifications. IMPRESSION: Tiny radiopaque screw overlying the right colon. The bowel gas pattern is otherwise nonspecific. Dictated by: Dictated on workstation # [id number]
[2018-05-19] MEDS ORDERED: CATHETER FLUSH 10 ML SYR IV PRN (17:00)
[2018-05-19] MEDS ORDERED: ZIPRASIDONE 20 MG INJ (GEODON) VIAL IM PRN (17:00)
[2018-05-19] MEDS ORDERED: diphenhydrAMINE 50 MG/ML INJ (BENADRYL) IM NR (17:45)
[2018-05-19] MEDS ORDERED: HALOPERIDOL 5 MG/ML (HALDOL) AMP IM NR (17:45)
[2018-05-19] MEDS ORDERED: LORazepam INJ 2 MG/ML (ATIVAN) VIAL IM NR (17:45)
[2018-05-19] MEDS ORDERED: LORazepam INJ 2 MG/ML (ATIVAN) VIAL IVP PRN (18:00)
[2018-05-19] MEDS ORDERED: LACTATED RINGERS 1,000 ML IV SCH (18:00)
[2018-05-19] MEDS ORDERED: HALOPERIDOL 5 MG/ML (HALDOL) AMP IM/IV PRN ×2 (18:00→18:45)
[2018-05-19] MEDS ORDERED: DEXMEDETOMIDINE INJECTION 400 MCG in NS (IVPB) 96 ML IV SCH (18:00)
--- NOTE | 2018-05-19 18:29 | History & Physicial (CHS) ---
HPI History of Present Illness: 22 year old female presented to the ED earlier today, acutely psychotic and agitated. She has a known history of methamphetamine abuse, as well as IV drug abuse with last admitted IV meth use in late October 2017 per review of clinic records. Patient with last meth use shortly prior to arrival. She was brought in by her mother after she had a knife and was threatening to harm herself or someone else; the mother took the knife from her and brought the patient to the ED. The patient was extremely agitated in the ED, eventually requiring the police department be contacted to help restrain the patient so that sedatives could safely be administered by staff. In addition to lashing out at staff, she threatened to run out in traffic and kill herself; as she was noted to be actively psychotic and suicidal, the patient was placed on an involuntary hold. She was kept in the ED for more than 8 hours, attempting to secure inpatient psychiatric placement. The patient was tentatively accepted by [facility], but they would like her to be free from methamphetamines for 24 hours prior to transfer to their facility, in order to make sure her psychosis was not due to her meth use shortly prior to arrival. The patient was initially sedated with 20 mg geodon IM; she required a second dose shortly before a call was placed requesting the patient placed in observation status until the morning when she could be transferred to a psychiatric facility. When getting the patient ready for transfer to the ICU for close monitoring, the patient removed her belly button ring when requested to by staff, but then promptly swallowed the back of the jewelry. The patient then stated she had been swallowing screws and things on occasion. The patient had an abdominal xray obtained on the way up to the ICU, and a single, small screw was noted in her right upper bowel. Dr. Moreno from surgery was consulted for clearance. The patient refuses to respond to most questions, and information is obtained from chart review, and report from the ED staff. Source: RN/, RN notes reviewed, old records Exam Limitations: other (sedation, pt refusal to communicate) Date seen by provider: May 19, 2018 Time Seen by Provider: 17:55 Attending Physician Anni Spencer APRN Consult Dr. Moreno, General Surgery Date of Admission May 19, 2018 at 16:13 Home Medications Home Medications Reviewed patient Home Medication Reconciliation performed by pharmacy medication reconciliations orthophotography technician and/or nursing. Patients Allergies have been reviewed. Allergies Coded Allergies: escitalopram (Verified Allergy, Unknown, 05/19/18) latex (Verified Allergy, Unknown, 05/19/18) [id number] Hx Patient Social History Marrital Status: single Number of Children: 3 Number of living children: 3 Living Status: homeless; parents live in [place] Employed/Student: unemployed Alcohol Use: Past History Recreational Drug Use: Yes Drug of Choice: METH, POT, BENZO'S, PCP, EX Smoking Status: Current Everyday Smoker Type Used: Cigarettes 2nd Hand Smoke Exposure: No Recent Foreign Travel: No Contact w/other who traveled: No Recent Hopitalizations: No Recent Infectious Disease Expo: No Physical Abuse Screen: No Sexual Abuse: No Immunizations Up To Date Tetanus Booster (TDap): Less than 5yrs Date of Influenza Vaccine: Jul 24, 2014 Past Medical History PMHx: Anxiety Methamphetamine abuse Hx IV drug abuse - last documented IV meth use Oct 2017 Polysubstance abuse ADHD Borderline Personality Disorder Arthritis SAB x3 Hx of Chlamydia 07/28/14, 07/26/15, 01/19/18 Inpatient drug rehab in [place], [place] - 2016 PSurgHx: Dental Surgery Family Medical History Significant Family History: No Pertinent Family Hx Family History: Patient reports no known family medical history. Review of Systems (CHC) Constitutional: see HPI EENTM: eye pain, tearing Respiratory: no symptoms reported Cardiovascular: no symptoms reported Gastrointestinal: no symptoms reported; No abdominal pain Genitourinary: no symptoms reported : No Musculoskeletal: no symptoms reported Skin: no symptoms reported Psychiatric/Neurological: See HPI, Anxiety, Depressed, Emotional Problems Physical Exam-(CHC) Physical Exam Vital Signs Capillary Refill : Less Than 3 Seconds General Appearance: WD/WN, no apparent distress, thin, other (disheveled ) Eyes: Bilateral Eye Normal Inspection HEENT: No scleral icterus (R), No scleral icterus (L), No photophobia Neck: non-tender, full range of motion, supple, normal inspection Respiratory: chest non-tender, lungs clear, normal breath sounds, no respiratory distress, no accessory muscle use Cardiovascular: regular rate, rhythm, no edema, no gallop, no JVD Peripheral Pulses: 2+ Radial Pulses (R), 2+ Radial Pulses (L) Gastrointestinal: normal bowel sounds, non tender, soft, no organomegaly, no pulsatile mass; No distended, No guarding, No rebound Rectal: deferred Back: normal inspection, no vertebral tenderness Extremities: normal range of motion, non-tender, normal inspection, no pedal edema, no calf tenderness, normal capillary refill Neurologic/Psychiatric: other (mildly sedated, refuses to answer questions other than to deny abdominal pain) Skin: normal color, warm/dry Assessment/Plan Assessment/Plan Admission Dx Psychosis Polysubstance Abuse Suicidal Ideation Homelessness Tobacco Abuse Pica Borderline Personality Disorder Depression Anxiety ADHD Admission Status: Observation Assessment & Plan Psychosis Polysubstance Abuse Suicidal Ideation Homelessness Tobacco Abuse Pica Borderline Personality Disorder Depression Anxiety ADHD Patient acutely psychotic with violent outbursts in the ED. It is also noted that she delivered a female on 01/19/18 at 40 1/7 wks gestation after extremely limited care; this infant was removed from her custody by the state 2 days after delivery and placed in foster care. The patient also has two other children, a 3.5 year old girl and 2.5 year old boy, that she does not have custody of either - those children live with their father's dad. Her delivery in January of this year is significant, as depression and/or psychosis could certainly be playing a role. The patient also has a long history of polysubstance abuse, specifically meth and THC, and has completed inpatient rehab in [place] in the past, in 2017. She does have a documented history of IV drug abuse. She has a previous suicide attempt by overdose, and has had multiple psychiatric hospitalizations. The patient was seen on arrival to the ICU. She is calm if left alone, but gets agitated easily, even just with physical exam or taking of vital signs. Dr. Moreno with General Surgery also came to examine the patient, as she admitted in the ED to swallowing screws, only a single small screw was noted in her right colon on xray, and the patient is without abdominal pain and her abdomen is soft and nontender on exam, without rebound or guarding. His recommendation is to repeat xray weekly to assure passage of the screw, which he feels should pass without difficulty or incident. Given that there are critically ill patients on the floor, and that the patient has required restraint by force more than once while in the ED, the decision was made to give the patient additional IM sedation so that an IV could be placed. She tolerated this well, and an IV was successfully placed by the nursing staff. The patient was placed on a precedex gtt in order for her to rest and stay safe , as well as for the safety of the staff and other patients. She was placed on telemetry, and her vital signs were stable. She was observed to be resting comfortably. I will see the patient again in the morning and we will see how she does without sedation; she has additional PRN medication available tonight if needed. Clinical Quality Measures DVT/VTE Risk/Contraindication: Risk Factor Score Per Nursin RFS Level Per Nursing on Admit: 1=Low/No VTE PPX Copy Copies To 1: [facility]/ANNI ROWLEY DO May 19, 2018 18:29
[2018-05-19] MEDS ORDERED: MIDAZOLAM 2 MG/2 ML (VERSED) VIAL ONE (18:57)
[2018-05-19] MEDS ORDERED: MIDAZOLAM 2 MG/2 ML (VERSED) VIAL IM NR (19:00)
--- NOTE | 2018-05-19 19:12 | Consultation ---
History of Present Illness History of Present Illness Patient Consulted On(kylie/time) 05/19/18 19:07 Date Seen by Provider: May 19, 2018 Time Seen by Provider: 17:12 History of Present Illness consult from Dr. Cain for foreign body colon. patient is a 22 year old female brought in by family for acute psychosis. Patient admitted to methamphetamine and marijuana use, but currently at my time of examination sleeping from medications administered to control her psychosis. Patient had reported to eating screws and the back of her belly button ring. The patient had abdominal x rays not showing any free air and metallic object right colon that appears to be a screw. Patient not reporting abdominal pain to other providers. Patient not discussing any of her complaints but does follow my commands as I continue to ask her. Allergies and Home Medications Allergies Coded Allergies: No Known Drug Allergies (Unverified , 07/21/16) Patient Home Medication List Home Medication List Reviewed: Yes Past Cagrqhv-Lgtcps-Xqnnod Hx Patient Social History Alcohol Use: Past History Recreational Drug Use: Yes Drug of Choice: METH, POT, BENZO'S, PCP, EX Smoking Status: Current Everyday Smoker Type Used: Cigarettes 2nd Hand Smoke Exposure: No Recent Foreign Travel: No Contact w/Someone Who Travel: No Recent Infectious Disease Expo: No Recent Hopitalizations: No Physical Abuse Screen: No Sexual Abuse: No Immunizations Up To Date Tetanus Booster (TDap): Less than 5yrs Date of Influenza Vaccine: Jul 24, 2014 Seasonal Allergies Seasonal Allergies: No Surgeries History of Surgeries: Yes (DENTAL) Respiratory History of Respiratory Disorde: Yes Respiratory Disorders: Asthma Cardiovascular History of Cardiac Disorders: No Cardiac Disorders: Hypertension Neurological History of Neurological Disord: No Reproductive System Hx Reproductive Disorders: No Sexually Transmitted Disease: Yes (chlamydia) HIV/AIDS: No Female Reproductive Disorders: Denies Genitourinary History of Genitourinary Disor: No Gastrointestinal History of Gastrointestinal Di: No Musculoskeletal History of Musculoskeletal Dis: No Endocrine History of Endocrine Disorders: Yes (hypoglycemia) Cancer History of Cancer: No Psychosocial History of Psychiatric Problem: Yes Behavioral Health Disorders: ADD/ADHD, Anxiety, Personality Disorder, Depression Integumentary History of Skin or Integumenta: No Blood Transfusions History of Blood Disorders: No Adverse Reaction to a Blood Tr: No (HAS HAD A BLOOD TRANSFUSION AFTER . ) Family Medical History Significant Family History: No Pertinent Family Hx Family Medial History: Patient reports no known family medical history. Review of Systems-General ROS-Unable to Obtain: due to patient noncompliance Physical Exam-General Problems Physical Exam Vital Signs Vital Signs - First Documented 05/19/18 07:44 Temp 98.0 Pulse 122 Resp 20 B/P (MAP) 125/89 (101) Pulse Ox 98 O2 Delivery Room Air Capillary Refill : Less Than 3 Seconds General Appearance: no apparent distress (sleeping in bed) HEENT: other (left contjunctivitis) Neck: supple Respiratory: chest non-tender, lungs clear, no respiratory distress, no accessory muscle use Cardiovascular: regular rate, rhythm Gastrointestinal: non tender, soft, no organomegaly; No guarding, No rebound, No tenderness Rectal: deferred Back: no CVA tenderness Extremities: non-tender Neurologic/Psychiatric: other (patient in sedated state secondary to Geodon, she is not talking with me but will follow directions if repeated asked.) Skin: warm/dry (picking sores) Lymphatic: no adenopathy Data Review Labs Laboratory Tests 05/19/18 07:52: Urine Color YELLOW, Urine Clarity CLEAR, Urine pH 6, Urine Specific [place] 1.025H, Urine Protein 3+H, Urine Glucose (UA) NEGATIVE, Urine Ketones 1+H, Urine Nitrite NEGATIVE, Urine Bilirubin NEGATIVE, Urine Urobilinogen NORMAL, Urine Leukocyte Esterase 3+H, Urine RBC (Auto) NEGATIVE, Urine RBC RARE, Urine WBC 25-50H, Urine Squamous Epithelial Cells 5-10, Urine Crystals NONE, Urine Bacteria MODERATEH, Urine Casts NONE, Urine Mucus MODERATEH, Urine Culture Indicated YES, Urine Opiates Screen NEGATIVE, Urine Oxycodone Screen NEGATIVE, Urine Methadone Screen NEGATIVE, Urine Propoxyphene Screen NEGATIVE, Urine Barbiturates Screen NEGATIVE, Ur Tricyclic Antidepressants Screen NEGATIVE, Urine Phencyclidine Screen NEGATIVE, Urine Amphetamines Screen POSITIVEH, Urine Methamphetamines Screen POSITIVEH, Urine Benzodiazepines Screen POSITIVEH, Urine Cocaine Screen NEGATIVE, Urine Cannabinoids Screen POSITIVEH 05/19/18 08:28: White Blood Count 10.6, Red Blood Count 4.99, Hemoglobin 12.8, Hematocrit 39, Mean Corpuscular Volume 78L, Mean Corpuscular Hemoglobin 26, Mean Corpuscular Hemoglobin Concent 33, Red Cell Distribution Width 17.5H, Platelet Count 446H, Mean Platelet Volume 10.0, Neutrophils (%) (Auto) 69, Lymphocytes (%) (Auto) 21 , Monocytes (%) (Auto) 10, Eosinophils (%) (Auto) 1, Basophils (%) (Auto) 0, Neutrophils # (Auto) 7.3, Lymphocytes # (Auto) 2.2, Monocytes # (Auto) 1.0, Eosinophils # (Auto) 0.1, Basophils # (Auto) 0.0, Sodium Level 141, Potassium Level 3.9, Chloride Level 107, Carbon Dioxide Level 23, Anion Gap 11, Blood Urea Nitrogen 20H, Creatinine 0.96, Estimat Glomerular Filtration Rate > 60, BUN /Creatinine Ratio 21, Glucose Level 98, Calcium Level 10.2H, Total Bilirubin 0.5 , Aspartate Amino Transf (AST/SGOT) 22, Alanine Aminotransferase (ALT/SGPT) 28, Alkaline Phosphatase 62, Total Protein 8.2, Albumin 4.8H, Salicylates Level < 5.0L, Acetaminophen Level < 10L, Serum Alcohol < 10 Microbiology 05/19/18 Urine Culture - Preliminary, Resulted Sent To [facility] Assessment/Plan Assessment/Plan Assessment/Plan foreign body right colon appears to be screw. this should pass on its own. No surgical intervention. If change in physical exam or symptoms of abdominal pain would re-evaluate. acute psychosis methamphetamine marijuana use Patient has had mental health eval and awaiting placement tomorrow morning. If change in condition please notify. Clinical Quality Measures DVT/VTE Risk/Contraindication: Risk Factor Score Per Nursin RFS Level Per Nursing on Admit: 1=Low/No VTE PPX ANITA ROMANO DO May 19, 2018 19:12
[2018-05-19] MEDS ORDERED: TOBRA/DEXAMETH (TOBRADEX) OPHTH OINT 3.5 GM TUBE OS SCH (20:00)
[2018-05-19] MEDS: TOBRA/DEXAMETH (TOBRADEX) OPHTH SUSP 2.5 ML BTL OS SCH (20:11)
[2018-05-19] MEDS: CATHETER FLUSH 10 ML SYR IV SCH (22:08)
[2018-05-20] MEDS: TOBRA/DEXAMETH (TOBRADEX) OPHTH SUSP 2.5 ML BTL OS SCH ×4 (00:37→11:09)
[2018-05-20 04:44] LABS: BASOPHILS % (AUTO) 1 % (0-10); EOSINOPHILS # (AUTO) 0.2 10^3/uL (0.0-0.3); EOSINOPHILS % (AUTO) 3 % (0-10); HEMATOCRIT 40 % (35-52); HEMOGLOBIN 13.4 G/DL (11.5-16.0); LYMPHOCYTES # (AUTO) 2.7 X 10^3 (1.0-4.0); LYMPHOCYTES % (AUTO) 37 % (12-44); MEAN CORPUSCULAR HEMOGLOBIN 27 PG (25-34); MEAN CORPUSCULAR HGB CONC 34 G/DL (32-36); MEAN CORPUSCULAR VOLUME 80 FL (80-99); MEAN PLATELET VOLUME 9.9 FL (7.4-10.4); MONOCYTES % (AUTO) 14 % (0-12); NEUTROPHILS # (AUTO) 3.3 X 10^3 (1.8-7.8); NEUTROPHILS % (AUTO) 45 % (42-75); PLATELET COUNT 339 10^3/uL (130-400); RED BLOOD COUNT 4.99 10^6/uL (4.35-5.85); RED CELL DISTRIBUTION WIDTH 17.5 % (10.0-14.5); WHITE BLOOD COUNT 7.2 10^3/uL (4.3-11.0)
[2018-05-20 05:04] LABS: ALANINE AMINOTRANSFERASE 22 U/L (0-55); ALBUMIN 4.2 GM/DL (3.2-4.5); ALKALINE PHOSPHATASE 54 U/L (40-136); BILIRUBIN,TOTAL 0.7 MG/DL (0.1-1.0); BUN/CREATININE RATIO 16; CALCIUM 9.9 MG/DL (8.5-10.1); CARBON DIOXIDE 26 MMOL/L (21-32); CHLORIDE 107 MMOL/L (98-107); CREATININE SERUM 0.91 MG/DL (0.60-1.30); GFR ESTIMATED > 60; GLUCOSE 80 MG/DL (70-105); POTASSIUM 4.2 MMOL/L (3.6-5.0); SODIUM 141 MMOL/L (135-145); TOTAL PROTEIN 7.4 GM/DL (6.4-8.2)
[2018-05-20] MEDS: CATHETER FLUSH 10 ML SYR IV SCH (06:43)
--- NOTE | 2018-05-20 09:01 | Progress Note ---
Subjective Date Seen by Provider: May 20, 2018 Time Seen by Provider: 08:55 Subjective/Events-last exam Patient still sleeping in bed. She is arousable and does follow directions. Patient not having any abdominal pain, but just wanting to sleep. Denies any nausea vomiting fever sweats chills shortness of breath or chest pain Objective Exam Vital Signs Date Time Temp Pulse Resp B/P (MAP) Pulse Ox O2 Delivery O2 Flow Rate FiO2 05/20/18 05:00 75 99 Room Air 05/20/18 04:00 98 Room Air 05/20/18 01:00 72 98 Room Air 05/20/18 00:00 98 Room Air 05/19/18 23:00 77 98 Room Air 05/19/18 21:04 95 99 Room Air 05/19/18 20:00 99 Room Air 05/19/18 19:10 97 Room Air 05/19/18 16:30 97.6 94 16 119/88 (98) 97 Room Air 05/19/18 16:20 100 16 127/93 99 Room Air 05/19/18 15:37 93 16 127/95 (106) 99 Room Air 05/19/18 13:48 93 16 124/84 (97) 98 Room Air 05/19/18 10:51 112 18 131/63 (85) 100 Room Air I & O 05/20/18 07:00 Intake Total 50 ml Output Total 0 ml Balance 50 ml Capillary Refill : Less Than 3 Seconds General Appearance: No Apparent Distress (Lying in bed) HEENT: Other (Left conjunctivitis) Neck: Supple Respiratory: No Accessory Muscle Use, No Respiratory Distress Cardiovascular: Regular Rate, Rhythm Peripheral Pulses: 2+ Dorsalis Pedis (R), 2+ Left Dors-Pedis (L), 2+ Radial Pulses (R), 2+ Radial Pulses (L) Gastrointestinal: non tender, soft, no organomegaly; No guarding, No rebound, No tenderness Extremity: Non Tender Neurologic/Psychiatric: Other (Still fatigued but does answer questions and follows directions) Skin: Warm/Dry (Small picking sores) Lymphatic: No Adenopathy Results Lab Laboratory Tests 05/20/18 04:15: White Blood Count 7.2, Red Blood Count 4.99, Hemoglobin 13.4, Hematocrit 40, Mean Corpuscular Volume 80, Mean Corpuscular Hemoglobin 27, Mean Corpuscular Hemoglobin Concent 34, Red Cell Distribution Width 17.5H, Platelet Count 339, Mean Platelet Volume 9.9, Neutrophils (%) (Auto) 45, Lymphocytes (%) (Auto) 37, Monocytes (%) (Auto) 14H, Eosinophils (%) (Auto) 3, Basophils (%) (Auto) 1, Neutrophils # (Auto) 3.3, Lymphocytes # (Auto) 2.7, Monocytes # (Auto) 1.0, Eosinophils # (Auto) 0.2, Basophils # (Auto) 0.0, Sodium Level 141, Potassium Level 4.2, Chloride Level 107, Carbon Dioxide Level 26, Anion Gap 8, Blood Urea Nitrogen 15, Creatinine 0.91, Estimat Glomerular Filtration Rate > 60, BUN/ Creatinine Ratio 16, Glucose Level 80, Calcium Level 9.9, Corrected Calcium 9.7 , Total Bilirubin 0.7, Aspartate Amino Transf (AST/SGOT) 21, Alanine Aminotransferase (ALT/SGPT) 22, Alkaline Phosphatase 54, Total Protein 7.4, Albumin 4.2 Microbiology 05/19/18 Urine Culture - Preliminary, Resulted Sent To [facility] Assessment/Plan Assessment/Plan Assessment/Plan foreign body right colon appears to be screw. this should pass on its own. No surgical intervention. If change in physical exam or symptoms of abdominal pain would re-evaluate at that time. acute psychosis methamphetamine marijuana use Patient by physical exam still with no abdominal pain and abdomen is soft. No change from yesterday. Patient with no new complaints. No surgical intervention. If patient has change in condition would reevaluate at that time. The screw should pass on its own. Could follow with occasional abdominal x-ray as outpatient. Patient would be okay for transfer for further mental health treatment Clinical Quality Measures DVT/VTE Risk/Contraindication: Risk Factor Score Per Nursin RFS Level Per Nursing on Admit: 1=Low/No VTE PPX ANITA ROMANO DO May 20, 2018 09:01
[2018-05-20 09:30] VITALS: BP 126/87
[2018-05-20] MEDS ORDERED: CLON0.1T PO (09:32)
[2018-05-20] MEDS ORDERED: RT-ALBUINH IH (09:32)
[2018-05-20] MEDS: cefTRIAXone INJECTION 2,000 MG in NS (IVPB) 50 ML IV NR ×2 (09:57→10:05)
[2018-05-20] MEDS ORDERED: ACETAMINOPHEN 500 MG TAB (TYLENOL) ONE (10:08)
[2018-05-20] MEDS ORDERED: ACETAMINOPHEN 500 MG TAB (TYLENOL) PO ONE (10:15)
--- NOTE | 2018-05-21 12:06 | Physician Query Clarification ---
PQ-Link Manifestation-Etiology Admission/Discharge Admission Date: May 19, 2018 at 16:13 Discharge Date: May 20, 2018 at 12:38 The medical record reflects the following clinical scenario: History/Risk Factors: Methamphetamine, marijuana and benzo abuse Clinical Findings: Jumping, yelling, screaming, throwing self onto floor, concerned that this may be methamphetamine acute psychosis Treatment: Dung Question: Can you specify if the acute psychosis is due to/associated with meth induced psychosis? Please document a response below PHYSICIAN RESPONSE Manifestation due to/assoic: Clinically undetermined Explanation of clincal finding While methamphetamine use is likely a contributing factor, the patient has multiple other factors that could also contribute to her acute psychosis, including but not limited to psychosis (pt delivered female infant on 01/19/18 that was taken into DFS custody on pt's discharge from hospital), known THC use as well as ecstasy - synthetic THC or ecstasy could potentially cause acute psychosis, pt has borderline personality disorder and previous history of suicide attempts, as well as known history of IV drug abuse In responding to this query, please exercise your independent professional judgment. The purpose of this communication is to more accurately reflect the complexity of your patients condition. The fact that a question is asked does not imply that any particular answer is desired or expected. Thank you for your timely response to this clarification. Requestors name: Meghna THIS PHYSICIAN QUERY FORM IS A PERMANENT PART OF THE MEDICAL RECORD MEGHNA RYAN May 21, 2018 12:06 DANIEL SWIFT DO May 27, 2018 21:51
--- NOTE | 2018-05-27 21:34 | Discharge Summary ---
Diagnosis/Chief Complaint Date of Admission May 19, 2018 at 16:13 Date of Discharge May 20, 2018 at 12:38 Admission Diagnosis Admission Diagnosis Psychosis Polysubstance Abuse Suicidal Ideation Homelessness Tobacco Abuse Pica Borderline Personality Disorder Depression Anxiety ADHD Discharge Diagnosis Psychosis Polysubstance Abuse Suicidal Ideation Homelessness Tobacco Abuse Pica Borderline Personality Disorder Depression Anxiety ADHD Patient acutely psychotic with violent outbursts in the ED. It is also noted that she delivered a female infant on 01/19/18 at 40 1/7 wks gestation after extremely limited care; this infant was removed from her custody by the state 2 days after delivery and placed in foster care. The patient also has two other children, a 3.5 year old girl and 2.5 year old boy, that she does not have custody of either - those children live with their father's dad. Her delivery in January of this year is significant, as depression and/or psychosis could certainly be playing a role. The patient also has a long history of polysubstance abuse, specifically meth and THC, and has completed inpatient rehab in [place] in the past, in 2017. She does have a documented history of IV drug abuse. She has a previous suicide attempt by overdose, and has had multiple psychiatric hospitalizations. The patient was seen on arrival to the ICU. She is calm if left alone, but gets agitated easily, even just with physical exam or taking of vital signs. Dr. Moreno with General Surgery also came to examine the patient, as she admitted in the ED to swallowing screws, only a single small screw was noted in her right colon on xray, and the patient is without abdominal pain and her abdomen is soft and nontender on exam, without rebound or guarding. His recommendation is to repeat xray weekly to assure passage of the screw, which he feels should pass without difficulty or incident. Given that there are critically ill patients on the floor, and that the patient has required restraint by force more than once while in the ED, the decision was made to give the patient additional IM sedation so that an IV could be placed. She tolerated this well, and an IV was successfully placed by the nursing staff. The patient was placed on a precedex gtt in order for her to rest and stay safe , as well as for the safety of the staff and other patients. She was placed on telemetry, and her vital signs were stable. She was observed to be resting comfortably. I will see the patient again in the morning and we will see how she does without sedation; she has additional PRN medication available tonight if needed. 05/20 - The patient rested well overnight and did not require any additional medication. She woke up this morning to talk to her mother, was given some medication for a headache, and has been sleeping. Her precedex was turned off, and the patient remained calm without any additional medication. She was given a 1 time dose of 2 grams Rocephin IVPB for possible UTI, her culture is pending , and strongly suspect that her urine sample was contaminated. The patient woke at the time of exam, denied any pain and reported that her headache was gone; denied any pain and continued to have a soft, nontender abdomen. I have spoken with the attending physician at [facility], expressed my concern that psychosis also be included on her differential, although recognizing that the patient has many other factors as well. She has been accepted and will be transferred by the police department for further care in inpatient psychiatric facility. Chief Complaint/HPI Chief Complaint/HPI 22 year old female presented to the ED earlier today, acutely psychotic and agitated. She has a known history of methamphetamine abuse, as well as IV drug abuse with last admitted IV meth use in late October 2017 per review of clinic records. Patient with last meth use shortly prior to arrival. She was brought in by her mother after she had a knife and was threatening to harm herself or someone else; the mother took the knife from her and brought the patient to the ED. The patient was extremely agitated in the ED, eventually requiring the police department be contacted to help restrain the patient so that sedatives could safely be administered by staff. In addition to lashing out at staff, she threatened to run out in traffic and kill herself; as she was noted to be actively psychotic and suicidal, the patient was placed on an involuntary hold. She was kept in the ED for more than 8 hours, attempting to secure inpatient psychiatric placement. The patient was tentatively accepted by [facility], but they would like her to be free from methamphetamines for 24 hours prior to transfer to their facility, in order to make sure her psychosis was not due to her meth use shortly prior to arrival. The patient was initially sedated with 20 mg geodon IM; she required a second dose shortly before a call was placed requesting the patient placed in observation status until the morning when she could be transferred to a psychiatric facility. When getting the patient ready for transfer to the ICU for close monitoring, the patient removed her belly button ring when requested to by staff, but then promptly swallowed the back of the jewelry. The patient then stated she had been swallowing screws and things on occasion. The patient had an abdominal xray obtained on the way up to the ICU, and a single, small screw was noted in her right upper bowel. Dr. Moreno from surgery was consulted for clearance. The patient refuses to respond to most questions, and information is obtained from chart review, and report from the ED staff. Discharge Summary-OBS Procedures None. Consultations Dr. Moreno, General Surgery Discharge Physical Examination Allergies: Coded Allergies: escitalopram (Verified Allergy, Unknown, 05/19/18) latex (Verified Allergy, Unknown, 05/19/18) General Appearance: Cooperative, No Acute Distress HEENT: Atraumatic, EOMI, Mucous Memb Moist/[place] Respiratory: Clear to Auscultation, Normal Air Movement Cardiovascular: Regular Rate, Normal S1, Normal S2 Abdominal: Normal Bowel Sounds, Soft, No Tenderness, No Masses Extremities: No Clubbing, No Cyanosis, No Edema, Normal Pulses Skin: No Rashes, No Significant Lesion Neuro: Normal Speech, Normal Tone Hospital Course see final discharge diagnosis Labs Microbiology 05/19/18 Urine Culture - Final, Complete See Comments Sent To [facility] Discharge Condition at discharge stable Instructions to patient/family Please see electronic discharge instructions given to patient. Discharge Medications Reviewed and agree with Discharge Medication list on patient's Discharge Instruction sheet Clinical Quality Measures DVT/VTE Risk/Contraindication: Risk Factor Score Per Nursin RFS Level Per Nursing on Admit: 1=Low/No VTE PPX Copy Copies To 1: [facility]/DANIEL ROWLEY DO May 27, 2018 21:34
== END 2018-05-20 12:38 | DRG 885 ==
LOC: EDUNIT# 07:44 → ER 07:45 → ICU 16:13
PROVIDERS: ADMIT Family Medicine; ATTEND Family Medicine
DX: F23 Brief psychotic disorder (principal); R45.851 Suicidal ideations; F15.10 Other stimulant abuse, uncomplicated; F12.10 Cannabis abuse, uncomplicated; F13.10 Sedative, hypnotic or anxiolytic abuse, uncomplicated; F16.10 Hallucinogen abuse, uncomplicated; T18.4XXA Foreign body in colon, initial encounter; H10.32 Unspecified acute conjunctivitis, left eye; I10 Essential (primary) hypertension; F41.9 Anxiety disorder, unspecified; F17.210 Nicotine dependence, cigarettes, uncomplicated; J45.909 Unspecified asthma, uncomplicated; A74.9 Chlamydial infection, unspecified; F90.9 Attention-deficit hyperactivity disorder, unspecified type; F60.3 Borderline personality disorder; F50.89 Other specified eating disorder; F32.9 Major depressive disorder, single episode, unspecified; Z59.0 Homelessness; Z91.19 Patient's noncompliance with other medical treatment and regimen
CPT/HCPCS: 36415; 74018; 80053; 80306; 80320; 80329; 81000; 84703; 85025; 87088; 93005; 96372

== ENCOUNTER 2018-07-28 22:01 | Emergency (ER) | payer SELFPAY ==
[~2018-07-28 22:01] MED LIST changes: +AZIT250T12 PO; -BENZ-13 PO; +BENZ100C18 PO; +CLON0.1T PO; +CLONIDINE; +RT-ALBUINH IH
== END 2018-07-28 22:37 | disposition left against medical advice (07) ==
LOC: EDUNIT# 22:01 → ER 22:03
DX: R07.9 Chest pain, unspecified (principal); M54.2 Cervicalgia; R11.10 Vomiting, unspecified; R42 Dizziness and giddiness

== ENCOUNTER 2018-08-28 20:36 | Emergency (ER) | payer SELFPAY ==
[~2018-08-28] VITALS: Ht 154.9 cm; Wt 45.4 kg
[~2018-08-28 20:36] MED LIST changes: +METR-197 PO; -METR500T21 PO
[2018-08-28 21:26] LABS: BASOPHILS % (AUTO) 0 % (0-10); EOSINOPHILS % (AUTO) 0 % (0-10); HEMATOCRIT 40 % (35-52); HEMOGLOBIN 13.7 G/DL (11.5-16.0); LYMPHOCYTES # (AUTO) 2.6 X 10^3 (1.0-4.0); LYMPHOCYTES % (AUTO) 36 % (12-44); MEAN CORPUSCULAR HEMOGLOBIN 26 PG (25-34); MEAN CORPUSCULAR HGB CONC 34 G/DL (32-36); MEAN CORPUSCULAR VOLUME 77 FL (80-99); MEAN PLATELET VOLUME 9.9 FL (7.4-10.4); MONOCYTES # (AUTO) 0.9 X 10^3 (0.0-1.0); MONOCYTES % (AUTO) 13 % (0-12); NEUTROPHILS # (AUTO) 3.6 X 10^3 (1.8-7.8); NEUTROPHILS % (AUTO) 50 % (42-75); PLATELET COUNT 396 10^3/uL (130-400); RED BLOOD COUNT 5.22 10^6/uL (4.35-5.85); RED CELL DISTRIBUTION WIDTH 14.8 % (10.0-14.5); WHITE BLOOD COUNT 7.2 10^3/uL (4.3-11.0)
[2018-08-28] MEDS ORDERED: LACTATED RINGERS 1,000 ML IV ONE (21:30)
[2018-08-28] MEDS ORDERED: LORazepam INJ 2 MG/ML (ATIVAN) VIAL IVP ONE (21:30)
[2018-08-28 21:46] LABS: ALANINE AMINOTRANSFERASE 28 U/L (0-55); ALBUMIN 4.8 GM/DL (3.2-4.5); ALKALINE PHOSPHATASE 78 U/L (40-136); BILIRUBIN,TOTAL 0.8 MG/DL (0.1-1.0); BUN/CREATININE RATIO 17; CALCIUM 9.9 MG/DL (8.5-10.1); CARBON DIOXIDE 21 MMOL/L (21-32); CHLORIDE 103 MMOL/L (98-107); CREATININE SERUM 0.94 MG/DL (0.60-1.30); GFR ESTIMATED > 60; GLUCOSE 73 MG/DL (70-105); POTASSIUM 3.5 MMOL/L (3.6-5.0); SALICYLATE < 5.0 MG/DL (5.0-20.0); SODIUM 141 MMOL/L (135-145); TOTAL PROTEIN 8.5 GM/DL (6.4-8.2)
[2018-08-28 21:51] LABS: CLARITY,URINE CLEAR; COLOR,URINE YELLOW; GLUCOSE, URINE (UA) NEGATIVE (NEGATIVE); KETONES,URINE 4+ (NEGATIVE); LEUKOCYTE ESTERASE ,URINE NEGATIVE (NEGATIVE); NITRITE,URINE NEGATIVE (NEGATIVE); PH,URINE 5 (5-9); PROTEIN,URINE 2+ (NEGATIVE); UROBILINOGEN,URINE 1 MG/DL (NORMAL)
[2018-08-28 22:04] LABS: ACETAMINOPHEN < 10 UG/ML (10-30)
[2018-08-28 22:08] LABS: BACTERIA,URINE FEW /HPF; BILIRUBIN,URINE 1+ (NEGATIVE)
[2018-08-28 22:19] LABS: AMPHETAMINE SCREEN, URINE POSITIVE (NEGATIVE); BARBITURATE SCREEN URINE NEGATIVE (NEGATIVE); BENZODIAZEPINES SCREEN URINE NEGATIVE (NEGATIVE); CANNABINOID SCREEN, URINE POSITIVE (NEGATIVE); COCAINE SCREEN URINE NEGATIVE (NEGATIVE); METHADONE STAT NEGATIVE (NEGATIVE); METHAMPHETAMINE SCREEN URINE S POSITIVE (NEGATIVE); OPIATE SCREEN URINE NEGATIVE (NEGATIVE); OXYCODONE STAT NEGATIVE (NEGATIVE); PROPOXYPHENE STAT NEGATIVE (NEGATIVE); TRICYCLIC ANTIDEPRESSANTS SCRE NEGATIVE (NEGATIVE)
--- NOTE | 2018-08-28 22:35 | ED Psychosocial ---
General Stated Complaint: PSYCH EPISODE Allergies and Home Medications Allergies Coded Allergies: escitalopram (Verified Allergy, Unknown, 05/19/18) latex (Verified Allergy, Unknown, 05/19/18) Home Medications Albuterol Sulfate 1 Puff Puff, 2 PUFF IH Q6H PRN for SHORTNESS OF BREATH, ( Reported) 1 PUFF = 90 MCG Azithromycin 250 Mg Tablet, 250 MG PO UD TAKE 2 TABLETS ON DAY ONE THEN TAKE 1 TABLET DAILY FOR FOUR MORE DAYS Prescribed by: BEVERLY MUELLER on 06/05/18 0253 Clonidine HCl 0.1 Mg Tablet, 0.1 MG PO BID, (Reported) Past Gdywarx-Zkgjlc-Gjffyd Hx Patient Social History Alcohol Beverage of Choice: Beer, Vodka Drug of Choice: METH, POT, BENZO'S, PCP, EX Type Used: Cigarettes 2nd Hand Smoke Exposure: No Recent Foreign Travel: No Contact w/Someone Who Travel: No Recent Hopitalizations: No Immunizations Up To Date Tetanus Booster (TDap): Less than 5yrs Date of Influenza Vaccine: Jul 24, 2014 Seasonal Allergies Seasonal Allergies: No Past Medical History Surgeries: Yes (DENTAL) Respiratory: Yes Asthma Cardiac: No Hypertension Neurological: No Reproductive Disorders: No Female Reproductive Disorders: Denies Sexually Transmitted Disease: Yes (chlamydia) HIV/AIDS: No Genitourinary: No Gastrointestinal: No Musculoskeletal: No Endocrine: Yes (hypoglycemia) HEENT: No Cancer: No Psychosocial: Yes ADD/ADHD, Anxiety, Personality Disorder, Depression Integumentary: No Blood Disorders: No Adverse Reaction/Blood Tranf: No (HAS HAD A BLOOD TRANSFUSION AFTER . ) Family Medical History Patient reports no known family medical history. No Pertinent Family Hx Physical Exam Capillary Refill : Height, Weight, BMI Height: 5'2.00" Weight: 116lbs. 7.0oz. [id number]; 21.2 BMI Method:Estimated Progress/Results/Core Measures Results/Orders Lab Results Laboratory Tests Test 08/28/18 21:15 08/28/18 21:44 Range/Units White Blood Count 7.2 4.3-11.0 10^3/uL Red Blood Count 5.22 4.35-5.85 10^6/uL Hemoglobin 13.7 11.5-16.0 G/DL Hematocrit 40 35-52 % Mean Corpuscular Volume 77 L 80-99 FL Mean Corpuscular Hemoglobin 26 25-34 PG Mean Corpuscular Hemoglobin Concent 34 32-36 G/DL Red Cell Distribution Width 14.8 H 10.0-14.5 % Platelet Count 396 130-400 10^3/uL Mean Platelet Volume 9.9 7.4-10.4 FL Neutrophils (%) (Auto) 50 42-75 % Lymphocytes (%) (Auto) 36 12-44 % Monocytes (%) (Auto) 13 H 0-12 % Eosinophils (%) (Auto) 0 0-10 % Basophils (%) (Auto) 0 0-10 % Neutrophils # (Auto) 3.6 1.8-7.8 X 10^3 Lymphocytes # (Auto) 2.6 1.0-4.0 X 10^3 Monocytes # (Auto) 0.9 0.0-1.0 X 10^3 Eosinophils # (Auto) 0.0 0.0-0.3 10^3/uL Basophils # (Auto) 0.0 0.0-0.1 10^3/uL Sodium Level 141 135-145 MMOL/L Potassium Level 3.5 L 3.6-5.0 MMOL/L Chloride Level 103 98-107 MMOL/L Carbon Dioxide Level 21 21-32 MMOL/L Anion Gap 17 H 5-14 MMOL/L Blood Urea Nitrogen 16 7-18 MG/DL Creatinine 0.94 0.60-1.30 MG/DL Estimat Glomerular Filtration Rate > 60 BUN/Creatinine Ratio 17 Glucose Level 73 70-105 MG/DL Calcium Level 9.9 8.5-10.1 MG/DL Corrected Calcium 8.5-10.1 MG/DL Total Bilirubin 0.8 0.1-1.0 MG/DL Aspartate Amino Transf (AST/SGOT) 39 H 5-34 U/L Alanine Aminotransferase (ALT/SGPT) 28 0-55 U/L Alkaline Phosphatase 78 40-136 U/L Total Protein 8.5 H 6.4-8.2 GM/DL Albumin 4.8 H 3.2-4.5 GM/DL TSH [place] Testing 0.90 0.35-4.94 UIU/ML Serum Test, Qualitative NEGATIVE NEGATIVE Salicylates Level < 5.0 L 5.0-20.0 MG/DL Acetaminophen Level < 10 L 10-30 UG/ML Serum Alcohol < 10 <10 MG/DL Urine Color YELLOW Urine Clarity CLEAR Urine pH 5 5-9 Urine Specific [place] 1.025 H 1.016-1.022 Urine Protein 2+ H NEGATIVE Urine Glucose (UA) NEGATIVE NEGATIVE Urine Ketones 4+ H NEGATIVE Urine Nitrite NEGATIVE NEGATIVE Urine Bilirubin 1+ H NEGATIVE Urine Urobilinogen 1 NORMAL MG/DL Urine Leukocyte Esterase NEGATIVE NEGATIVE Urine RBC (Auto) NEGATIVE NEGATIVE Urine RBC NONE /HPF Urine WBC 2-5 /HPF Urine Squamous Epithelial Cells 10-25 H /HPF Urine Crystals NONE /LPF Urine Bacteria FEW H /HPF Urine Casts NONE /LPF Urine Mucus LARGE H /LPF Urine Culture Indicated NO Urine Opiates Screen NEGATIVE NEGATIVE Urine Oxycodone Screen NEGATIVE NEGATIVE Urine Methadone Screen NEGATIVE NEGATIVE Urine Propoxyphene Screen NEGATIVE NEGATIVE Urine Barbiturates Screen NEGATIVE NEGATIVE Ur Tricyclic Antidepressants Screen NEGATIVE NEGATIVE Urine Phencyclidine Screen NEGATIVE NEGATIVE Urine Amphetamines Screen POSITIVE H NEGATIVE Urine Methamphetamines Screen POSITIVE H NEGATIVE Urine Benzodiazepines Screen NEGATIVE NEGATIVE Urine Cocaine Screen NEGATIVE NEGATIVE Urine Cannabinoids Screen POSITIVE H NEGATIVE My Orders Orders - ANNIE,YOLY K DO Ua Culture If Indicated (08/28/18 20:49) Thyroid Analyzer (08/28/18 20:49) Drug Screen Stat (Urine) (08/28/18 20:49) Cbc With Automated Diff (08/28/18 20:49) Comprehensive Metabolic Panel (08/28/18 20:49) Alcohol (08/28/18 20:49) Acetaminophen (08/28/18 20:49) Salicylate (08/28/18 20:49) Ekg Tracing (08/28/18 20:49) Monitor-Rhythm Ecg Trace Only (08/28/18 20:49) Hcg,Qualitative Serum (08/28/18 20:49) Saline Lock/Iv-Start (08/28/18 21:30) Lactated Ringers (Lr 1000 Ml Iv Solution (08/28/18 21:30) Lorazepam Injection (Ativan Injection) (08/28/18 21:30) Medications Given in ED Current Medications Medications Dose Ordered Sig/Sachin Route Start Time Stop Time Status Last Admin Dose Admin Lactated Ringer's 1,000 ml @ 0 mls/hr Q0M ONCE IV 08/28/18 21:30 08/28/18 21:32 DC 08/28/18 22:04 1,000 MLS/HR Lorazepam 1 mg ONCE ONCE IVP 08/28/18 21:30 08/28/18 21:32 DC 08/28/18 22:03 1 MG Departure Communication (Admissions) 2222--CALLED [facility], HAVE FEMALE PSYCH BED. PAGING PSYCHIATRIST [employer], DR. PETER DEUTSCH. Impression Primary Impression: Depression with suicidal ideation Additional Impressions: Illicit drug use Methamphetamine addiction Departure-Patient Inst. Referrals: [facility] (PCP/Family) Primary Care Physician YOLY VALENCIA DO Aug 28, 2018 22:35
[2018-08-28] MEDS ORDERED: OLANZapine 5 MG ODT (ZyPREXA ZYDIS) ONE (22:44)
[2018-08-28] MEDS ORDERED: OLANZapine 5 MG ODT (ZyPREXA ZYDIS) PO ONE (22:45)
[2018-08-28 23:30] VITALS: BP 125/94
== END 2018-08-28 23:30 ==
LOC: EDUNIT# 20:36 → ER 20:38
DX: F32.9 Major depressive disorder, single episode, unspecified (principal); R45.851 Suicidal ideations; J45.909 Unspecified asthma, uncomplicated; F15.20 Other stimulant dependence, uncomplicated; I10 Essential (primary) hypertension; F90.9 Attention-deficit hyperactivity disorder, unspecified type; F41.9 Anxiety disorder, unspecified; F12.10 Cannabis abuse, uncomplicated; Z91.040 Latex allergy status; Z86.19 Personal history of other infectious and parasitic diseases; Z88.8 Allergy status to other drugs, medicaments and biological substances; Z79.51 Long term (current) use of inhaled steroids
CPT/HCPCS: 36415; 80053; 80306; 80320; 80329; 81000; 84443; 84703; 85025; 93005; 93041

== ENCOUNTER → 2018-09-07 | Emergency (ER) | payer SELFPAY | END | disposition left against medical advice (07) | LOC: EDUNIT# 19:14 → ER 19:16 | DX: M25.511 Pain in right shoulder (principal); V49.9XXA Car occupant (driver) (passenger) injured in unspecified traffic accident, initial encounter ==

== ENCOUNTER 2018-09-27 19:25 | Emergency (ER) | payer SELFPAY | END 2018-09-27 19:52 | disposition left against medical advice (07) | LOC: EDUNIT# 19:25 → ER 19:37 | DX: O26.899 Other specified pregnancy related conditions, unspecified trimester (principal); R55 Syncope and collapse; R03.0 Elevated blood-pressure reading, without diagnosis of hypertension; Z3A.00 Weeks of gestation of pregnancy not specified ==

== ENCOUNTER 2019-03-31 11:53 | Emergency (ER) | payer SELFPAY ==
[~2019-03-31] VITALS: Ht 157.5 cm; Wt 54.4 kg
[~2019-03-31 11:53] MED LIST changes: -NS IV 1000 ML 0 ML ONE; -NS IV 1000 ML 1,000 ML IV SCH; -PROPRANOLOL 20 MG (INDERAL) TABLET PO ONE
[2019-03-31] MEDS ORDERED: IOHEXOL 350 MG/ML 100 ML (OMNIPAQUE 350) VIAL IV ONE (12:15)
[2019-03-31] MEDS ORDERED: NS 100 ML (IVPB) BAG IV ONE (12:15)
[2019-03-31] MEDS ORDERED: HOLD METFORMIN - RECEIVED CONTRAST 20 ML VIAL IV SCH (12:15)
--- NOTE | 2019-03-31 12:18 | ED General ---
General Stated Complaint: ANXIETY Source of Information: Patient Exam Limitations: No Limitations History of Present Illness Date Seen by Provider: Mar 31, 2019 Time Seen by Provider: 12:17 Initial Comments To ER with reports of palpitations and chest pain. She was seen earlier this morning for the same, had an elevated d-dimer. She left AGAINST MEDICAL ADVICE with her IV still in place, police were called, IV was removed prior to return to the emergency room Timing/Duration: 1-2 Days Severity: Moderate Associated Systoms: Denies Symptoms Allergies and Home Medications Allergies Coded Allergies: escitalopram (Verified Allergy, Unknown, 05/19/18) latex (Verified Allergy, Unknown, 05/19/18) Home Medications Albuterol Sulfate 1 Puff Puff, 2 PUFF IH Q6H PRN for SHORTNESS OF BREATH, (Reported) 1 PUFF = 90 MCG Azithromycin 250 Mg Tablet, 250 MG PO UD TAKE 2 TABLETS ON DAY ONE THEN TAKE 1 TABLET DAILY FOR FOUR MORE DAYS Prescribed by: BEVERLY MUELLER on 06/05/18 0253 Clonidine HCl 0.1 Mg Tablet, 0.1 MG PO BID, (Reported) Patient Home Medication List Home Medication List Reviewed: Yes Review of Systems Review of Systems Constitutional: see HPI EENTM: see HPI Respiratory: no symptoms reported Cardiovascular: see HPI, chest pain, palpitations Genitourinary: no symptoms reported Musculoskeletal: no symptoms reported Skin: no symptoms reported Psychiatric/Neurological: No Symptoms Reported Hematologic/Lymphatic: No Symptoms Reported Past Rsxgdbg-Kxuqux-Iqbmno Hx Patient Social History Alcohol Beverage of Choice: Vodka Drug of Choice: METH, POT, BENZO'S, PCP, EX Type Used: Cigarettes 2nd Hand Smoke Exposure: Yes Recent Hopitalizations: No Immunizations Up To Date Tetanus Booster (TDap): Less than 5yrs Date of Influenza Vaccine: Jul 24, 2014 Seasonal Allergies Seasonal Allergies: No Past Medical History Surgeries: Yes (DENTAL) Respiratory: Yes Asthma Cardiac: Yes Hypertension Neurological: No Reproductive Disorders: No Female Reproductive Disorders: Denies Sexually Transmitted Disease: Yes (CHLAMYDIA) HIV/AIDS: No Genitourinary: No Gastrointestinal: No Musculoskeletal: No Endocrine: Yes (hypoglycemia) HEENT: No Cancer: No Psychosocial: Yes (OVERDOSES; ADMITTED TO [place] 05/28/18. ) ADD/ADHD, Anxiety, Suicide Attempts, Personality Disorder, Depression Integumentary: No Blood Disorders: No Adverse Reaction/Blood Tranf: No (HAS HAD A BLOOD TRANSFUSION AFTER . ) Family Medical History Patient reports no known family medical history. No Pertinent Family Hx Physical Exam Vital Signs Vital Signs - First Documented 03/31/19 12:09 Temp 97.5 Pulse 91 Resp 18 B/P (MAP) 144/99 (114) Pulse Ox 100 O2 Delivery Room Air Capillary Refill : Height, Weight, BMI Height: 5'2.00" Weight: 125lbs. 0.0oz. 56.410933rm; 22.9 BMI Method:Estimated General Appearance: No Apparent Distress, WD/WN, Other (just, unable to sit still, appears to be in the influence of stimulants. She has multiple sores on a araceli and legs face.) Neck: Full Range of Motion, Normal Inspection Respiratory: No Accessory Muscle Use, No Respiratory Distress Cardiovascular: Tachycardia Gastrointestinal: Non Tender, Soft Extremity: Normal Capillary Refill, Normal Inspection Neurologic/Psychiatric: Alert, Oriented x3 Skin: Normal Color, Warm/Dry Progress/Results/Core Measures Suspected Sepsis SIRS Temperature: Pulse: Respiratory Rate: Blood Pressure / Mean: Laboratory Tests 03/31/19 12:15: Creatinine 0.74, Total Bilirubin 0.4 Results/Orders Lab Results Laboratory Tests Test 03/31/19 12:15 Range/Units Sodium Level 141 135-145 MMOL/L Potassium Level 3.6 3.6-5.0 MMOL/L Chloride Level 105 98-107 MMOL/L Carbon Dioxide Level 23 21-32 MMOL/L Anion Gap 13 5-14 MMOL/L Blood Urea Nitrogen 12 7-18 MG/DL Creatinine 0.74 0.60-1.30 MG/DL Estimat Glomerular Filtration Rate > 60 BUN/Creatinine Ratio 16 Glucose Level 75 70-105 MG/DL Calcium Level 9.0 8.5-10.1 MG/DL Corrected Calcium 8.8 8.5-10.1 MG/DL Total Bilirubin 0.4 0.1-1.0 MG/DL Aspartate Amino Transf (AST/SGOT) 166 H 5-34 U/L Alanine Aminotransferase (ALT/SGPT) 114 H 0-55 U/L Alkaline Phosphatase 73 40-136 U/L Troponin I < 0.028 <0.028 NG/ML Total Protein 7.2 6.4-8.2 GM/DL Albumin 4.3 3.2-4.5 GM/DL My Orders Orders - TRACY RAZA APRN Ct Angio Chest W (03/31/19 11:57) Iohexol Injection (Omnipaque 350 Mg/Ml 1 (03/31/19 12:15) Received Contrast (Hold Metformin- Contr (03/31/19 12:15) Ns (Ivpb) (Sodium Chloride 0.9% Ivpb Bag (03/31/19 12:15) Comprehensive Metabolic Panel (03/31/19 12:18) Troponin I (03/31/19 12:18) Propranolol Tablet (Inderal Tablet) (03/31/19 12:30) Medications Given in ED Current Medications Medications Dose Ordered Sig/Sachin Route Start Time Stop Time Status Last Admin Dose Admin Propranolol HCl 10 mg ONCE ONCE PO 03/31/19 12:30 03/31/19 12:31 DC 03/31/19 13:03 10 MG Vital Signs/I&O 03/31/19 12:09 Temp 97.5 Pulse 91 Resp 18 B/P (MAP) 144/99 (114) Pulse Ox 100 O2 Delivery Room Air Capillary Refill : Departure Impression Primary Impression: Palpitations Disposition: HOME, SELF-CARE Condition: Stable Departure-Patient Inst. Decision time for Depature: 13:16 Referrals: [facility] (PCP/Family) Primary Care Physician Patient Instructions: Palpitations (DC) TRACY RAZA APRN Mar 31, 2019 12:18
[2019-03-31] MEDS ORDERED: PROPRANOLOL 20 MG (INDERAL) TABLET PO ONE ×2 (12:30→12:45)
[2019-03-31 13:01] LABS: CARBON DIOXIDE 23 MMOL/L (21-32); CHLORIDE 105 MMOL/L (98-107); POTASSIUM 3.6 MMOL/L (3.6-5.0); SODIUM 141 MMOL/L (135-145)
[2019-03-31 13:03] LABS: ALANINE AMINOTRANSFERASE 114 U/L (0-55); ALKALINE PHOSPHATASE 73 U/L (40-136); BILIRUBIN,TOTAL 0.4 MG/DL (0.1-1.0); BUN/CREATININE RATIO 16; CREATININE SERUM 0.74 MG/DL (0.60-1.30); GFR ESTIMATED > 60; GLUCOSE 75 MG/DL (70-105); TOTAL PROTEIN 7.2 GM/DL (6.4-8.2)
[2019-03-31 13:04] LABS: ALBUMIN 4.3 GM/DL (3.2-4.5)
--- NOTE | 2019-03-31 13:09 | Diagnostic Imaging Report ---
PROCEDURE: CT angiography of the chest with contrast. TECHNIQUE: Multiple contiguous axial images were obtained through the chest after uneventful bolus administration of intravenous contrast. 2D reconstructed CTA MIP acquisitions were also performed. Auto Exposure Controls were utilized during the CT exam to meet ALARA standards for radiation dose reduction. INDICATION: Dizziness and tachycardia. FINDINGS: Evaluation of the pulmonary arterial system is without evidence of thromboembolism. No filling defects are seen within the central, lobar, or segmental branches. The thoracic aorta is normal caliber. There is no dissection. No pericardial or pleural fluid is identified. The lungs are clear. No infiltrates are seen. Upper abdomen does show diffuse low density throughout the liver consistent with hepatic steatosis. IMPRESSION: 1. No evidence of pulmonary embolism or thoracic aortic dissection. 2. Hepatic steatosis. Dictated by: Dictated on workstation # [id number]
[2019-03-31 13:22] VITALS: BP 138/101
[2019-03-31 14:07] LABS: BASOPHILS % (AUTO) 1 % (0-10); EOSINOPHILS # (AUTO) 0.1 10^3/uL (0.0-0.3); EOSINOPHILS % (AUTO) 3 % (0-10); HEMATOCRIT 33 % (35-52); HEMOGLOBIN 10.7 G/DL (11.5-16.0); LYMPHOCYTES # (AUTO) 1.3 X 10^3 (1.0-4.0); LYMPHOCYTES % (AUTO) 28 % (12-44); MEAN CORPUSCULAR HEMOGLOBIN 28 PG (25-34); MEAN CORPUSCULAR HGB CONC 33 G/DL (32-36); MEAN CORPUSCULAR VOLUME 86 FL (80-99); MEAN PLATELET VOLUME 9.9 FL (7.4-10.4); MONOCYTES # (AUTO) 0.5 X 10^3 (0.0-1.0); MONOCYTES % (AUTO) 11 % (0-12); NEUTROPHILS # (AUTO) 2.8 X 10^3 (1.8-7.8); NEUTROPHILS % (AUTO) 58 % (42-75); PLATELET COUNT 183 10^3/uL (130-400); RED CELL DISTRIBUTION WIDTH 15.2 % (10.0-14.5); WHITE BLOOD COUNT 4.8 10^3/uL (4.3-11.0)
[2019-03-31 14:22] LABS: BILIRUBIN,URINE NEGATIVE (NEGATIVE); CLARITY,URINE CLEAR; COLOR,URINE YELLOW; GLUCOSE, URINE (UA) NEGATIVE (NEGATIVE); KETONES,URINE NEGATIVE (NEGATIVE); LEUKOCYTE ESTERASE ,URINE NEGATIVE (NEGATIVE); NITRITE,URINE NEGATIVE (NEGATIVE); PH,URINE 6 (5-9); PROTEIN,URINE 1+ (NEGATIVE); UROBILINOGEN,URINE NORMAL (NORMAL)
[2019-03-31 14:23] LABS: BACTERIA,URINE NEGATIVE /HPF
== END 2019-03-31 13:22 | disposition home or self-care (01) ==
LOC: EDUNIT# 11:53 → ER 11:54
DX: R00.2 Palpitations (principal); F41.9 Anxiety disorder, unspecified; J45.909 Unspecified asthma, uncomplicated; I10 Essential (primary) hypertension; F90.9 Attention-deficit hyperactivity disorder, unspecified type; F60.9 Personality disorder, unspecified; F32.9 Major depressive disorder, single episode, unspecified; Z86.19 Personal history of other infectious and parasitic diseases; Z91.040 Latex allergy status; Z91.5 Personal history of self-harm; Z88.8 Allergy status to other drugs, medicaments and biological substances; Z77.22 Contact with and (suspected) exposure to environmental tobacco smoke (acute) (chronic)
CPT/HCPCS: 36415; 71275; 80053; 81000; 84484; 85025; 85379

== ENCOUNTER → 2019-03-31 | Emergency (ER) | payer SELFPAY ==
[~2019-03-31] VITALS: Ht 157.5 cm; Wt 56.7 kg
[~2019-03-31] MED LIST changes: +METR-145 PO; -METR-197 PO; +NS IV 1000 ML 0 ML ONE; +NS IV 1000 ML 1,000 ML IV SCH; +PROPRANOLOL 20 MG (INDERAL) TABLET PO ONE
[2019-03-31 10:22] VITALS: BP 113/94
--- NOTE | 2019-03-31 10:22 | NUR ---
PATIENT AND MALE WAS SEEN LEAVING UP STAFF AT [facility] [employer] [employer] IV REMAINED IN. CALLED [facility] AND INFORMED THEM TO NOTIFY HER TO COME BACK OR REMOVE IV .
== END | disposition home or self-care (01) ==
LOC: ER 09:46 → EDUNIT# 10:22 → ER 10:23
DX: R07.9 Chest pain, unspecified (principal); F41.9 Anxiety disorder, unspecified; F17.210 Nicotine dependence, cigarettes, uncomplicated

== ENCOUNTER 2019-05-06 14:09 | Emergency (ER) | payer SELFPAY ==
[~2019-05-06] VITALS: Ht 157.5 cm; Wt 60.4 kg
[2019-05-06 14:23] VITALS: BP 117/80
== END 2019-05-06 15:13 | disposition left against medical advice (07) ==
LOC: EDUNIT# 14:09 → ER 14:10
DX: R42 Dizziness and giddiness (principal); R53.83 Other fatigue; F29 Unspecified psychosis not due to a substance or known physiological condition
CPT/HCPCS: 99281

== ENCOUNTER 2019-05-12 02:51 | Emergency (ER) | payer OTHER ==
[~2019-05-12] VITALS: Ht 157.5 cm; Wt 56.7 kg
[2019-05-12] MEDS ORDERED: ASPIRIN 81 MG CHEW (CHILDREN'S ASA) PO ONE (03:45)
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
[2019-05-12 03:50] LABS: BASOPHILS # (AUTO) 0.1 10^3/uL (0.0-0.1); BASOPHILS % (AUTO) 1 % (0-10); EOSINOPHILS # (AUTO) 0.1 10^3/uL (0.0-0.3); EOSINOPHILS % (AUTO) 2 % (0-10); HEMATOCRIT 36 % (35-52); HEMOGLOBIN 11.6 G/DL (11.5-16.0); LYMPHOCYTES # (AUTO) 2.3 X 10^3 (1.0-4.0); LYMPHOCYTES % (AUTO) 35 % (12-44); MEAN CORPUSCULAR HEMOGLOBIN 26 PG (25-34); MEAN CORPUSCULAR HGB CONC 32 G/DL (32-36); MEAN CORPUSCULAR VOLUME 79 FL (80-99); MEAN PLATELET VOLUME 9.6 FL (7.4-10.4); MONOCYTES # (AUTO) 0.9 X 10^3 (0.0-1.0); MONOCYTES % (AUTO) 13 % (0-12); NEUTROPHILS # (AUTO) 3.2 X 10^3 (1.8-7.8); NEUTROPHILS % (AUTO) 49 % (42-75); PLATELET COUNT 244 10^3/uL (130-400); RED CELL DISTRIBUTION WIDTH 14.8 % (10.0-14.5); WHITE BLOOD COUNT 6.5 10^3/uL (4.3-11.0)
[2019-05-12] MEDS ORDERED: FOLIC ACID 1 MG TAB PO ONE (04:00)
[2019-05-12] MEDS ORDERED: THIAMINE 100 MG (VITAMIN B-1) TAB PO ONE (04:00)
[2019-05-12 04:11] LABS: INR 0.9 (0.8-1.4); PROTHROMBIN TIME PATIENT 12.8 SEC (12.2-14.7)
[2019-05-12 04:16] LABS: ALANINE AMINOTRANSFERASE 96 U/L (0-55); ALBUMIN 4.4 GM/DL (3.2-4.5); ALKALINE PHOSPHATASE 56 U/L (40-136); BILIRUBIN,TOTAL 0.2 MG/DL (0.1-1.0); BUN/CREATININE RATIO 18; CALCIUM 9.2 MG/DL (8.5-10.1); CARBON DIOXIDE 18 MMOL/L (21-32); CHLORIDE 105 MMOL/L (98-107); CREATININE SERUM 0.73 MG/DL (0.60-1.30); GFR ESTIMATED > 60; GLUCOSE 83 MG/DL (70-105); LIPASE 16 U/L (8-78); MAGNESIUM 1.7 MG/DL (1.8-2.4); POTASSIUM 3.8 MMOL/L (3.6-5.0); SODIUM 140 MMOL/L (135-145); TOTAL PROTEIN 7.4 GM/DL (6.4-8.2)
[2019-05-12] MEDS ORDERED: NITROGLYCERIN 0.4 MG SL TABS BTL 25'S SL PRN (04:45)
[2019-05-12] MEDS ORDERED: FAMOTIDINE 20 MG (PEPCID) TABLET PO STA (04:51)
[2019-05-12] MEDS ORDERED: LIDOCAINE 2% VISCOUS 15 ML UDC PO ONE (05:00)
[2019-05-12] MEDS ORDERED: ANTACID SUSP 30 ML UDC (MYLANTA) PO ONE (05:00)
[2019-05-12 05:09] VITALS: BP 114/80
--- NOTE | 2019-05-12 05:20 | NUR ---
IN ROOM TO DRAW PATIENT'S REPEAT TROPONIN. PATIENT IS ASKED WHICH ARM IS BEST FOR THE BLOOD DRAW AND SHE INDICATES HER RIGHT. THIS RN GETS READY TO INSERT THE NEEDLE INTO PATIENT S ARM SHE JERKS HER ARM BACK AND STARTS SAYING "YOU WERE GOING TO STICK THAT RIGHT WHERE SHE ANNABELLE MY BLOOD EARLIER" THISS RN EXPLAINED I WAS GOING IN THE SAME VINCENT BUT HIGHER ON HER ARM. PATIENT COVERED HER ARM WITH HER OPPOSITE HAND AND WITHDREW. I ASKED IF SHE WOULD LIKE SOMEONE ELS TO DRAW HER LAB SHE SAID YES. THIS RN ASKED EVER TO COME AND DRAW THE PATIENTS LAB.
[2019-05-12 06:18] VITALS: BP 114/80
--- NOTE | 2019-05-12 06:23 | Diagnostic Imaging Report ---
INDICATION: Tachycardia. Portable chest. FINDINGS: Lungs are well-aerated and clear. Heart is not enlarged. No pulmonary edema. No pneumothorax or pleural effusion. No bony abnormalities. IMPRESSION: Normal portable chest. Dictated by: Dictated on workstation # [id number]
[2019-05-13] MEDS ORDERED: SUCR1TAB36 PO (04:31)
[2019-05-13] MEDS ORDERED: PANT40TA3 PO (04:31)
== END 2019-05-12 06:25 | disposition home or self-care (01) ==
LOC: EDUNIT# 02:51 → ER 02:53
DX: F41.0 Panic disorder [episodic paroxysmal anxiety] (principal); I10 Essential (primary) hypertension; F90.9 Attention-deficit hyperactivity disorder, unspecified type; F32.9 Major depressive disorder, single episode, unspecified; F60.9 Personality disorder, unspecified; J45.909 Unspecified asthma, uncomplicated; F17.210 Nicotine dependence, cigarettes, uncomplicated; F12.10 Cannabis abuse, uncomplicated; F16.10 Hallucinogen abuse, uncomplicated; F13.10 Sedative, hypnotic or anxiolytic abuse, uncomplicated; F15.10 Other stimulant abuse, uncomplicated; Z82.49 Family history of ischemic heart disease and other diseases of the circulatory system; Z91.040 Latex allergy status; Z91.5 Personal history of self-harm; Z88.8 Allergy status to other drugs, medicaments and biological substances
CPT/HCPCS: 36415; 71045; 80053; 80320; 83690; 83735; 83874; 83880; 84484; 84703; 85025; 85379; 85610; 85730; 93005

== ENCOUNTER 2019-05-12 22:00 | Emergency (ER) | payer SELFPAY ==
[~2019-05-12] VITALS: Ht 160 cm; Wt 58.5 kg
[2019-05-12 22:00] VITALS: BP 129/96
[~2019-05-12 22:00] MED LIST changes: +RANI-613 PO; -RANI150T46 PO
[2019-05-12] MEDS ORDERED: LACTATED RINGERS 1,000 ML IV ONE (22:14)
[2019-05-12 22:20] LABS: BASOPHILS % (AUTO) 1 % (0-10); EOSINOPHILS # (AUTO) 0.1 10^3/uL (0.0-0.3); EOSINOPHILS % (AUTO) 1 % (0-10); HEMATOCRIT 36 % (35-52); HEMOGLOBIN 11.5 G/DL (11.5-16.0); LYMPHOCYTES % (AUTO) 36 % (12-44); MEAN CORPUSCULAR HEMOGLOBIN 25 PG (25-34); MEAN CORPUSCULAR HGB CONC 32 G/DL (32-36); MEAN CORPUSCULAR VOLUME 79 FL (80-99); MEAN PLATELET VOLUME 9.8 FL (7.4-10.4); MONOCYTES # (AUTO) 0.8 X 10^3 (0.0-1.0); MONOCYTES % (AUTO) 15 % (0-12); NEUTROPHILS # (AUTO) 2.6 X 10^3 (1.8-7.8); NEUTROPHILS % (AUTO) 47 % (42-75); PLATELET COUNT 248 10^3/uL (130-400); RED CELL DISTRIBUTION WIDTH 14.9 % (10.0-14.5); WHITE BLOOD COUNT 5.5 10^3/uL (4.3-11.0)
--- NOTE | 2019-05-12 22:20 | NUR ---
Pt states, "I don't like being tied to all these cords, i'm leaving." Pt signed AMA paper work @ 2220. Reviewed risks and benefits and pt verbalized understanding. Pt amb out of ED care w/o difficulty. a&ox4.
[2019-05-12] MEDS ORDERED: THIAMINE 100 MG (VITAMIN B-1) TAB PO ONE (22:30)
[2019-05-12] MEDS ORDERED: FOLIC ACID 1 MG TAB PO ONE (22:30)
--- NOTE | 2019-05-12 22:36 | ED Psychosocial ---
General Chief Complaint: Substance Abuse Stated Complaint: ANXIETY Source: patient, EMS Exam Limitations: no limitations History of Present Illness Date Seen by Provider: May 12, 2019 Time Seen by Provider: 22:19 Initial Comments Patient presents to ER by EMS with chief complaint of feeling sad and having chest pain concerned she might be having a heart attack. She is known to this provider and was seen this morning thoroughly worked up and sent home. She had an appointment with her primary care doctor. For this provider to get in the room to take a history the patient had an EKG and decided she did not like having on the wires on her and did not want to be tied up so she left AMA. EMS is been drinking today. She drinks about a pint of liquor daily. She denied suicidal ideation to EMS and nursing staff. Allergies and Home Medications Allergies Coded Allergies: escitalopram (Verified Allergy, Unknown, 05/19/18) latex (Verified Allergy, Unknown, 05/19/18) Home Medications Albuterol Sulfate 1 Puff Puff, 2 PUFF IH Q6H PRN for SHORTNESS OF BREATH, (Reported) 1 PUFF = 90 MCG Azithromycin 250 Mg Tablet, 250 MG PO UD TAKE 2 TABLETS ON DAY ONE THEN TAKE 1 TABLET DAILY FOR FOUR MORE DAYS Prescribed by: BEVERYL MUELLER on 06/05/18 0253 Clonidine HCl 0.1 Mg Tablet, 0.1 MG PO BID, (Reported) Patient Home Medication List Home Medication List Reviewed: Yes Review of Systems Constitutional: see HPI (unable to take a review of systems as the patient went AMA before the provider could take a history.) Past Miqvxwd-Cegpij-Dcvgjv Hx Patient Social History Alcohol Beverage of Choice: Vodka Drug of Choice: METH, THC, BENZO'S, PCP, ECSTASY, OTHERS. Type Used: Cigarettes 2nd Hand Smoke Exposure: Yes Recent Foreign Travel: No Contact w/Someone Who Travel: No Recent Hopitalizations: No Immunizations Up To Date Tetanus Booster (TDap): Less than 5yrs Date of Influenza Vaccine: Jul 24, 2014 Seasonal Allergies Seasonal Allergies: No Past Medical History Surgeries: Yes (DENTAL) Respiratory: Yes Asthma Cardiac: Yes Hypertension Neurological: No Reproductive Disorders: No Female Reproductive Disorders: Denies Sexually Transmitted Disease: Yes (CHLAMYDIA) HIV/AIDS: No Genitourinary: No Gastrointestinal: No Musculoskeletal: No Endocrine: Yes (hypoglycemia) HEENT: No Cancer: No Psychosocial: Yes (OVERDOSES; ADMITTED TO [facility] 05/28/18. ) ADD/ADHD, Anxiety, Suicide Attempts, Personality Disorder, Depression Integumentary: No Blood Disorders: No Adverse Reaction/Blood Tranf: No (HAS HAD A BLOOD TRANSFUSION AFTER . ) Family Medical History Patient reports no known family medical history. No Pertinent Family Hx Physical Exam Capillary Refill : Height, Weight, BMI Height: 5'2.00" Weight: 125lbs. 3.0oz. 56.255514kb; 22.9 BMI Method:Stated General Appearance: WD/WN, no apparent distress Neurologic/Psychiatric: alert, normal mood/affect, oriented x 3 (950) Behavior/Eye Contact: cooperative, good eye contact Thoughts/Hallucinations: other (minimal cancer questions for me since that P Cano her name of the abdomen) Progress/Results/Core Measures Results/Orders Lab Results Laboratory Tests Test 05/12/19 22:10 Range/Units White Blood Count 5.5 4.3-11.0 10^3/uL Red Blood Count 4.61 4.35-5.85 10^6/uL Hemoglobin 11.5 11.5-16.0 G/DL Hematocrit 36 35-52 % Mean Corpuscular Volume 79 L 80-99 FL Mean Corpuscular Hemoglobin 25 25-34 PG Mean Corpuscular Hemoglobin Concent 32 32-36 G/DL Red Cell Distribution Width 14.9 H 10.0-14.5 % Platelet Count 248 130-400 10^3/uL Mean Platelet Volume 9.8 7.4-10.4 FL Neutrophils (%) (Auto) 47 42-75 % Lymphocytes (%) (Auto) 36 12-44 % Monocytes (%) (Auto) 15 H 0-12 % Eosinophils (%) (Auto) 1 0-10 % Basophils (%) (Auto) 1 0-10 % Neutrophils # (Auto) 2.6 1.8-7.8 X 10^3 Lymphocytes # (Auto) 2.0 1.0-4.0 X 10^3 Monocytes # (Auto) 0.8 0.0-1.0 X 10^3 Eosinophils # (Auto) 0.1 0.0-0.3 10^3/uL Basophils # (Auto) 0.0 0.0-0.1 10^3/uL My Orders Orders - BEVERLY MUELLER Ua Culture If Indicated (05/12/19 22:14) Cbc With Automated Diff (05/12/19 22:14) Comprehensive Metabolic Panel (05/12/19 22:14) Alcohol (05/12/19 22:14) Drug Screen Stat (Urine) (05/12/19 22:14) Acetaminophen (05/12/19 22:14) Salicylate (05/12/19 22:14) Ekg Tracing (05/12/19 22:14) Ed Iv/Invasive Line Start (05/12/19 22:14) Ed Iv/Invasive Line Start (05/12/19 22:14) Lactated Ringers (Lr 1000 Ml Iv Solution (05/12/19 22:14) Thiamine Tablet (Vitamin B-1 Tablet) (05/12/19 22:30) Folic Acid Tablet (Folic Acid Tablet) (05/12/19 22:30) Troponin I (05/12/19 22:17) Progress Progress Note : Time: 22:34 Progress Note Labs to include troponin, EKG, urinalysis, urine drug screen, magnesium were ordered. Thiamine folate by mouth were ordered. EKG was ordered and reviewed. Patient went AMA prior to allowing this provider to take a history. Departure Impression Primary Impression: ALCOHOL DEPENDENCE WITH ALCOHOL-INDUCED ANXIETY DISORDER Additional Impressions: Depression Qualified Codes: F32.9 - Major depressive disorder, single episode, unspecified Chest pain Qualified Codes: R07.9 - Chest pain, unspecified Disposition: 07 AGAINST MEDICAL ADVICE Condition: Against Medical Advice Departure-Patient Inst. Decision time for Depature: 22:20 Referrals: [facility] (PCP) Primary Care Physician Patient Instructions: ALCOHOL AND SUBSTANCE ABUSE Add. Discharge Instructions: Please keep your follow-up appointments with primary care. All discharge instructions reviewed with patient and/or family. Voiced understanding. BEVERLY MUELLER May 12, 2019 22:36
[2019-05-12 22:38] LABS: ALANINE AMINOTRANSFERASE 98 U/L (0-55); ALBUMIN 4.3 GM/DL (3.2-4.5); ALKALINE PHOSPHATASE 52 U/L (40-136); BILIRUBIN,TOTAL 0.2 MG/DL (0.1-1.0); BUN/CREATININE RATIO 14; CALCIUM 9.5 MG/DL (8.5-10.1); CARBON DIOXIDE 20 MMOL/L (21-32); CHLORIDE 104 MMOL/L (98-107); CREATININE SERUM 0.78 MG/DL (0.60-1.30); GFR ESTIMATED > 60; GLUCOSE 79 MG/DL (70-105); POTASSIUM 3.9 MMOL/L (3.6-5.0); SALICYLATE < 5.0 MG/DL (5.0-20.0); SODIUM 140 MMOL/L (135-145); TOTAL PROTEIN 7.2 GM/DL (6.4-8.2)
[2019-05-12 22:39] LABS: ACETAMINOPHEN < 10 UG/ML (10-30)
[2019-05-13] MEDS ORDERED: PANT40TA3 PO (04:31)
[2019-05-13] MEDS ORDERED: SUCR1TAB36 PO (04:31)
== END 2019-05-12 22:20 | disposition left against medical advice (07) ==
LOC: EDUNIT# 22:00 → ER 22:05
DX: F10.280 Alcohol dependence with alcohol-induced anxiety disorder (principal); F32.9 Major depressive disorder, single episode, unspecified; R07.9 Chest pain, unspecified; I10 Essential (primary) hypertension; J45.909 Unspecified asthma, uncomplicated; F41.9 Anxiety disorder, unspecified; F60.9 Personality disorder, unspecified; F90.9 Attention-deficit hyperactivity disorder, unspecified type; Z88.8 Allergy status to other drugs, medicaments and biological substances; Z91.040 Latex allergy status; Z91.5 Personal history of self-harm; Z77.22 Contact with and (suspected) exposure to environmental tobacco smoke (acute) (chronic)
CPT/HCPCS: 80053; 80320; 80329; 84484; 85025; 93005

== ENCOUNTER 2019-05-13 00:24 | Emergency (ER) | payer OTHER ==
[~2019-05-13] VITALS: Ht 157.5 cm; Wt 56.7 kg
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
--- NOTE | 2019-05-13 00:53 | NUR ---
Note julio in EDM - 05/13/19 at 0143 by KATELYN PT STATES THERE IS A "BEEPING IN MY ROOM AND NO ONE WILL TURN IT OFF. THIS IS BULLSHIT SO I'M JUST GOING TO GO HOME." EDUCATION TO PT ABOUT [facility] ER VISITS AND LEAVING AMA AND THE BENEFITS OF STAYING TO REVIEW LABS AND OBTAIN MEDICATIONS TO TREAT CONDITION. PT STATES, "THE PICTURE IN YOUR BADGE LOOKS GOOD, BUT YOU LOOK BAD NOW." PT REFUSES TO SIGN AMA FORM. DEPARTED AT THIS TIME AMA. DR. MUELLER NOTIFIED.
--- NOTE | 2019-05-13 00:57 | ED Chest Pain ---
General Stated Complaint: PSYCH Source: patient Exam Limitations: no limitations History of Present Illness Date Seen by Provider: May 13, 2019 Time Seen by Provider: 00:50 Initial Comments Patient presents to ER by EMS for the fourth time today with chief complaint that her chest is on fire. She has been drinking alcohol today. She says that her chest pain has worsened no has been stable for the past 2 weeks and she wants an echocardiogram to prove there is nothing wrong with her bowels were hard. She saw her primary care doctor yesterday on the and he set her up for outpatient echocardiogram. She has never had an EGD. She's having no shortness of breath, palpitations, passing out. She says the GI cocktail we tried yesterday did not help her burning sensation. She says her doctor thought that her alcohol that she was drinking might be contributing to gastritis which was causing her pain but they would do an appropriate cardiac workup before pursuing her GI tract. No significant family medical history of coronary disease except for her biological father has stents. She denies nausea now. She is not on antacids. She has never tried Carafate before. Allergies and Home Medications Allergies Coded Allergies: escitalopram (Verified Allergy, Unknown, 05/19/18) latex (Verified Allergy, Unknown, 05/19/18) Home Medications Albuterol Sulfate 1 Puff Puff, 2 PUFF IH Q6H PRN for SHORTNESS OF BREATH, (Reported) 1 PUFF = 90 MCG Azithromycin 250 Mg Tablet, 250 MG PO UD TAKE 2 TABLETS ON DAY ONE THEN TAKE 1 TABLET DAILY FOR FOUR MORE DAYS Prescribed by: BEVERLY MUELLER on 06/05/18 0253 Clonidine HCl 0.1 Mg Tablet, 0.1 MG PO BID, (Reported) Pantoprazole Sodium 40 Mg Tablet.dr, 40 MG PO DAILY Prescribed by: BEVERLY MUELLER on 05/13/19 043 Sucralfate 1 Gm Tablet, 1 GM PO QIDACHS Prescribed by: BEVERLY MUELLER on 05/13/19430 Patient Home Medication List Home Medication List Reviewed: Yes Review of Systems Review of Systems Constitutional: No chills, No diaphoresis EENTM: No Blurred Vision, No Double Vision Respiratory: Denies Cough, Denies Orthopnea Cardiovascular: See HPI, Chest Pain; Denies Edema, Denies Irregular Heart Rate, Denies Palpitations, Denies Syncope Gastrointestinal: Denies Abdomen Distended, Denies Abdominal Pain, Denies Constipated, Denies Diarrhea, Denies Nausea Genitourinary: Denies Burning, Denies Discharge Musculoskeletal: No back pain, No joint pain Skin: No change in color, No pruritus, No rash Psychiatric/Neurological: Denies Headache, Denies Numbness Past Ajonlda-Cjdsdc-Jixigo Hx Patient Social History Alcohol Use: Regular Use Alcohol Beverage of Choice: Vodka Recreational Drug Use: Yes Drug of Choice: METH, THC, BENZO'S, PCP, ECSTASY, OTHERS. Smoking Status: Current Everyday Smoker Type Used: Cigarettes 2nd Hand Smoke Exposure: Yes Recent Foreign Travel: No Contact w/Someone Who Travel: No Recent Hopitalizations: No Immunizations Up To Date Tetanus Booster (TDap): Less than 5yrs Date of Influenza Vaccine: Jul 24, 2014 Seasonal Allergies Seasonal Allergies: No Past Medical History Surgeries: Yes (DENTAL) Respiratory: Yes Asthma Cardiac: Yes Hypertension Neurological: No Reproductive Disorders: No Female Reproductive Disorders: Denies Sexually Transmitted Disease: Yes (CHLAMYDIA) HIV/AIDS: No Genitourinary: No Gastrointestinal: No Musculoskeletal: No Endocrine: Yes (hypoglycemia) HEENT: No Cancer: No Psychosocial: Yes (OVERDOSES; ADMITTED TO [facility] 05/28/18. ) ADD/ADHD, Anxiety, Suicide Attempts, Personality Disorder, Depression Integumentary: No Blood Disorders: No Adverse Reaction/Blood Tranf: No (HAS HAD A BLOOD TRANSFUSION AFTER . ) Family Medical History Patient reports no known family medical history. No Pertinent Family Hx Physical Exam Vital Signs Vital Signs - First Documented 05/13/19 05/13/19 00:53 01:30 Temp 96.4 Pulse 80 Resp 16 B/P (MAP) 117/81 (93) Pulse Ox 100 Capillary Refill : Height, Weight, BMI Height: 5'2.00" Weight: 125lbs. 3.0oz. [id number]; 22.9 BMI Method:Stated General Appearance: No Apparent Distress, WD/WN, Anxious HEENT: PERRL/EOMI, Pharynx Normal, Moist Mucous Membranes Neck: Full Range of Motion, Normal Inspection, Non Tender, Supple Respiratory: Chest Non Tender, Lungs Clear, Normal Breath Sounds, No Accessory Muscle Use, No Respiratory Distress Cardiovascular: Regular Rate, Rhythm, No Edema, Normal Peripheral Pulses Gastrointestinal: Normal Bowel Sounds, Non Tender, Soft Neurologic/Psychiatric: Alert, Oriented x3 Skin: Normal Color, Warm/Dry Progress/Results/Core Measures Results/Orders Lab Results Laboratory Tests Test 05/13/19 01:00 05/13/19 01:20 Range/Units Urine Color YELLOW Urine Clarity SL CLOUDY Urine pH 6 5-9 Urine Specific [place] 1.020 1.016-1.022 Urine Protein 1+ H NEGATIVE Urine Glucose (UA) NEGATIVE NEGATIVE Urine Ketones 1+ H NEGATIVE Urine Nitrite NEGATIVE NEGATIVE Urine Bilirubin NEGATIVE NEGATIVE Urine Urobilinogen NORMAL NORMAL MG/DL Urine Leukocyte Esterase NEGATIVE NEGATIVE Urine RBC (Auto) 5+ H NEGATIVE Urine RBC 25-50 H /HPF Urine WBC RARE /HPF Urine Squamous Epithelial Cells 2-5 /HPF Urine Crystals NONE /LPF Urine Bacteria TRACE /HPF Urine Casts NONE /LPF Urine Mucus MODERATE H /LPF Urine Culture Indicated NO Urine Test NEGATIVE NEGATIVE Urine Opiates Screen NEGATIVE NEGATIVE Urine Oxycodone Screen NEGATIVE NEGATIVE Urine Methadone Screen NEGATIVE NEGATIVE Urine Propoxyphene Screen NEGATIVE NEGATIVE Urine Barbiturates Screen NEGATIVE NEGATIVE Ur Tricyclic Antidepressants Screen NEGATIVE NEGATIVE Urine Phencyclidine Screen NEGATIVE NEGATIVE Urine Amphetamines Screen POSITIVE H NEGATIVE Urine Methamphetamines Screen NEGATIVE NEGATIVE Urine Benzodiazepines Screen NEGATIVE NEGATIVE Urine Cocaine Screen NEGATIVE NEGATIVE Urine Cannabinoids Screen POSITIVE H NEGATIVE Troponin I < 0.028 <0.028 NG/ML Serum Alcohol 119 H <10 MG/DL My Orders Orders - BEVERLY MUELLER Ekg Tracing (05/13/19 00:25) Continuous Ekg Monitoring (05/13/19 00:25) Alcohol (05/13/19 00:54) Troponin I (05/13/19 00:54) Ua Culture If Indicated (05/13/19 00:54) Drug Screen Stat (Urine) (05/13/19 00:54) Urine Bedside (05/13/19 00:54) Folic Acid Tablet (Folic Acid Tablet) (05/13/19 01:00) Thiamine Tablet (Vitamin B-1 Tablet) (05/13/19 01:00) Hcg,Qualitative Urine (05/13/19 01:10) Lidocaine 2% Viscous 15 Ml (Xylocaine Vi (05/13/19 01:15) Antacid Suspension (Mylanta Suspension (05/13/19 01:15) Pantoprazole Tablet (Protonix Tablet) (05/13/19 01:15) Vital Signs/I&O 05/13/19 05/13/19 00:53 01:30 Temp 96.4 96.4 Pulse 80 80 Resp 16 16 B/P (MAP) 117/81 (93) 117/81 (93) Pulse Ox 100 Progress Progress Note : Time: 01:15 Progress Note EKG unchanged. Repeat a troponin alcohol level urine drug screen, urinalysis. Her labs were reviewed from 10:00 last night when she went and february were unremarkable. Initial ECG Impression Date: May 13, 2019 Initial ECG Impression Time: 00:26 Initial ECG Rate: 80 Initial ECG Rhythm: Normal Sinus Initial ECG Intervals: Normal Initial ECG Impression: Normal, Nonspecific Changes Initial ECG Comparisson: Unchanged Comment Normal sinus rhythm without any clinically significant ST elevation or depression. Departure Impression Primary Impression: Alcoholic gastritis without bleeding Qualified Codes: K29.20 - Alcoholic gastritis without bleeding Additional Impressions: Acute anxiety Alcohol dependence Qualified Codes: F10.29 - Alcohol dependence with unspecified alcohol- induced disorder Disposition: 07 AGAINST MEDICAL ADVICE Condition: Against Medical Advice Departure-Patient Inst. Decision time for Depature: 01:30 Referrals: [facility] (PCP/Family) Primary Care Physician Patient Instructions: ALCOHOL AND SUBSTANCE ABUSE Add. Discharge Instructions: Please keep your follow-up with primary care. BEVERLY MUELLER May 13, 2019 00:57
[2019-05-13] MEDS ORDERED: FOLIC ACID 1 MG TAB PO ONE (01:00)
[2019-05-13] MEDS ORDERED: THIAMINE 100 MG (VITAMIN B-1) TAB PO ONE (01:00)
[2019-05-13 01:07] LABS: BILIRUBIN,URINE NEGATIVE (NEGATIVE); COLOR,URINE YELLOW; GLUCOSE, URINE (UA) NEGATIVE (NEGATIVE); KETONES,URINE 1+ (NEGATIVE); LEUKOCYTE ESTERASE ,URINE NEGATIVE (NEGATIVE); NITRITE,URINE NEGATIVE (NEGATIVE); PH,URINE 6 (5-9); PROTEIN,URINE 1+ (NEGATIVE); UROBILINOGEN,URINE NORMAL (NORMAL)
[2019-05-13] MEDS ORDERED: LIDOCAINE 2% VISCOUS 15 ML UDC PO ONE (01:15)
[2019-05-13] MEDS ORDERED: ANTACID SUSP 30 ML UDC (MYLANTA) PO ONE (01:15)
[2019-05-13] MEDS ORDERED: PANTOPRAZOLE 40 MG (PROTONIX) TAB PO ONE (01:15)
[2019-05-13 01:22] LABS: AMPHETAMINE SCREEN, URINE POSITIVE (NEGATIVE); BACTERIA,URINE TRACE /HPF; BARBITURATE SCREEN URINE NEGATIVE (NEGATIVE); BENZODIAZEPINES SCREEN URINE NEGATIVE (NEGATIVE); CANNABINOID SCREEN, URINE POSITIVE (NEGATIVE); COCAINE SCREEN URINE NEGATIVE (NEGATIVE); METHADONE STAT NEGATIVE (NEGATIVE); METHAMPHETAMINE SCREEN URINE S NEGATIVE (NEGATIVE); OPIATE SCREEN URINE NEGATIVE (NEGATIVE); OXYCODONE STAT NEGATIVE (NEGATIVE); PROPOXYPHENE STAT NEGATIVE (NEGATIVE); RBC,URINE 25-50 /HPF; TRICYCLIC ANTIDEPRESSANTS SCRE NEGATIVE (NEGATIVE); WBC,URINE RARE /HPF
[2019-05-13 01:23] LABS: CLARITY,URINE SL CLOUDY
[2019-05-13 01:30] VITALS: BP 117/81
--- NOTE | 2019-05-13 01:30 | NUR ---
PT STATES THERE IS A "BEEPING IN MY ROOM AND NO ONE WILL TURN IT OFF. THIS IS BULLSHIT SO I'M JUST GOING TO GO HOME." EDUCATION TO PT ABOUT [facility] ER VISITS AND LEAVING AMA AND THE BENEFITS OF STAYING TO REVIEW LABS AND OBTAIN MEDICATIONS TO TREAT CONDITION. PT STATES, "THE PICTURE IN YOUR BADGE LOOKS GOOD, BUT YOU LOOK BAD NOW." PT REFUSES TO SIGN AMA FORM. DEPARTED AT THIS TIME AMA. DR. MUELLER NOTIFIED.
[2019-05-13] MEDS ORDERED: PANT40TA3 PO (04:31)
[2019-05-13] MEDS ORDERED: SUCR1TAB36 PO (04:31)
== END 2019-05-13 01:30 | disposition left against medical advice (07) ==
LOC: EDUNIT# 00:24 → ER 00:25
DX: K29.20 Alcoholic gastritis without bleeding (principal); F10.20 Alcohol dependence, uncomplicated; F41.9 Anxiety disorder, unspecified; I10 Essential (primary) hypertension; J45.909 Unspecified asthma, uncomplicated; F90.9 Attention-deficit hyperactivity disorder, unspecified type; F60.9 Personality disorder, unspecified; F32.9 Major depressive disorder, single episode, unspecified; F17.210 Nicotine dependence, cigarettes, uncomplicated; F15.10 Other stimulant abuse, uncomplicated; F16.10 Hallucinogen abuse, uncomplicated; F12.10 Cannabis abuse, uncomplicated; F13.10 Sedative, hypnotic or anxiolytic abuse, uncomplicated; Z88.8 Allergy status to other drugs, medicaments and biological substances; Z91.040 Latex allergy status; Z91.5 Personal history of self-harm
CPT/HCPCS: 36415; 80306; 80320; 81000; 84484; 84703; 93005

== ENCOUNTER 2019-05-13 02:48 | Emergency (ER) | payer OTHER ==
[~2019-05-13] VITALS: Ht 157.5 cm; Wt 56.8 kg
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
--- NOTE | 2019-05-13 04:13 | NUR ---
MELONIE WITH [facility] CALLED AT THIS TIME TO INFORM [facility] WOULD BE ON THEIR WAY TO ER TO TAKE PT TO [facility]. DR. MUELLER AND PT INFORMED.
[2019-05-13] MEDS ORDERED: PANTOPRAZOLE 40 MG (PROTONIX) TAB PO ONE (04:30)
[2019-05-13] MEDS ORDERED: ANTACID SUSP 30 ML UDC (MYLANTA) PO ONE (04:30)
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
[2019-05-13] MEDS ORDERED: PANT40TA3 PO (04:31)
[2019-05-13] MEDS ORDERED: SUCR1TAB36 PO (04:31)
[2019-05-13 04:38] VITALS: BP 115/80
--- NOTE | 2019-05-13 04:40 | NUR ---
[facility] HERE FOR PT.
== END 2019-05-13 04:40 | disposition home or self-care (01) ==
LOC: EDUNIT# 02:48 → ER 02:50
DX: T74.11XA Adult physical abuse, confirmed, initial encounter (principal); K29.20 Alcoholic gastritis without bleeding; F10.20 Alcohol dependence, uncomplicated; G47.00 Insomnia, unspecified; F41.8 Other specified anxiety disorders; J45.909 Unspecified asthma, uncomplicated; I10 Essential (primary) hypertension; F90.9 Attention-deficit hyperactivity disorder, unspecified type; F60.9 Personality disorder, unspecified; F32.9 Major depressive disorder, single episode, unspecified; F15.10 Other stimulant abuse, uncomplicated; F12.10 Cannabis abuse, uncomplicated; F13.10 Sedative, hypnotic or anxiolytic abuse, uncomplicated; F16.10 Hallucinogen abuse, uncomplicated; Z77.22 Contact with and (suspected) exposure to environmental tobacco smoke (acute) (chronic); Z91.040 Latex allergy status; Z88.8 Allergy status to other drugs, medicaments and biological substances; Z91.5 Personal history of self-harm; Y07.01 Husband, perpetrator of maltreatment and neglect
CPT/HCPCS: 99283

== ENCOUNTER 2019-06-01 08:27 | Emergency (ER) | payer SELFPAY ==
[~2019-06-01] VITALS: Ht 157.5 cm; Wt 56.8 kg
[~2019-06-01 08:27] MED LIST changes: +PANT40TA3 PO; +SUCR1TAB36 PO
[2019-06-01 08:59] LABS: BASOPHILS % (AUTO) 0 % (0-10); EOSINOPHILS # (AUTO) 0.1 10^3/uL (0.0-0.3); EOSINOPHILS % (AUTO) 1 % (0-10); HEMATOCRIT 32 % (35-52); HEMOGLOBIN 9.9 G/DL (11.5-16.0); LYMPHOCYTES # (AUTO) 1.4 X 10^3 (1.0-4.0); LYMPHOCYTES % (AUTO) 27 % (12-44); MEAN CORPUSCULAR HEMOGLOBIN 24 PG (25-34); MEAN CORPUSCULAR HGB CONC 31 G/DL (32-36); MEAN CORPUSCULAR VOLUME 79 FL (80-99); MEAN PLATELET VOLUME 10.1 FL (7.4-10.4); MONOCYTES # (AUTO) 0.7 X 10^3 (0.0-1.0); MONOCYTES % (AUTO) 13 % (0-12); NEUTROPHILS % (AUTO) 58 % (42-75); PLATELET COUNT 267 10^3/uL (130-400); RED CELL DISTRIBUTION WIDTH 15.9 % (10.0-14.5); WHITE BLOOD COUNT 5.2 10^3/uL (4.3-11.0)
--- NOTE | 2019-06-01 09:00 | NUR ---
LAST DOCUMENTED B/P WAS AT 0900 PATIENT TOOK SELF OFF AND REFUSED TO HAVE DISCHARGE VITAL TAKEN.
--- NOTE | 2019-06-01 09:12 | NUR ---
INFORMED UA NEEDED REFUSED SAID A UA IS NOT GOING TO HELP ME I NEED A CT SCAN.
[2019-06-01 09:16] LABS: ALANINE AMINOTRANSFERASE 64 U/L (0-55); ALBUMIN 3.8 GM/DL (3.2-4.5); ALKALINE PHOSPHATASE 55 U/L (40-136); BILIRUBIN,TOTAL 0.4 MG/DL (0.1-1.0); BUN/CREATININE RATIO 18; CALCIUM 9.1 MG/DL (8.5-10.1); CARBON DIOXIDE 24 MMOL/L (21-32); CHLORIDE 106 MMOL/L (98-107); CREATININE SERUM 0.68 MG/DL (0.60-1.30); GFR ESTIMATED > 60; GLUCOSE 97 MG/DL (70-105); MAGNESIUM 1.6 MG/DL (1.6-2.4); POTASSIUM 3.5 MMOL/L (3.6-5.0); SODIUM 139 MMOL/L (135-145); TOTAL PROTEIN 6.5 GM/DL (6.4-8.2)
[2019-06-01 09:38] LABS: TSH (THYROID ANALYZER) 0.64 UIU/ML (0.35-4.94)
--- NOTE | 2019-06-01 09:59 | Diagnostic Imaging Report ---
INDICATION: Chest pain left-sided 3 months in duration, fingers are going numb. The lungs are clear. Cardiomediastinal and hilar contours were normal. No mass or nodularity. No failure, effusion or pneumothorax. The osseous structures are unremarkable. There has been no change. IMPRESSION: Stable negative two-view chest. Dictated by: Dictated on workstation # [id number]
--- NOTE | 2019-06-01 10:10 | ED General ---
General Chief Complaint: Chest Pain Stated Complaint: CHEST PAIN;SOA Nursing Triage Note: AMB TO ROOM WITH . PATIENT REPORTS HAS HAD PALPATIONS FOR 2 MONTHS WITH SOA. HAS BEEN SEEN IN THIS ER AND AT [facility] HAS HAD HER B/P MEDS CHANGED IN LAST [address] OF HER HEAD TO FIND OUT WHAT IS GOING ON. PATIENT ADMITS TO METH USE. Nursing Sepsis Screen: No Definite Risk Source of Information: Patient Exam Limitations: No Limitations Allergies and Home Medications Allergies Coded Allergies: escitalopram (Verified Allergy, Unknown, 05/19/18) latex (Verified Allergy, Unknown, 05/19/18) Home Medications Albuterol Sulfate 1 Puff Puff, 2 PUFF IH Q6H PRN for SHORTNESS OF BREATH, (Reported) 1 PUFF = 90 MCG Azithromycin 250 Mg Tablet, 250 MG PO UD TAKE 2 TABLETS ON DAY ONE THEN TAKE 1 TABLET DAILY FOR FOUR MORE DAYS Prescribed by: BEVERLY MUELLER on 06/05/18 0253 Clonidine HCl 0.1 Mg Tablet, 0.1 MG PO BID, (Reported) Past Hoidarl-Xkgljs-Tgxtvh Hx Patient Social History Alcohol Use: Regular Use Number of Drinks Today: FF Alcohol Beverage of Choice: Vodka Recreational Drug Use: Yes (ETOH) Drug of Choice: METH, THC, BENZO'S, PCP, ECSTASY, OTHERS. Smoking Status: Current Everyday Smoker Type Used: Cigarettes 2nd Hand Smoke Exposure: Yes Recent Foreign Travel: No Contact w/Someone Who Travel: No Recent Infectious Disease Expo: No Recent Hopitalizations: No Immunizations Up To Date Tetanus Booster (TDap): Less than 5yrs Date of Influenza Vaccine: Jul 24, 2014 Seasonal Allergies Seasonal Allergies: No Past Medical History Surgeries: Yes (DENTAL) Respiratory: Yes Asthma Cardiac: Yes Hypertension Neurological: No Reproductive Disorders: No Female Reproductive Disorders: Denies Sexually Transmitted Disease: Yes (CHLAMYDIA) HIV/AIDS: No Genitourinary: No Gastrointestinal: No Musculoskeletal: No Endocrine: Yes (hypoglycemia) HEENT: No Cancer: No Psychosocial: Yes (OVERDOSES; ADMITTED TO [facility] 05/28/18. ) ADD/ADHD, Anxiety, Suicide Attempts, Personality Disorder, Depression Integumentary: No Blood Disorders: No Adverse Reaction/Blood Tranf: No (HAS HAD A BLOOD TRANSFUSION AFTER . ) Family Medical History Patient reports no known family medical history. No Pertinent Family Hx Physical Exam Vital Signs Vital Signs - First Documented 06/01/19 08:33 Pulse 76 Resp 18 B/P (MAP) 136/100 (112) Pulse Ox 100 O2 Delivery Room Air Capillary Refill : Less Than 3 Seconds Height, Weight, BMI Height: 5'2.00" Weight: 125lbs. 3.0oz. 56.849230be; 22.9 BMI Method:Stated Progress/Results/Core Measures Suspected Sepsis Recent Fever Within 48 Hours: No Infection Criteria Present: None New/Unexplained Altered Menta: No Sepsis Screen: No Definite Risk SIRS Temperature: Pulse: 76 Respiratory Rate: 18 Laboratory Tests 06/01/19 08:41: White Blood Count 5.2 Blood Pressure 136 /100 Mean: 112 Laboratory Tests 06/01/19 08:41: Creatinine 0.68, Platelet Count 267, Total Bilirubin 0.4 Results/Orders Lab Results Laboratory Tests Test 06/01/19 08:41 Range/Units White Blood Count 5.2 4.3-11.0 10^3/uL Red Blood Count 4.06 L 4.35-5.85 10^6/uL Hemoglobin 9.9 L 11.5-16.0 G/DL Hematocrit 32 L 35-52 % Mean Corpuscular Volume 79 L 80-99 FL Mean Corpuscular Hemoglobin 24 L 25-34 PG Mean Corpuscular Hemoglobin Concent 31 L 32-36 G/DL Red Cell Distribution Width 15.9 H 10.0-14.5 % Platelet Count 267 130-400 10^3/uL Mean Platelet Volume 10.1 7.4-10.4 FL Neutrophils (%) (Auto) 58 42-75 % Lymphocytes (%) (Auto) 27 12-44 % Monocytes (%) (Auto) 13 H 0-12 % Eosinophils (%) (Auto) 1 0-10 % Basophils (%) (Auto) 0 0-10 % Neutrophils # (Auto) 3.0 1.8-7.8 X 10^3 Lymphocytes # (Auto) 1.4 1.0-4.0 X 10^3 Monocytes # (Auto) 0.7 0.0-1.0 X 10^3 Eosinophils # (Auto) 0.1 0.0-0.3 10^3/uL Basophils # (Auto) 0.0 0.0-0.1 10^3/uL Sodium Level 139 135-145 MMOL/L Potassium Level 3.5 L 3.6-5.0 MMOL/L Chloride Level 106 98-107 MMOL/L Carbon Dioxide Level 24 21-32 MMOL/L Anion Gap 9 5-14 MMOL/L Blood Urea Nitrogen 12 7-18 MG/DL Creatinine 0.68 0.60-1.30 MG/DL Estimat Glomerular Filtration Rate > 60 BUN/Creatinine Ratio 18 Glucose Level 97 70-105 MG/DL Calcium Level 9.1 8.5-10.1 MG/DL Corrected Calcium 9.3 8.5-10.1 MG/DL Magnesium Level 1.6 1.6-2.4 MG/DL Total Bilirubin 0.4 0.1-1.0 MG/DL Aspartate Amino Transf (AST/SGOT) 64 H 5-34 U/L Alanine Aminotransferase (ALT/SGPT) 64 H 0-55 U/L Alkaline Phosphatase 55 40-136 U/L Total Protein 6.5 6.4-8.2 GM/DL Albumin 3.8 3.2-4.5 GM/DL TSH Freeborn Testing 0.64 0.35-4.94 UIU/ML Serum Test, Qualitative NEGATIVE NEGATIVE Serum Alcohol < 10 <10 MG/DL My Orders Orders - ISELA JEAN-BAPTISTE MD Alcohol (06/01/19 08:51) Cbc With Automated Diff (06/01/19 08:51) Comprehensive Metabolic Panel (06/01/19 08:51) Hcg,Qualitative Serum (06/01/19 08:51) Magnesium (06/01/19 08:51) Thyroid Analyzer (06/01/19 08:51) Ed Iv/Invasive Line Start (06/01/19 08:51) Ekg Tracing (06/01/19 08:51) Monitor-Rhythm Ecg Trace Only (06/01/19 08:51) Chest Pa/Lat (2 View) (06/01/19 09:23) Vital Signs/I&O 06/01/19 10:44 Pulse 75 Resp 18 B/P (MAP) 118/83 (95) Pulse Ox 100 Capillary Refill : Less Than 3 Seconds Blood Pressure Mean: 112 ECG Initial ECG Impression Date: Jun 01, 2019 Initial ECG Impression Time: 09:08 Initial ECG Rate: 84 Initial ECG Rhythm: Normal Sinus Initial ECG Intervals: Normal Initial ECG Impression: Normal Comment Normal sinus rhythm with no ST elevation or depression. No abnormal intervals or axis deviation. Diagnostic Imaging Diagonstic Imaging: Xray Plain Films/CT/US/NM/MRI: chest Comments Chest x-ray viewed by me and report reviewed. See report below: NAME: PETER [facility]AVERAS [facility] REC#: [id number] PT STATUS: REG ER : 1995 PHYSICIAN: ISELA JEAN-BAPTISTE MD ADMIT DATE: 06/01/19/ER Draft Date of Exam:06/01/19 CHEST PA/LAT (2 VIEW) INDICATION: Chest pain left-sided 3 months in duration, fingers are going numb. The lungs are clear. Cardiomediastinal and hilar contours were normal. No mass or nodularity. No failure, effusion or pneumothorax. The osseous structures are unremarkable. There has been no change. IMPRESSION: Stable negative two-view chest. Dictated on workstation # [id number] Dict: 06/01/19 0956 Trans: 06/01/19 0959 [facility] [id number] Interpreted by: DINORA MARTINEZ Departure Impression Primary Impression: Dyspnea Qualified Codes: R06.00 - Dyspnea, unspecified Additional Impressions: Anemia Qualified Codes: D64.9 - Anemia, unspecified Methamphetamine abuse Alcohol dependence Qualified Codes: F10.29 - Alcohol dependence with unspecified alcohol- induced disorder Disposition: 01 HOME, SELF-CARE Condition: Stable Departure-Patient Inst. Decision time for Depature: 10:35 Referrals: [facility] (PCP/Family) Primary Care Physician Patient Instructions: Alcohol Abuse and Alcoholism (DC), Methamphetamine Add. Discharge Instructions: Follow-up with your primary care provider soon as possible. Return to care if symptoms are worsening. You're strongly encouraged to seek assistance with cessation of methamphetamine and alcohol use as these are likely contributing to your symptoms. Please be advised that combining the use of clonidine, methamphetamines, and alcohol may cause a wide variation in blood pressure and heart rate. This may cause dizziness, anxiety, etc. All discharge instructions reviewed with patient and/or family. Voiced understanding. ISELA JEAN-BAPTISTE MD Jun 01, 2019 10:10
[2019-06-01 10:44] VITALS: BP 118/83
== END 2019-06-01 10:42 | disposition home or self-care (01) ==
LOC: EDUNIT# 08:27 → ER 08:28
DX: F10.20 Alcohol dependence, uncomplicated (principal); F15.10 Other stimulant abuse, uncomplicated; D64.9 Anemia, unspecified; R06.00 Dyspnea, unspecified; J45.909 Unspecified asthma, uncomplicated; I10 Essential (primary) hypertension; F90.9 Attention-deficit hyperactivity disorder, unspecified type; F41.9 Anxiety disorder, unspecified; F32.9 Major depressive disorder, single episode, unspecified; F60.9 Personality disorder, unspecified; F17.210 Nicotine dependence, cigarettes, uncomplicated; Z88.8 Allergy status to other drugs, medicaments and biological substances; Y90.0 Blood alcohol level of less than 20 mg/100 ml
CPT/HCPCS: 36415; 71046; 80053; 80320; 83735; 84443; 84703; 85025; 93005; 93041

== ENCOUNTER 2019-08-04 16:36 | Emergency (ER) | payer SELFPAY ==
[~2019-08-04] VITALS: Ht 157 cm; Wt 63.6 kg
--- NOTE | 2019-08-04 17:14 | ED General ---
General Chief Complaint: Chest Pain Stated Complaint: CP Nursing Triage Note: Pt ambulates to [facility] 6 with c/o sternal chest pain rates 4/10 that started approx 1600 today. Pt also reports "neck pulsating", "veins on fire", and "fishy smell from urine". Pt reports she drank 1/2 pint vodka today as well as smoke THC this am. Pt states she took a preg test 1 wk ago and it was positive. Pt is covered with bruises and cigarette hubbard on her legs and arms upon arrival. When asked about the bruises, pt states "we were just playing around" Nursing Sepsis Screen: No Definite Risk History of Present Illness Date Seen by Provider: Aug 04, 2019 Time Seen by Provider: 16:40 Initial Comments 23-year-old female presents for chest pain, when asked to clarify she points to her throat. She reports one week ago having a positive test at home. She is known to have mental health issues and is currently on Klonopin. She previously was drinking 1 gallon of vodka daily, she is decreased this to 1 pint since finding out she was . Her therapist told her not to quit cold turkey. She is not taking vitamins. She reports feeling like her neck is pulsating and her veins are on fire. She has multiple lesions and areas of ecchymosis to her arms and legs, at various stages of healing from self- inflicted lighters and picking. She denies any physical abuse. She denies IV drug use. She denies any suicidal or homicidal thoughts. She's been followed at [facility] by mental health and primary care. Her LMP is unknown. She has had 5 previous pregnancies with 2 miscarriages. Timing/Duration: 1-3 Hours Severity: Mild Associated Systoms: Chest Pain; No Cough, No Diaphoresis, No Fever/Chills, No Headaches, No Loss of Appetite; Malaise, Nausea/Vomiting, Rash; No Seizure, No Shortness of Air, No Syncope, No Weakness Allergies and Home Medications Allergies Coded Allergies: escitalopram (Verified Allergy, Unknown, 05/19/18) latex (Verified Allergy, Unknown, 05/19/18) Home Medications Albuterol Sulfate 1 Puff Puff, 2 PUFF IH Q6H PRN for SHORTNESS OF BREATH, (Reported) 1 PUFF = 90 MCG Azithromycin 250 Mg Tablet, 250 MG PO UD TAKE 2 TABLETS ON DAY ONE THEN TAKE 1 TABLET DAILY FOR FOUR MORE DAYS Prescribed by: BEVERLY MUELLER on 06/05/18 0253 Clonidine HCl 0.1 Mg Tablet, 0.1 MG PO BID, (Reported) Patient Home Medication List Home Medication List Reviewed: Yes Review of Systems Review of Systems Constitutional: no symptoms reported, see HPI Respiratory: no symptoms reported, see HPI Cardiovascular: see HPI, chest pain Gastrointestinal: see HPI, constipation, heartburn : Yes (per patient, however negative hCG per urine on admission) Psychiatric/Neurological: See HPI, Anxiety All Other Systems Reviewed Negative Unless Noted: Yes Past Pnhrpiw-Yjvzmp-Kztdon Hx Past Med/Social Hx: Reviewed Nursing Past Med/Soc Hx Patient Social History Alcohol Use: Regular Use Number of Drinks Today: FF Alcohol Beverage of Choice: Vodka Recreational Drug Use: Yes (Meth in the past ) Drug of Choice: THC Smoking Status: Current Everyday Smoker Type Used: Cigarettes 2nd Hand Smoke Exposure: Yes Recent Foreign Travel: No Contact w/Someone Who Travel: No Recent Infectious Disease Expo: No Recent Hopitalizations: No Physical Abuse: No Sexual Abuse: No Mistreated: No Fear: No Immunizations Up To Date Tetanus Booster (TDap): Less than 5yrs Date of Influenza Vaccine: Jul 24, 2014 Seasonal Allergies Seasonal Allergies: No Past Medical History Surgeries: Yes (DENTAL) Abdominal Respiratory: Yes Asthma Cardiac: Yes Hypertension Neurological: No Reproductive Disorders: No Female Reproductive Disorders: Denies Sexually Transmitted Disease: Yes (CHLAMYDIA) HIV/AIDS: No Genitourinary: No Gastrointestinal: No Musculoskeletal: No Endocrine: Yes (hypoglycemia) HEENT: No Cancer: No Psychosocial: Yes (OVERDOSES; ADMITTED TO [facility] 05/28/18. ) ADD/ADHD, Anxiety, Suicide Attempts, Personality Disorder, Depression Integumentary: No Blood Disorders: No Adverse Reaction/Blood Tranf: No (HAS HAD A BLOOD TRANSFUSION AFTER . ) Family Medical History Patient reports no known family medical history. No Pertinent Family Hx Physical Exam Vital Signs Vital Signs - First Documented 08/04/19 16:49 Temp 36.7 Pulse 89 Resp 17 B/P (MAP) 129/97 (108) Pulse Ox 99 O2 Delivery Room Air Capillary Refill : Less Than 3 Seconds Height, Weight, BMI Height: 5'2.00" Weight: 125lbs. 3.0oz. [id number]; 25.00 BMI Method:Stated General Appearance: No Apparent Distress, WD/WN Eyes: Bilateral Eye Normal Inspection, Bilateral Eye PERRL, Bilateral Eye EOMI HEENT: PERRL/EOMI, TMs Normal, Normal ENT Inspection, Pharynx Normal Neck: Full Range of Motion, Normal Inspection, Non Tender, Supple Respiratory: Chest Non Tender, Lungs Clear, Normal Breath Sounds Cardiovascular: Regular Rate, Rhythm, No Edema, No Murmur, Normal Peripheral P ulses Gastrointestinal: Normal Bowel Sounds, Non Tender, Soft Extremity: Normal Capillary Refill, Normal Range of Motion, Non Tender, No Calf Tenderness Neurologic/Psychiatric: Alert, Oriented x3, No Motor/Sensory Deficits Skin: Warm/Dry, Ecchymosis, Erythema, Tattoos/Piercings Lymphatic: No Adenopathy Progress/Results/Core Measures Suspected Sepsis Recent Fever Within 48 Hours: No Infection Criteria Present: None New/Unexplained Altered Menta: No Sepsis Screen: No Definite Risk SIRS Temperature: Pulse: 89 Respiratory Rate: 17 Laboratory Tests 08/04/19 16:44: White Blood Count 5.5 Blood Pressure 129 /97 Mean: 108 Laboratory Tests 08/04/19 16:44: Creatinine 0.64, Platelet Count 236, Total Bilirubin 0.7 Results/Orders Lab Results Laboratory Tests Test 08/04/19 16:44 08/04/19 16:50 Range/Units White Blood Count 5.5 4.3-11.0 10^3/uL Red Blood Count 4.51 4.35-5.85 10^6/uL Hemoglobin 11.3 L 11.5-16.0 G/DL Hematocrit 35 35-52 % Mean Corpuscular Volume 77 L 80-99 FL Mean Corpuscular Hemoglobin 25 25-34 PG Mean Corpuscular Hemoglobin Concent 33 32-36 G/DL Red Cell Distribution Width 19.2 H 10.0-14.5 % Platelet Count 236 130-400 10^3/uL Mean Platelet Volume 9.7 7.4-10.4 FL Neutrophils (%) (Auto) 67 42-75 % Lymphocytes (%) (Auto) 24 12-44 % Monocytes (%) (Auto) 8 0-12 % Eosinophils (%) (Auto) 0 0-10 % Basophils (%) (Auto) 1 0-10 % Neutrophils # (Auto) 3.7 1.8-7.8 X 10^3 Lymphocytes # (Auto) 1.3 1.0-4.0 X 10^3 Monocytes # (Auto) 0.4 0.0-1.0 X 10^3 Eosinophils # (Auto) 0.0 0.0-0.3 10^3/uL Basophils # (Auto) 0.0 0.0-0.1 10^3/uL Sodium Level 140 135-145 MMOL/L Potassium Level 3.3 L 3.6-5.0 MMOL/L Chloride Level 101 98-107 MMOL/L Carbon Dioxide Level 23 21-32 MMOL/L Anion Gap 16 H 5-14 MMOL/L Blood Urea Nitrogen 9 7-18 MG/DL Creatinine 0.64 0.60-1.30 MG/DL Estimat Glomerular Filtration Rate > 60 BUN/Creatinine Ratio 14 Glucose Level 98 70-105 MG/DL Calcium Level 9.3 8.5-10.1 MG/DL Corrected Calcium 9.0 8.5-10.1 MG/DL Total Bilirubin 0.7 0.1-1.0 MG/DL Aspartate Amino Transf (AST/SGOT) 132 H 5-34 U/L Alanine Aminotransferase (ALT/SGPT) 61 H 0-55 U/L Alkaline Phosphatase 66 40-136 U/L Total Protein 7.4 6.4-8.2 GM/DL Albumin 4.4 3.2-4.5 GM/DL Serum Test, Qualitative NEGATIVE NEGATIVE Urine Color YELLOW Urine Clarity CLEAR Urine pH 6.5 5-9 Urine Specific [place] 1.015 L 1.016-1.022 Urine Protein 2+ H NEGATIVE Urine Glucose (UA) NEGATIVE NEGATIVE Urine Ketones 3+ H NEGATIVE Urine Nitrite NEGATIVE NEGATIVE Urine Bilirubin NEGATIVE NEGATIVE Urine Urobilinogen 1 NORMAL MG/DL Urine Leukocyte Esterase 1+ H NEGATIVE Urine RBC (Auto) 1+ H NEGATIVE Urine RBC 0-2 /HPF Urine WBC 0-2 /HPF Urine Squamous Epithelial Cells 2-5 /HPF Urine Crystals NONE /LPF Urine Bacteria TRACE /HPF Urine Casts PRESENT /LPF Urine Granular Casts 0-2 H /LPF Urine Mucus MODERATE H /LPF Urine Culture Indicated NO Urine Opiates Screen NEGATIVE NEGATIVE Urine Oxycodone Screen NEGATIVE NEGATIVE Urine Methadone Screen NEGATIVE NEGATIVE Urine Propoxyphene Screen NEGATIVE NEGATIVE Urine Barbiturates Screen NEGATIVE NEGATIVE Ur Tricyclic Antidepressants Screen NEGATIVE NEGATIVE Urine Phencyclidine Screen NEGATIVE NEGATIVE Urine Amphetamines Screen NEGATIVE NEGATIVE Urine Methamphetamines Screen NEGATIVE NEGATIVE Urine Benzodiazepines Screen NEGATIVE NEGATIVE Urine Cocaine Screen NEGATIVE NEGATIVE Urine Cannabinoids Screen POSITIVE H NEGATIVE My Orders Orders - LUIS EEVER LAWLER Cbc With Automated Diff (08/04/19 17:05) Comprehensive Metabolic Panel (08/04/19 17:05) Drug Screen Stat (Urine) (08/04/19 17:05) Hcg,Qualitative Serum (08/04/19 17:05) Ua Culture If Indicated (08/04/19 17:05) Ekg Tracing (08/04/19 17:05) Urine Bedside (08/04/19 17:35) Ed Iv/Invasive Line Start (08/04/19 17:51) Ns Iv 1000 Ml (Sodium Chloride 0.9%) (08/04/19 17:51) Magnesium Hydroxide Oral Susp (Mom Oral (08/04/19 18:00) Lidocaine 2% Viscous 15 Ml (Xylocaine Vi (08/04/19 18:00) Antacid Suspension (Mylanta Suspension (08/04/19 18:00) Medications Given in ED Current Medications Medications Dose Ordered Sig/Sachin Route Start Time Stop Time Status Last Admin Dose Admin Al Hydrox/Mg Hydrox/Simethicone 30 ml ONCE ONCE PO 08/04/19 18:00 08/04/19 18:01 DC 08/04/19 18:03 30 ML Lidocaine HCl 15 ml ONCE ONCE PO 08/04/19 18:00 08/04/19 18:01 DC 08/04/19 18:03 15 ML Magnesium Hydroxide 30 ml ONCE ONCE PO 08/04/19 18:00 08/04/19 18:01 DC 08/04/19 18:07 30 ML Vital Signs/I&O 08/04/19 08/04/19 16:49 16:55 Temp 36.7 Pulse 89 Resp 17 B/P (MAP) 129/97 (108) Pulse Ox 99 O2 Delivery Room Air Room Air Capillary Refill : Less Than 3 Seconds Blood Pressure Mean: 108 Progress Note : Time: 16:40 Progress Note Patient seen and evaluated. Will obtain labs and EKG. GI cocktail. 1725 patient reports some improvement in her symptoms. 1745 discussed lab results with the patient, explaining that her hCG and both serum and urine is negative. 1815 patient reports be feeling better. 1830 Ambulated to Bathroom, passed large stool. 1845 discharge instructions and return precautions reviewed with patient and all questions answered. ECG Initial ECG Impression Date: Aug 04, 2019 Initial ECG Impression Time: 17:14 Initial ECG Rate: 81 Initial ECG Rhythm: Normal Sinus Initial ECG Intervals: Normal Initial ECG Intervals PA 176, QRSD 180, QT 396, QTc 460. [place] P 52, QRS 46, T 46 Initial ECG Impression: Normal Initial ECG Comparisson: Unchanged Departure Impression Primary Impression: Acute anxiety Additional Impressions: ETOH abuse Constipation Qualified Codes: K59.00 - Constipation, unspecified Withdrawal symptoms, alcohol Qualified Codes: F10.230 - Alcohol dependence with withdrawal, uncomplicated Disposition: HOME, SELF-CARE Condition: Improved Departure-Patient Inst. Decision time for Depature: 18:45 Referrals: [facility] [place] (PCP/Family) Primary Care Physician Patient Instructions: Acid Reflux (Gastroesophageal Reflux Disease), Adult (DC), Constipation, Adult (DC), Alcohol Abuse and Alcoholism (DC) Add. Discharge Instructions: Follow-up with your therapist to a adjust medications anxiety and withdrawal symptoms from decreasing alcohol intake. Increase water intake. Continue to use the decreased amount of alcohol. Discontinue or stop self harm with lighters, call [phone] or your therapist when you have these feelings. Use Miralax 1 capful twice daily for constipation, if continued problems, use a Fleets Enema. Return to the emergency department for new, urgent health care needs. All discharge instructions reviewed with patient and/or family. Voiced understanding. EVER KIMBROUGH Aug 04, 2019 17:14
[2019-08-04 17:17] LABS: BILIRUBIN,URINE NEGATIVE (NEGATIVE); CLARITY,URINE CLEAR; COLOR,URINE YELLOW; GLUCOSE, URINE (UA) NEGATIVE (NEGATIVE); KETONES,URINE 3+ (NEGATIVE); LEUKOCYTE ESTERASE ,URINE 1+ (NEGATIVE); NITRITE,URINE NEGATIVE (NEGATIVE); PH,URINE 6.5 (5-9); PROTEIN,URINE 2+ (NEGATIVE)
[2019-08-04 17:17] LABS: BASOPHILS % (AUTO) 1 % (0-10); EOSINOPHILS % (AUTO) 0 % (0-10); HEMATOCRIT 35 % (35-52); HEMOGLOBIN 11.3 G/DL (11.5-16.0); LYMPHOCYTES # (AUTO) 1.3 X 10^3 (1.0-4.0); LYMPHOCYTES % (AUTO) 24 % (12-44); MEAN CORPUSCULAR HEMOGLOBIN 25 PG (25-34); MEAN CORPUSCULAR HGB CONC 33 G/DL (32-36); MEAN CORPUSCULAR VOLUME 77 FL (80-99); MEAN PLATELET VOLUME 9.7 FL (7.4-10.4); MONOCYTES # (AUTO) 0.4 X 10^3 (0.0-1.0); MONOCYTES % (AUTO) 8 % (0-12); NEUTROPHILS # (AUTO) 3.7 X 10^3 (1.8-7.8); NEUTROPHILS % (AUTO) 67 % (42-75); PLATELET COUNT 236 10^3/uL (130-400); RED CELL DISTRIBUTION WIDTH 19.2 % (10.0-14.5); WHITE BLOOD COUNT 5.5 10^3/uL (4.3-11.0)
[2019-08-04 17:33] LABS: ALANINE AMINOTRANSFERASE 61 U/L (0-55); ALBUMIN 4.4 GM/DL (3.2-4.5); ALKALINE PHOSPHATASE 66 U/L (40-136); BILIRUBIN,TOTAL 0.7 MG/DL (0.1-1.0); BUN/CREATININE RATIO 14; CALCIUM 9.3 MG/DL (8.5-10.1); CARBON DIOXIDE 23 MMOL/L (21-32); CHLORIDE 101 MMOL/L (98-107); CREATININE SERUM 0.64 MG/DL (0.60-1.30); GFR ESTIMATED > 60; GLUCOSE 98 MG/DL (70-105); POTASSIUM 3.3 MMOL/L (3.6-5.0); SODIUM 140 MMOL/L (135-145); TOTAL PROTEIN 7.4 GM/DL (6.4-8.2)
[2019-08-04 17:39] LABS: BACTERIA,URINE TRACE /HPF; GRANULAR CASTS,URINE 0-2 /LPF; RBC,URINE 0-2 /HPF; WBC,URINE 0-2 /HPF
[2019-08-04 17:46] LABS: AMPHETAMINE SCREEN, URINE NEGATIVE (NEGATIVE); BARBITURATE SCREEN URINE NEGATIVE (NEGATIVE); BENZODIAZEPINES SCREEN URINE NEGATIVE (NEGATIVE); CANNABINOID SCREEN, URINE POSITIVE (NEGATIVE); COCAINE SCREEN URINE NEGATIVE (NEGATIVE); METHADONE STAT NEGATIVE (NEGATIVE); METHAMPHETAMINE SCREEN URINE S NEGATIVE (NEGATIVE); OPIATE SCREEN URINE NEGATIVE (NEGATIVE); OXYCODONE STAT NEGATIVE (NEGATIVE); PROPOXYPHENE STAT NEGATIVE (NEGATIVE); TRICYCLIC ANTIDEPRESSANTS SCRE NEGATIVE (NEGATIVE)
[2019-08-04] MEDS ORDERED: NS IV 1000 ML 1,000 ML IV SCH (17:51)
[2019-08-04] MEDS ORDERED: LIDOCAINE 2% VISCOUS 15 ML UDC PO ONE (18:00)
[2019-08-04] MEDS ORDERED: MILK OF MAGNESIA 400 MG/5 ML 30 ML UDC PO ONE (18:00)
[2019-08-04] MEDS ORDERED: ANTACID SUSP 30 ML UDC (MYLANTA) PO ONE (18:00)
--- NOTE | 2019-08-04 18:22 | NUR ---
pt to restroom at this time.
[2019-08-04 19:00] VITALS: BP 120/92
== END 2019-08-04 19:01 | disposition home or self-care (01) ==
LOC: ER 16:36 → EDUNIT# 16:36 → ER 19:01
DX: F41.9 Anxiety disorder, unspecified (principal); F10.10 Alcohol abuse, uncomplicated; K59.00 Constipation, unspecified; I10 Essential (primary) hypertension; J45.909 Unspecified asthma, uncomplicated; F90.9 Attention-deficit hyperactivity disorder, unspecified type; F32.9 Major depressive disorder, single episode, unspecified; F60.9 Personality disorder, unspecified; F17.210 Nicotine dependence, cigarettes, uncomplicated; Z88.8 Allergy status to other drugs, medicaments and biological substances; Z91.040 Latex allergy status; Z91.5 Personal history of self-harm
CPT/HCPCS: 36415; 80053; 80306; 81000; 84703; 85025; 93005; 96360

== ENCOUNTER 2019-08-05 00:07 | Emergency (ER) | payer SELFPAY ==
[~2019-08-05] VITALS: Ht 157 cm; Wt 61.7 kg
[2019-08-05] MEDS ORDERED: LACTATED RINGERS 1,000 ML IV ONE (00:29)
[2019-08-05 00:43] LABS: BASOPHILS % (AUTO) 1 % (0-10); BILIRUBIN,URINE NEGATIVE (NEGATIVE); CLARITY,URINE VERY CLOUDY; COLOR,URINE YELLOW; EOSINOPHILS % (AUTO) 0 % (0-10); GLUCOSE, URINE (UA) NEGATIVE (NEGATIVE); HEMATOCRIT 35 % (35-52); KETONES,URINE 2+ (NEGATIVE); LEUKOCYTE ESTERASE ,URINE NEGATIVE (NEGATIVE); LYMPHOCYTES % (AUTO) 20 % (12-44); MEAN CORPUSCULAR HGB CONC 32 G/DL (32-36); MEAN CORPUSCULAR VOLUME 77 FL (80-99); MEAN PLATELET VOLUME 9.1 FL (7.4-10.4); MONOCYTES # (AUTO) 0.7 X 10^3 (0.0-1.0); MONOCYTES % (AUTO) 14 % (0-12); NEUTROPHILS # (AUTO) 3.1 X 10^3 (1.8-7.8); NEUTROPHILS % (AUTO) 65 % (42-75); NITRITE,URINE NEGATIVE (NEGATIVE); PH,URINE 8 (5-9); PLATELET COUNT 226 10^3/uL (130-400); PROTEIN,URINE 2+ (NEGATIVE); RED CELL DISTRIBUTION WIDTH 19.1 % (10.0-14.5); WHITE BLOOD COUNT 4.8 10^3/uL (4.3-11.0)
--- NOTE | 2019-08-05 00:43 | ED General ---
General Chief Complaint: General Problems/Pain Stated Complaint: VOMITING,POSS DETOXING,HALLUCINATING Source of Information: Patient Exam Limitations: No Limitations (SCOTT SCHWARTZ STUDENT) History of Present Illness Date Seen by Provider: Aug 05, 2019 Time Seen by Provider: 00:30 Initial Comments Patient presents to the ED tonight with a 8 hour history of tremors, cold sweats, a "heavy" chest, nausea and vomiting, audio and visual hallucinations. The patient is an alcoholic and has drank a liter of liquor a day for the past year. Her last drink was this morning around 0930 and consisted of a half pint of liquor. A few hours after, she began to experience withdrawal symptoms and was unable to attain a drink because her and her had no money to buy alcohol. She has history of hypertension and an ectopic . She smokes cigarettes as well as marijuana. The patient has been seen quite frequently in the ED over the past year for various complaints, but mostly anxiety like symptoms. Timing/Duration: 4-6 Hours Severity: Moderate Associated Systoms: Chest Pain, Diaphoresis, Nausea/Vomiting (SCOTT SCHWARTZ STUDENT) Allergies and Home Medications Allergies Coded Allergies: escitalopram (Verified Allergy, Unknown, 05/19/18) latex (Verified Allergy, Unknown, 05/19/18) Home Medications Albuterol Sulfate 1 Puff Puff, 2 PUFF IH Q6H PRN for SHORTNESS OF BREATH, (Reported) 1 PUFF = 90 MCG Azithromycin 250 Mg Tablet, 250 MG PO UD TAKE 2 TABLETS ON DAY ONE THEN TAKE 1 TABLET DAILY FOR FOUR MORE DAYS Prescribed by: BEVERLY MUELLER on 06/05/18 0253 Clonidine HCl 0.1 Mg Tablet, 0.1 MG PO BID, (Reported) Patient Home Medication List Home Medication List Reviewed: Yes (ROHIT BETTENCOURT MD) Review of Systems Review of Systems Constitutional: see HPI EENTM: no symptoms reported Respiratory: no symptoms reported Cardiovascular: see HPI Gastrointestinal: see HPI Genitourinary: no symptoms reported : No Musculoskeletal: no symptoms reported Skin: no symptoms reported Psychiatric/Neurological: See HPI Hematologic/Lymphatic: No Symptoms Reported Immunological/Allergic: no symptoms reported (SCOTT SCHWARTZ STUDENT) All Other Systems Reviewed Negative Unless Noted: Yes (ROHIT BETTENCOURT MD) Past Xhuvyea-Gsicgf-Dgbsbz Hx Past Med/Social Hx: Reviewed Nursing Past Med/Soc Hx (ROHIT BETTENCOURT MD) Patient Social History Alcohol Beverage of Choice: Vodka Drug of Choice: THC Type Used: Cigarettes 2nd Hand Smoke Exposure: Yes Recent Foreign Travel: No Contact w/Someone Who Travel: No Recent Hopitalizations: No (SCOTT SCHWARTZ) Immunizations Up To Date Tetanus Booster (TDap): Less than 5yrs Date of Influenza Vaccine: Jul 24, 2014 (SCOTT SCHWARTZ) Seasonal Allergies Seasonal Allergies: No (SCOTT SCHWARTZ) Past Medical History Surgeries: Yes (DENTAL) Abdominal Respiratory: Yes Asthma Cardiac: Yes Hypertension Neurological: No Reproductive Disorders: No Female Reproductive Disorders: Denies Sexually Transmitted Disease: Yes (CHLAMYDIA) HIV/AIDS: No Genitourinary: No Gastrointestinal: No Musculoskeletal: No Endocrine: Yes (hypoglycemia) HEENT: No Cancer: No Psychosocial: Yes (OVERDOSES; ADMITTED TO [facility] 05/28/18. ) ADD/ADHD, Anxiety, Suicide Attempts, Personality Disorder, Depression Integumentary: No Blood Disorders: No Adverse Reaction/Blood Tranf: No (HAS HAD A BLOOD TRANSFUSION AFTER . ) (SCOTT SCHWARTZ) Family Medical History Reviewed Nursing Family Hx (ROHIT BETTENCOURT MD) Patient reports no known family medical history. No Pertinent Family Hx (SCOTT SCHWARTZ) Physical Exam Vital Signs Vital Signs - First Documented 08/05/19 00:15 Temp 36.7 Pulse 86 Resp 18 B/P (MAP) 150/114 (126) Pulse Ox 98 O2 Delivery Room Air (ROHIT BETTENCOURT MD) Vital Signs Capillary Refill : (SCOTT SCHWARTZ STUDENT) Height, Weight, BMI Height: 5'2.00" Weight: 125lbs. 3.0oz. [id number]; 25.00 BMI Method:Stated General Appearance: Anxious, Mild Distress Eyes: Bilateral Eye Normal Inspection, Bilateral Eye PERRL, Bilateral Eye EOMI HEENT: PERRL/EOMI, Pharynx Normal Respiratory: Chest Non Tender, Lungs Clear, Normal Breath Sounds, No Accessory Muscle Use, No Respiratory Distress Cardiovascular: No Edema, No Gallop, No JVD, No Murmur, Normal Peripheral Pulses, Tachycardia Gastrointestinal: Normal Bowel Sounds, No Organomegaly, No Pulsatile Mass, Non Tender, Soft Extremity: Normal Inspection, No Pedal Edema Neurologic/Psychiatric: Alert, Oriented x3 Skin: Normal Color, Warm/Dry Lymphatic: No Adenopathy (SCOTT SCHWARTZ STUDENT) General Appearance: WD/WN, Anxious HEENT: PERRL/EOMI, Pharynx Normal Neck: Non Tender, Supple Respiratory: Lungs Clear, Normal Breath Sounds Cardiovascular: No Murmur, Tachycardia Gastrointestinal: Non Tender, Soft Neurologic/Psychiatric: Alert, Oriented x3 Skin: Warm/Dry, Other (multiple skin lesions to exposed skin in the upper extremities.) (ROHIT BETTENCOURT MD) Progress/Results/Core Measures Suspected Sepsis SIRS Temperature: Pulse: Respiratory Rate: Laboratory Tests 08/05/19 00:30: White Blood Count 4.8 Blood Pressure / Mean: Laboratory Tests 08/05/19 00:30: Platelet Count 226 (SCOTT SCHWARTZ STUDENT) Results/Orders Lab Results Laboratory Tests Test 08/05/19 00:25 08/05/19 00:30 Range/Units Urine Opiates Screen NEGATIVE NEGATIVE Urine Oxycodone Screen NEGATIVE NEGATIVE Urine Methadone Screen NEGATIVE NEGATIVE Urine Propoxyphene Screen NEGATIVE NEGATIVE Urine Barbiturates Screen NEGATIVE NEGATIVE Ur Tricyclic Antidepressants Screen NEGATIVE NEGATIVE Urine Phencyclidine Screen NEGATIVE NEGATIVE Urine Amphetamines Screen NEGATIVE NEGATIVE Urine Methamphetamines Screen NEGATIVE NEGATIVE Urine Benzodiazepines Screen NEGATIVE NEGATIVE Urine Cocaine Screen NEGATIVE NEGATIVE Urine Cannabinoids Screen POSITIVE H NEGATIVE White Blood Count 4.8 4.3-11.0 10^3/uL Red Blood Count 4.49 4.35-5.85 10^6/uL Hemoglobin 11.0 L 11.5-16.0 G/DL Hematocrit 35 35-52 % Mean Corpuscular Volume 77 L 80-99 FL Mean Corpuscular Hemoglobin 24 L 25-34 PG Mean Corpuscular Hemoglobin Concent 32 32-36 G/DL Red Cell Distribution Width 19.1 H 10.0-14.5 % Platelet Count 226 130-400 10^3/uL Mean Platelet Volume 9.1 7.4-10.4 FL Neutrophils (%) (Auto) 65 42-75 % Lymphocytes (%) (Auto) 20 12-44 % Monocytes (%) (Auto) 14 H 0-12 % Eosinophils (%) (Auto) 0 0-10 % Basophils (%) (Auto) 1 0-10 % Neutrophils # (Auto) 3.1 1.8-7.8 X 10^3 Lymphocytes # (Auto) 1.0 1.0-4.0 X 10^3 Monocytes # (Auto) 0.7 0.0-1.0 X 10^3 Eosinophils # (Auto) 0.0 0.0-0.3 10^3/uL Basophils # (Auto) 0.0 0.0-0.1 10^3/uL Urine Color YELLOW Urine Clarity VERY CLOUDY H Urine pH 8 5-9 Urine Specific [place] 1.015 L 1.016-1.022 Urine Protein 2+ H NEGATIVE Urine Glucose (UA) NEGATIVE NEGATIVE Urine Ketones 2+ H NEGATIVE Urine Nitrite NEGATIVE NEGATIVE Urine Bilirubin NEGATIVE NEGATIVE Urine Urobilinogen NORMAL NORMAL MG/DL Urine Leukocyte Esterase NEGATIVE NEGATIVE Urine RBC (Auto) NEGATIVE NEGATIVE Urine RBC 0-2 /HPF Urine WBC NONE /HPF Urine Squamous Epithelial Cells 5-10 /HPF Urine Crystals PRESENT H /LPF Urine Amorphous Sediment LARGE SAMEER PHOSPHATE H /LPF Urine Bacteria NEGATIVE /HPF Urine Casts PRESENT /LPF Urine Coarse Granular Casts 2-5 H /LPF Urine Mucus NEGATIVE /LPF Urine Culture Indicated NO Sodium Level 140 135-145 MMOL/L Potassium Level 3.7 3.6-5.0 MMOL/L Chloride Level 101 98-107 MMOL/L Carbon Dioxide Level 22 21-32 MMOL/L Anion Gap 17 H 5-14 MMOL/L Blood Urea Nitrogen 7 7-18 MG/DL Creatinine 0.73 0.60-1.30 MG/DL Estimat Glomerular Filtration Rate > 60 BUN/Creatinine Ratio 10 Glucose Level 89 70-105 MG/DL Calcium Level 9.1 8.5-10.1 MG/DL Corrected Calcium 8.9 8.5-10.1 MG/DL Total Bilirubin 0.8 0.1-1.0 MG/DL Aspartate Amino Transf (AST/SGOT) 133 H 5-34 U/L Alanine Aminotransferase (ALT/SGPT) 59 H 0-55 U/L Alkaline Phosphatase 58 40-136 U/L Total Protein 7.4 6.4-8.2 GM/DL Albumin 4.3 3.2-4.5 GM/DL Serum Alcohol < 10 <10 MG/DL (ROHIT BETTENCOURT MD) My Orders Orders - ROHIT BETTENCOURT MD Alcohol (08/05/19 00:29) Cbc With Automated Diff (08/05/19:) Comprehensive Metabolic Panel (08/05/19) Drug Screen Stat (Urine) (08/05/19:) Ua Culture If Indicated (08/05/19:) Ed Iv/Invasive Line Start (08/05/19:29) Lactated Ringers (Lr 1000 Ml Iv Solution (08/05/19:29) Ekg Tracing (08/05/19:) Lorazepam Injection (Ativan Injection) (08/05/19 01:00) Rx-Lorazepam (Rx-Ativan) (08/05/19 01:27) (ROHIT BETTENCOURT MD) Medications Given in ED Current Medications Medications Dose Ordered Sig/Sachin Route Start Time Stop Time Status Last Admin Dose Admin Lactated Ringer's 1,000 ml @ 0 mls/hr Q0M ONCE IV 08/05/19 00:29 08/05/19 00:36 DC 08/05/19 00:55 1,000 MLS/HR Lorazepam 0.5 mg ONCE ONCE IVP 08/05/19 01:00 08/05/19 01:01 DC 08/05/19 00:57 0.5 MG (ROHIT BETTENCOURT MD) Vital Signs/I&O 08/05/19 00:15 Temp 36.7 Pulse 86 Resp 18 B/P (MAP) 150/114 (126) Pulse Ox 98 O2 Delivery Room Air (ROHIT BETTENCOURT MD) Vital Signs/I&O Capillary Refill : (SCOTT SCHWARTZ PA STUDENT) Progress Note : Progress Note I seen and evaluated the patient and agree with above except as indicated. After the plan of care. She is here with concerns of alcohol withdrawal. Last drink as stated above. She apparently was seen yesterday for similar complaints but also had reported that she was . This was found to be an accurate and has negative quantitative hCG. Her therapist, thinking that she was , did instruct her to decrease her alcohol intake and ultimately needed to stop in a controlled fashion. She is to follow up with [facility]. Tonight she reports that she is getting shakes and not tolerating well. She doesn't want to stop drinking and states that she will follow up with [facility] but needed to have helped him until that time could occur. Does appear to have some tremors and is slightly tachycardic with hypertension. She does have history of hypertension. Physical exam as above. We will go ahead and check labs and EKG and he had LR 1 L bolus and given Ativan 0.5 mg IV. Monitor patient. 0101: Heart rate now 72-80 and blood pressure improved to 135/112. Pending labs. Monitor patient. 0134: Overall doing better with heart rate of 79. We will give her a go pack of Ativan and she will follow up with [facility] first thing in the morning to discuss outpatient treatment for her alcohol abuse. I will send a copy of the chart for Dr. Price. I will give her Khadijah Hubbard phone number to call for same the morning. Patient and significant other were in agreement with this plan and appreciative. Discharged home with return precautions. Patient verbalize understanding instructions and agreement with plan. (ROHIT BETTENCOURT MD) ECG Initial ECG Impression Date: Aug 05, 2019 Initial ECG Impression Time: 00:31 Initial ECG Rate: 90 Initial ECG Rhythm: Normal Sinus Initial ECG Impression: Normal Comment Sinus rhythm with normal axis. No evidence of ST elevation OR. Borderline tachycardia. Interpreted by me. (ROHIT BETTENCOURT MD) Departure Impression Primary Impression: Alcohol dependence Qualified Codes: F10.230 - Alcohol dependence with withdrawal, uncomplicated Disposition: 01 HOME, SELF-CARE Condition: Improved Departure-Patient Inst. Decision time for Depature: 01:39 (ROHIT BETTENCOURT MD) Referrals: [facility] (PCP/Family) Primary Care Physician RAQUEL PRICE MD Patient Instructions: Alcohol Abuse and Alcoholism (DC) Add. Discharge Instructions: All discharge instructions reviewed with patient and/or family. Voiced understanding. Take medications as directed. It is very important that you call and follow up with [facility] in the morning. Call other hubbard at the number listed and/or go to the clinic to the addiction treatment services and discuss with them. You will need help with your alcohol abuse and they can help you through the withdrawal time period and also other services as needed. Return for worse pain, vomiting, weakness, breathing problems or other concerns as needed. Do not drink alcohol while taking the medication that you were given for alcohol wit hdrawal. Copy Copies To 1: RAQUEL PRICE MD, BRODIE PA STUDENT Aug 05, 2019 00:43 ROHIT BETTENCOURT MD Aug 05, 2019 01:02
[2019-08-05 00:44] LABS: MEAN CORPUSCULAR HEMOGLOBIN 24 PG (25-34)
[2019-08-05 00:54] LABS: AMORPHOUS SEDIMENT,UR LARGE AMOR PHOSPHATE /LPF; BACTERIA,URINE NEGATIVE /HPF; RBC,URINE 0-2 /HPF
[2019-08-05 00:58] LABS: AMPHETAMINE SCREEN, URINE NEGATIVE (NEGATIVE); BARBITURATE SCREEN URINE NEGATIVE (NEGATIVE); BENZODIAZEPINES SCREEN URINE NEGATIVE (NEGATIVE); CANNABINOID SCREEN, URINE POSITIVE (NEGATIVE); COCAINE SCREEN URINE NEGATIVE (NEGATIVE); METHADONE STAT NEGATIVE (NEGATIVE); METHAMPHETAMINE SCREEN URINE S NEGATIVE (NEGATIVE); OPIATE SCREEN URINE NEGATIVE (NEGATIVE); OXYCODONE STAT NEGATIVE (NEGATIVE); PROPOXYPHENE STAT NEGATIVE (NEGATIVE); TRICYCLIC ANTIDEPRESSANTS SCRE NEGATIVE (NEGATIVE)
[2019-08-05] MEDS ORDERED: LORazepam INJ 2 MG/ML (ATIVAN) VIAL IVP ONE (01:00)
[2019-08-05 01:09] LABS: ALANINE AMINOTRANSFERASE 59 U/L (0-55); ALBUMIN 4.3 GM/DL (3.2-4.5); ALKALINE PHOSPHATASE 58 U/L (40-136); BILIRUBIN,TOTAL 0.8 MG/DL (0.1-1.0); BUN/CREATININE RATIO 10; CALCIUM 9.1 MG/DL (8.5-10.1); CARBON DIOXIDE 22 MMOL/L (21-32); CHLORIDE 101 MMOL/L (98-107); CREATININE SERUM 0.73 MG/DL (0.60-1.30); GFR ESTIMATED > 60; GLUCOSE 89 MG/DL (70-105); POTASSIUM 3.7 MMOL/L (3.6-5.0); SODIUM 140 MMOL/L (135-145); TOTAL PROTEIN 7.4 GM/DL (6.4-8.2)
[2019-08-05] MEDS ORDERED: RX-LORAZEPAM (ATIVAN) 0.5 MG TAB PPK#4 PO STA (01:27)
[2019-08-05 02:20] VITALS: BP 165/115
== END 2019-08-05 02:22 | disposition home or self-care (01) ==
LOC: EDUNIT# 00:07 → ER 00:10
DX: F10.20 Alcohol dependence, uncomplicated (principal); J45.909 Unspecified asthma, uncomplicated; I10 Essential (primary) hypertension; F90.9 Attention-deficit hyperactivity disorder, unspecified type; F41.9 Anxiety disorder, unspecified; F32.9 Major depressive disorder, single episode, unspecified; F60.9 Personality disorder, unspecified; F17.210 Nicotine dependence, cigarettes, uncomplicated; Z91.5 Personal history of self-harm; Z88.8 Allergy status to other drugs, medicaments and biological substances; Z91.040 Latex allergy status
CPT/HCPCS: 36415; 80053; 80306; 80320; 81000; 85025; 93005

== ENCOUNTER 2019-09-27 09:51 | Inpatient (IN) | payer SELFPAY ==
[~2019-09-27] VITALS: Ht 157.5 cm; Wt 68.5 kg
--- NOTE | 2019-09-27 12:35 | NUR ---
PETER SCRUGGS admitted to room 426-1, with an admitting diagnosis of ETOH DETOX, on 09/27/19 from DIRECT ADMIT [facility] via AMBULATORY, accompanied by BOYFRIEND AND HER 2 SMALL CHILDREN. PETER SCRUGGS introduced to surroundings, call light, bed controls, phone, TV, temperature control, lights, meal times, smoking policy, visitor policy, side rail policy, bathrooms and showers. Patient Rights given to patient in the handbook. PETER SCRUGGS verbalizes understanding that [facility] is not responsible for the loss or damage to any personal effects or valuables that are kept in the patients possession during their hospitalization. The following Patient Care Plans were discussed with the PATIENT: Discharge Planning, SUBSTANCE ABUSE, ALCOHOL DETOX and KNOWLEDGE DEFICIT. PETER SCRUGGS verbalizes understanding of Interdisciplinary Patient Education. Patient and/or family were informed about the Rapid Response Team and its purpose.
[2019-09-27] MEDS ORDERED: PALI156D IM (13:13)
--- NOTE | 2019-09-27 13:13 | NUR ---
SPOKE WITH THE PT WELL CALLING [facility] TO COMPLETE THE MED REC. I SPOKE WITH SONIA CABAN'S NURSE AND SHE VERIFIED THAT THE PT TAKING INVEGA 154 INJECTION AND THE LAST INJECTION WAS 09-21-2019 PT SAYS SHE DOES NOT TAKE ANY OTC MEDS.
[2019-09-27] MEDS ORDERED: 1/2 NS IV SOLUTION 1,000 ML IV PRN (14:56)
[2019-09-27 14:59] VITALS: BP 135/88
[2019-09-27] MEDS ORDERED: ONDANSETRON 4 MG/2 ML (SDV) Z0FRAN IV PRN (15:00)
[2019-09-27] MEDS ORDERED: ANTACID SUSP 30 ML UDC (MYLANTA) PO PRN (15:00)
[2019-09-27] MEDS ORDERED: D5 1/2 NS 1000 ML IV SOLUTION 1,000 ML IV PRN (15:00)
[2019-09-27] MEDS ORDERED: LORazepam 1 MG (ATIVAN) TAB PO PRN (15:00)
[2019-09-27] MEDS ORDERED: ONDANSETRON 4 MG (ZOFRAN) ORAL DISSOLVE TAB SL PRN (15:00)
[2019-09-27] MEDS ORDERED: LORazepam INJ 2 MG/ML (ATIVAN) VIAL IM/IV PRN (15:00)
[2019-09-27] MEDS ORDERED: SENNA W/DOCUSATE (SENOKOT S) TABLET PO PRN (15:00)
[2019-09-27 16:00] VITALS: BP 119/78
[2019-09-27] MEDS: NICOTINE 14 MG (NICODERM) PATCH TD SCH (16:05)
[2019-09-27] MEDS: LORazepam 1 MG (ATIVAN) TAB PO SCH ×2 (16:05→22:07)
[2019-09-27 16:22] LABS: BILIRUBIN,URINE NEGATIVE (NEGATIVE); CLARITY,URINE CLOUDY; COLOR,URINE YELLOW; GLUCOSE, URINE (UA) NEGATIVE (NEGATIVE); KETONES,URINE NEGATIVE (NEGATIVE); LEUKOCYTE ESTERASE ,URINE NEGATIVE (NEGATIVE); NITRITE,URINE NEGATIVE (NEGATIVE); PROTEIN,URINE NEGATIVE (NEGATIVE)
[2019-09-27 16:23] LABS: BASOPHILS % (AUTO) 1 % (0-10); EOSINOPHILS # (AUTO) 0.1 10^3/uL (0.0-0.3); EOSINOPHILS % (AUTO) 2 % (0-10); HEMATOCRIT 33 % (35-52); HEMOGLOBIN 10.4 G/DL (11.5-16.0); LYMPHOCYTES # (AUTO) 1.4 X 10^3 (1.0-4.0); LYMPHOCYTES % (AUTO) 25 % (12-44); MEAN CORPUSCULAR HEMOGLOBIN 25 PG (25-34); MEAN CORPUSCULAR HGB CONC 32 G/DL (32-36); MEAN CORPUSCULAR VOLUME 79 FL (80-99); MEAN PLATELET VOLUME 9.6 FL (7.4-10.4); MONOCYTES # (AUTO) 0.7 X 10^3 (0.0-1.0); MONOCYTES % (AUTO) 12 % (0-12); NEUTROPHILS # (AUTO) 3.5 X 10^3 (1.8-7.8); NEUTROPHILS % (AUTO) 60 % (42-75); PLATELET COUNT 332 10^3/uL (130-400); RED CELL DISTRIBUTION WIDTH 16.4 % (10.0-14.5); WHITE BLOOD COUNT 5.8 10^3/uL (4.3-11.0)
[2019-09-27 16:47] LABS: ALANINE AMINOTRANSFERASE 49 U/L (0-55); ALBUMIN 4.7 GM/DL (3.2-4.5); ALKALINE PHOSPHATASE 63 U/L (40-136); BILIRUBIN,TOTAL 0.2 MG/DL (0.1-1.0); BUN/CREATININE RATIO 16; CALCIUM 9.3 MG/DL (8.5-10.1); CARBON DIOXIDE 23 MMOL/L (21-32); CHLORIDE 104 MMOL/L (98-107); CREATININE SERUM 0.74 MG/DL (0.60-1.30); GFR ESTIMATED > 60; GLUCOSE 86 MG/DL (70-105); POTASSIUM 4.2 MMOL/L (3.6-5.0); SODIUM 139 MMOL/L (135-145)
[2019-09-27 16:49] LABS: BACTERIA,URINE FEW /HPF
[2019-09-27 16:50] LABS: AMORPHOUS SEDIMENT,UR MOD AMOR PHOSPHATE /LPF
[2019-09-27 17:56] LABS: INR 0.9 (0.8-1.4); PROTHROMBIN TIME PATIENT 12.1 SEC (12.2-14.7)
[2019-09-27] MEDS ORDERED: ACETAMINOPHEN 500 MG TAB (TYLENOL) PO PRN (18:45)
[2019-09-27 20:00] VITALS: BP 119/76
[2019-09-27] MEDS: MAGNESIUM OXIDE (MAG-OX)400 MG TAB PO SCH (21:59)
[2019-09-27] MEDS ORDERED: IBUPROFEN 800 MG (MOTRIN) TAB PO SCH (22:00)
--- NOTE | 2019-09-27 22:05 | NUR ---
Dr. Pegureo notified of pt's drowsiness and scheduled to rec Ativan 2mg at 2100. Instructed to hold 2100 dose. Rec new order from to change scheduled Motrin to q 8 hr PRN.
[2019-09-27] MEDS ORDERED: IBUPROFEN 800 MG (MOTRIN) TAB PO PRN (22:15)
[2019-09-28 00:30] VITALS: BP 115/72
[2019-09-28 04:51] VITALS: BP 113/68
[2019-09-28] MEDS: THIAMINE 100 MG (VITAMIN B-1) TAB PO SCH (06:23)
[2019-09-28] MEDS: MULTIVIT W/MINERALS TAB (THERAGRAN M) PO SCH (06:23)
[2019-09-28 08:30] VITALS: BP 113/58
[2019-09-28] MEDS ORDERED: NICOTINE PATCH REMOVAL TP SCH (08:59)
[2019-09-28] MEDS: FOLIC ACID 1 MG TAB PO SCH (10:35)
[2019-09-28] MEDS: LORazepam 1 MG (ATIVAN) TAB PO SCH ×4 (10:35→22:55)
[2019-09-28] MEDS: MAGNESIUM OXIDE (MAG-OX)400 MG TAB PO SCH ×2 (10:35→22:55)
[2019-09-28] MEDS: NICOTINE 14 MG (NICODERM) PATCH TD SCH (10:36)
[2019-09-28] MEDS: NICOTINE PATCH REMOVAL TP SCH (10:36)
[2019-09-28 12:00] VITALS: BP 105/55
[2019-09-28 16:00] VITALS: BP 116/73
--- NOTE | 2019-09-28 16:00 | NUR ---
CM/SS: Visited with pt as to her discharge plan to [facility] per consult. Plan: Follow up with [facility] in [place], [place] ([phone]) to confirm time of admission on September. Summary: Pt reports it has been arranged for her to go to [facility] in [place] for in patient treatment. Call to [facility] in they verify that pt is scheduled to admit there at 10am on . Pt reports having been in a psychiatric placement in the past and also at drug and alcohol treatment as well. Pt seems motivated to get help and seek treatment.
[2019-09-28 20:00] VITALS: BP 120/79
[2019-09-29] MEDS: MAGNESIUM OXIDE (MAG-OX)400 MG TAB PO SCH (09:40)
[2019-09-29] MEDS: MULTIVIT W/MINERALS TAB (THERAGRAN M) PO SCH (09:40)
[2019-09-29] MEDS: FOLIC ACID 1 MG TAB PO SCH (09:41)
[2019-09-29] MEDS: THIAMINE 100 MG (VITAMIN B-1) TAB PO SCH (09:41)
[2019-09-29] MEDS: LORazepam 1 MG (ATIVAN) TAB PO SCH (09:41)
[2019-09-29] MEDS: NICOTINE 14 MG (NICODERM) PATCH TD SCH (09:43)
[2019-09-29] MEDS: NICOTINE PATCH REMOVAL TP SCH (09:43)
--- NOTE | 2019-09-29 10:31 | Discharge Instructions ---
Discharge [facility] Reconcile Patient Problems Problems Reviewed?: Yes Discharge Medications New, Converted or Re-Newed RX: Other (will send from [facility] outpatient chart; pt to order picker/assembler at [facility] (ativan taper)) Patient Instructions Patient Instructions KINDLY PROCEED TO [facility] BY 10AM WE HAVE PREVIOUSLY ARRANGED. Goal/Follow Up Appt: PLEASE RETURN TO DR [facility] AT [facility] WHEN DISCHARGED FROM [facility] Patient Instructions: PLEASE CHECK IN ATIVAN TAPER ONCE YOU ARRIVE AT [facility]. Return to The Hospital For: SIGNS OF ALCOHOL WITHDRAWAL INCLUDING TREMORS, HALLUCINATIONS Activity & Diet Discharge Diet: No Restrictions Activity as Tolerated: Yes (PNEUMOVAX 23 - DUE TO CHRONIC LIVER DISEASE) Orders-Post D/C & Referrals Pneu Vac Indicated: Yes Copy Copies To 1: RAQUEL PRICE MD, JULIE A MD Sep 29, 2019 10:31
--- NOTE | 2019-09-29 10:32 | Progress Note ---
Subjective Subjective/Events-last exam LATE ENTRY NOTE DUE TO COMPUTER ISSUES. Pt states she had a rough night, starting to feel withdrawals more. used the PRN ativan overnight. no tremors, just overall doesn't feel well. no hallucinations, tactile disturbances. able to eat/drink. Review of Systems General: No Chills, No Night Sweats, No Fatigue, No Malaise, No Appetite, No Other Objective Exam Last Set of Vital Signs Vital Signs Date Time Temp Pulse Resp B/P (MAP) Pulse Ox O2 Delivery O2 Flow Rate FiO2 09/28/19 20:10 Room Air 09/28/19 20:00 36.3 104 20 120/79 (93) 99 Capillary Refill : I&O Intake and Output 09/29/19 00:00 Intake Total 1780 ml Output Total 250 ml Balance 1530 ml Intake Oral 1780 ml Output Urine Total 250 ml # Voids 5 General: Alert, Oriented X3, Cooperative, No Acute Distress Lungs: Clear to Auscultation, Normal Air Movement Heart: Regular Rate, Normal S1, Normal S2, No Murmurs Abdomen: Normal Bowel Sounds, Soft, No Tenderness, No Hepatosplenomegaly, No Masses Extremities: No Clubbing, No Cyanosis, No Edema Psych/Mental Status: Mental Status NL, Mood NL Assessment/Plan Assessment/Plan Admission Status: Inpatient Order (span 2 midnights) Reason for Inpatient Admission: FORMAL ALCOHOL DETOX (1) Uncomplicated alcohol withdrawal Onset Date: ~ 09/28/2019 Status: Acute Assessment & Plan: Pt remains highly motivated to undergo medical detox with plans to go inpatient on . Will continue the ativan, taper today. Plan to stay at 2mg QID with 1mg at night if need be. Can decrease to 1mg QID tomorrow. Planned DC on morning early. Clinical Quality Measures DVT/VTE Risk/Contraindication: Risk Factor Score Per Nursin RFS Level Per Nursing on Admit: 1=Low/No VTE PPX Copy Copies To 1: RAQUEL PRICE MD, JULIE A MD Sep 29, 2019 10:32
--- NOTE | 2019-09-29 10:33 | Progress Note ---
Objective Exam Last Set of Vital Signs Vital Signs Date Time Temp Pulse Resp B/P (MAP) Pulse Ox O2 Delivery O2 Flow Rate FiO2 09/28/19 20:10 Room Air 09/28/19 20:00 36.3 104 20 120/79 (93) 99 Capillary Refill : I&O Intake and Output 09/29/19 00:00 Intake Total 1780 ml Output Total 250 ml Balance 1530 ml Intake Oral 1780 ml Output Urine Total 250 ml # Voids 5 Clinical Quality Measures DVT/VTE Risk/Contraindication: Risk Factor Score Per Nursin RFS Level Per Nursing on Admit: 1=Low/No VTE PPX RAQUEL PRICE MD Sep 29, 2019 10:33
[2019-09-29] MEDS ORDERED: LORazepam 1 MG (ATIVAN) TAB PO SCH (13:00)
[2019-09-29 14:27] VITALS: BP 120/79
--- NOTE | 2019-09-30 20:01 | Physician Query-Final Dx ---
SAI CUELLAR 09/30/192000: Final Diagnosis Give Final Diagnosis Please give Final Diagnosis RAQUEL PRICE MD 10/14/19 1358: Final Diagnosis Give Final Diagnosis UNCOMPLICATED ALCOHOL WITHDRAWAL SAI CUELLAR Sep 30, 2019 20:01 RAQUEL PRICE MD Oct 14, 2019 13:58
--- NOTE | 2019-10-14 14:06 | Discharge Summary ---
Diagnosis/Chief Complaint Date of Admission Sep 27, 2019 at 15:13 Date of Discharge Sep 29, 2019 at 14:32 Admission Diagnosis Admission Diagnosis UNCOMPLICATED ALCOHOL WITHDRAWAL Discharge Diagnosis UNCOMPLICATED ALCOHOL WITHDRAWAL Problems/Diagnosis: (1) Uncomplicated alcohol withdrawal Assessment & Plan: Pt remains highly motivated to undergo medical detox with plans to go inpatient on . Will continue the ativan, taper today. Plan to stay at 2mg QID with 1mg at night if need be. Can decrease to 1mg QID tomorrow. Planned DC on morning early. Status: Acute Chief Complaint/HPI Chief Complaint/HPI 23YO WOMAN WITH SEVERE ALCOHOL USE DISORDER HIGH RISK FOR COMPLICATIONS FROM ALCOHOL WITHDRAWAL ADMITTED FOR INPATIENT OBSERVATION DURING DETOX. Discharge Summary-Simple/Stand Discharge Physical Examination Allergies: Coded Allergies: escitalopram (Verified Allergy, Unknown, 05/19/18) latex (Verified Allergy, Unknown, 05/19/18) General Appearance: Alert, Oriented X3, Cooperative, No Acute Distress Respiratory: Clear to Auscultation, Normal Air Movement Cardiovascular: Regular Rate, Normal S1, Normal S2, No Murmurs, Gallops, Rubs Abdominal: Normal Bowel Sounds, Soft, No Tenderness, No Hepatosplenomegaly, No Masses Extremities: No Clubbing, No Cyanosis, No Edema Neuro: Normal Gait Psych/Mental Status: Mental Status NL, Mood NL Hospital Course Was the Problem List Reviewed?: Yes See final discharge diagnosis. Discussion & Recommendations Plan was for patient to stay until discharge to her inpatient treatment facility. Patient became somewhat agitated on the second day, stating she didn't have anything to do and was feeling "locked in." Patient arranged to see Khadijah and myself at discharge and will be going to her SO's mother's house where no alcohol will be available. I will discharge her with an ativan taper which she will present at the rehab facility tomorrow morning. Discharge Instructions to patient/family Please see electronic discharge instructions given to patient. Discharge Medications Reviewed and agree with Discharge Medication list on patient's Discharge Instruction sheet Clinical Quality Measures DVT/VTE Risk/Contraindication: Risk Factor Score Per Nursin RFS Level Per Nursing on Admit: 1=Low/No VTE PPX Copy Copies To 1: RAQUEL PRICE MD, JULIE A MD Oct 14, 2019 14:06
== END 2019-09-29 14:32 | disposition home or self-care (01) | DRG 897 ==
LOC: EDSTATUS 09:51 → 4TH 12:37 → UNDOADMOB 12:37 → 4TH 12:37 → EDSTATUS 12:43 → OBSVTOIN 15:13 → INTOOBSV 15:13 → UNDODISIN 09-29 14:32
PROVIDERS: ADMIT Family Medicine; ATTEND Pediatrics
DX: F10.239 Alcohol dependence with withdrawal, unspecified (principal); F31.32 Bipolar disorder, current episode depressed, moderate; F41.9 Anxiety disorder, unspecified; F90.9 Attention-deficit hyperactivity disorder, unspecified type; F60.3 Borderline personality disorder; F17.210 Nicotine dependence, cigarettes, uncomplicated
CPT/HCPCS: 36415; 80053; 80320; 81000; 84703; 85025; 85610; 85730; 86703

== ENCOUNTER → 2019-10-05 | Outpatient (CLI) | payer SELFPAY ==
[~2019-10-05] MED LIST changes: +PALI156D IM
== END ==
LOC: RAD 09:28
PROVIDERS: ATTEND Nurse Practitioner Community Health
DX: R79.89 Other specified abnormal findings of blood chemistry (principal); Z53.8 Procedure and treatment not carried out for other reasons

== ENCOUNTER 2019-12-02 12:52 | Emergency (ER) | payer SELFPAY ==
[~2019-12-02] VITALS: Ht 157 cm; Wt 76.2 kg
[~2019-12-02 12:52] MED LIST changes: -AZIT500T5 PO; +AZIT500T9 PO
--- NOTE | 2019-12-02 13:06 | ED Psychosocial ---
General Chief Complaint: Substance Abuse Stated Complaint: ALCOHOL INTOXICATION Source: patient Exam Limitations: no limitations History of Present Illness Date Seen by Provider: Dec 02, 2019 Time Seen by Provider: 13:05 Initial Comments To ER with reports of "alcohol poisoning". She's had a liter of vodka to drink today, when asked what symptoms she has she states "you guys keep asking but I just need tested" Timing/Duration: constant, getting worse Severity: moderate Associated Symptoms: other (denies suicidal or homicidal thoughts) Allergies and Home Medications Allergies Coded Allergies: escitalopram (Verified Allergy, Unknown, 05/19/18) latex (Verified Allergy, Unknown, 05/19/18) Home Medications Paliperidone Palmitate 156 Mg/1 Ml Syringe, 156 MG IM MONTHLY, (Reported) Patient Home Medication List Home Medication List Reviewed: Yes Review of Systems Constitutional: see HPI EENTM: see HPI Respiratory: no symptoms reported Cardiovascular: no symptoms reported Genitourinary: no symptoms reported Musculoskeletal: no symptoms reported Skin: no symptoms reported Psychiatric/Neurological: See HPI Past Weckfgi-Rwstmd-Ppcwhq Hx Patient Social History Alcohol Beverage of Choice: Vodka Drug of Choice: THC Type Used: Cigarettes 2nd Hand Smoke Exposure: Yes Recent Hopitalizations: No Immunizations Up To Date Tetanus Booster (TDap): Less than 5yrs PED Vaccines UTD: Yes Date of Influenza Vaccine: Jul 24, 2014 Seasonal Allergies Seasonal Allergies: No Past Medical History Surgeries: Yes (ectopic ) Abdominal Respiratory: Yes Asthma Cardiac: Yes Hypertension Neurological: No Reproductive Disorders: No Female Reproductive Disorders: Denies Sexually Transmitted Disease: Yes (CHLAMYDIA) HIV/AIDS: No Genitourinary: No Gastrointestinal: No Musculoskeletal: No Endocrine: No HEENT: No Cancer: No Psychosocial: Yes (Alcohol abuse) ADD/ADHD, Anxiety, Suicide Attempts, Personality Disorder, Depression Integumentary: Yes (SPOTS,SCARS ON ARMS) Blood Disorders: No Adverse Reaction/Blood Tranf: No (HAS HAD A BLOOD TRANSFUSION AFTER . ) Family Medical History Cardiovascular disease PATERNAL GRANDFATHER Psychosocial problem 19 MOTHER (BIPOLAR) No Pertinent Family Hx Physical Exam Vital Signs - First Documented 12/02/19 13:00 Temp 36.5 Pulse 130 Resp 16 B/P (MAP) 126/86 (99) Pulse Ox 97 O2 Delivery Room Air Capillary Refill : Height, Weight, BMI Height: 5'2.00" Weight: 125lbs. 3.0oz. [id number]; 27.61 BMI Method:Stated General Appearance: WD/WN, no apparent distress HEENT: PERRL/EOMI, normal ENT inspection Respiratory: no respiratory distress, no accessory muscle use Cardiovascular: no murmur, tachycardia Gastrointestinal: normal bowel sounds, soft Neurologic/Psychiatric: alert, normal mood/affect, oriented x 3 Appearance/Memory: disheveled Thoughts/Hallucinations: normal thought pattern, no apparent hallucination Skin: normal color, warm/dry Progress/Results/Core Measures Results/Orders Lab Results Laboratory Tests Test 12/02/19 13:11 12/02/19 13:15 Range/Units Urine Color YELLOW Urine Clarity CLEAR Urine pH 6.0 5-9 Urine Specific [place] 1.010 L 1.016-1.022 Urine Protein NEGATIVE NEGATIVE Urine Glucose (UA) NEGATIVE NEGATIVE Urine Ketones NEGATIVE NEGATIVE Urine Nitrite NEGATIVE NEGATIVE Urine Bilirubin NEGATIVE NEGATIVE Urine Urobilinogen 0.2 < = 1.0 MG/DL Urine Leukocyte Esterase NEGATIVE NEGATIVE Urine RBC (Auto) NEGATIVE NEGATIVE Urine RBC NONE /HPF Urine WBC NONE /HPF Urine Squamous Epithelial Cells 0-2 /HPF Urine Crystals NONE /LPF Urine Bacteria TRACE /HPF Urine Casts NONE /LPF Urine Mucus NEGATIVE /LPF Urine Culture Indicated NO Urine Opiates Screen NEGATIVE NEGATIVE Urine Oxycodone Screen NEGATIVE NEGATIVE Urine Methadone Screen NEGATIVE NEGATIVE Urine Propoxyphene Screen NEGATIVE NEGATIVE Urine Barbiturates Screen NEGATIVE NEGATIVE Ur Tricyclic Antidepressants Screen NEGATIVE NEGATIVE Urine Phencyclidine Screen NEGATIVE NEGATIVE Urine Amphetamines Screen NEGATIVE NEGATIVE Urine Methamphetamines Screen NEGATIVE NEGATIVE Urine Benzodiazepines Screen NEGATIVE NEGATIVE Urine Cocaine Screen NEGATIVE NEGATIVE Urine Cannabinoids Screen NEGATIVE NEGATIVE White Blood Count 5.2 4.3-11.0 10^3/uL Red Blood Count 5.22 4.35-5.85 10^6/uL Hemoglobin 12.6 11.5-16.0 G/DL Hematocrit 39 35-52 % Mean Corpuscular Volume 75 L 80-99 FL Mean Corpuscular Hemoglobin 24 L 25-34 PG Mean Corpuscular Hemoglobin Concent 32 32-36 G/DL Red Cell Distribution Width 18.0 H 10.0-14.5 % Platelet Count 254 130-400 10^3/uL Mean Platelet Volume 8.8 7.4-10.4 FL Neutrophils (%) (Auto) 53 42-75 % Lymphocytes (%) (Auto) 37 12-44 % Monocytes (%) (Auto) 8 0-12 % Eosinophils (%) (Auto) 1 0-10 % Basophils (%) (Auto) 1 0-10 % Neutrophils # (Auto) 2.7 1.8-7.8 X 10^3 Lymphocytes # (Auto) 1.9 1.0-4.0 X 10^3 Monocytes # (Auto) 0.4 0.0-1.0 X 10^3 Eosinophils # (Auto) 0.1 0.0-0.3 10^3/uL Basophils # (Auto) 0.0 0.0-0.1 10^3/uL Prothrombin Time 12.6 12.2-14.7 SEC INR Comment 0.9 0.8-1.4 Sodium Level 142 135-145 MMOL/L Potassium Level 3.7 3.6-5.0 MMOL/L Chloride Level 104 98-107 MMOL/L Carbon Dioxide Level 25 21-32 MMOL/L Anion Gap 13 5-14 MMOL/L Blood Urea Nitrogen 14 7-18 MG/DL Creatinine 0.80 0.60-1.30 MG/DL Estimat Glomerular Filtration Rate > 60 BUN/Creatinine Ratio 18 Glucose Level 114 H 70-105 MG/DL Calcium Level 8.9 8.5-10.1 MG/DL Corrected Calcium 8.5-10.1 MG/DL Total Bilirubin 0.3 0.1-1.0 MG/DL Aspartate Amino Transf (AST/SGOT) 78 H 5-34 U/L Alanine Aminotransferase (ALT/SGPT) 37 0-55 U/L Alkaline Phosphatase 65 40-136 U/L Total Protein 8.4 H 6.4-8.2 GM/DL Albumin 4.8 H 3.2-4.5 GM/DL Lipase 27 8-78 U/L Serum Test, Qualitative NEGATIVE NEGATIVE Serum Alcohol 332 *H <10 MG/DL My Orders Orders - TRACY RAZA [employer] ATTENDANT Cbc With Automated Diff (12/02/19 13:03) Comprehensive Metabolic Panel (12/02/19 13:03) Lipase (12/02/19 13:03) Ua Culture If Indicated (12/02/19 13:03) Hcg,Qualitative Serum (12/02/19 13:03) Alcohol (12/02/19 13:03) Protime With Inr (12/02/19 13:03) Ed Iv/Invasive Line Start (12/02/19 13:03) Drug Screen Stat (Urine) (12/02/19 13:03) Ondansetron Injection (Zofran Injectio (12/02/19 13:15) Ns Iv 1000 Ml (Sodium Chloride 0.9%) (12/02/19 13:15) Medications Given in ED Current Medications Medications Dose Ordered Sig/Sachin Route Start Time Stop Time Status Last Admin Dose Admin Ondansetron HCl 4 mg ONCE ONCE IVP 12/02/19 13:15 12/02/19 13:16 DC 12/02/19 13:22 4 MG Vital Signs/I&O 12/02/19 13:00 Temp 36.5 Pulse 130 Resp 16 B/P (MAP) 126/86 (99) Pulse Ox 97 O2 Delivery Room Air Departure Communication (Admissions) Despite an alcohol level of 330. She is alert talkative and conversing appropriately. Impression Primary Impression: Alcohol use Disposition: HOME, SELF-CARE Condition: Stable Departure-Patient Inst. Decision time for Depature: 14:36 [address]errals: [facility] (PCP/Family) Primary Care Physician Patient Instructions: ALCOHOL AND SUBSTANCE ABUSE TRACY RAZA APRN Dec 02, 2019 13:06
[2019-12-02 13:15] LABS: BILIRUBIN,URINE NEGATIVE (NEGATIVE); CLARITY,URINE CLEAR; COLOR,URINE YELLOW; GLUCOSE, URINE (UA) NEGATIVE (NEGATIVE); KETONES,URINE NEGATIVE (NEGATIVE); LEUKOCYTE ESTERASE ,URINE NEGATIVE (NEGATIVE); NITRITE,URINE NEGATIVE (NEGATIVE); PROTEIN,URINE NEGATIVE (NEGATIVE)
[2019-12-02] MEDS ORDERED: ONDANSETRON 4 MG/2 ML (SDV) Z0FRAN IVP ONE (13:15)
[2019-12-02] MEDS ORDERED: NS IV 1000 ML 1,000 ML IV SCH (13:15)
[2019-12-02 13:22] LABS: BACTERIA,URINE TRACE /HPF; SQUAMOUS EPITHELIAL CELL,UR 0-2 /HPF
[2019-12-02 13:23] LABS: BASOPHILS % (AUTO) 1 % (0-10); EOSINOPHILS # (AUTO) 0.1 10^3/uL (0.0-0.3); EOSINOPHILS % (AUTO) 1 % (0-10); HEMATOCRIT 39 % (35-52); HEMOGLOBIN 12.6 G/DL (11.5-16.0); LYMPHOCYTES # (AUTO) 1.9 X 10^3 (1.0-4.0); LYMPHOCYTES % (AUTO) 37 % (12-44); MEAN CORPUSCULAR HEMOGLOBIN 24 PG (25-34); MEAN CORPUSCULAR HGB CONC 32 G/DL (32-36); MEAN CORPUSCULAR VOLUME 75 FL (80-99); MEAN PLATELET VOLUME 8.8 FL (7.4-10.4); MONOCYTES # (AUTO) 0.4 X 10^3 (0.0-1.0); MONOCYTES % (AUTO) 8 % (0-12); NEUTROPHILS # (AUTO) 2.7 X 10^3 (1.8-7.8); NEUTROPHILS % (AUTO) 53 % (42-75); PLATELET COUNT 254 10^3/uL (130-400); WHITE BLOOD COUNT 5.2 10^3/uL (4.3-11.0)
[2019-12-02 13:28] LABS: AMPHETAMINE SCREEN, URINE NEGATIVE (NEGATIVE); BARBITURATE SCREEN URINE NEGATIVE (NEGATIVE); BENZODIAZEPINES SCREEN URINE NEGATIVE (NEGATIVE); CANNABINOID SCREEN, URINE NEGATIVE (NEGATIVE); COCAINE SCREEN URINE NEGATIVE (NEGATIVE); METHADONE STAT NEGATIVE (NEGATIVE); METHAMPHETAMINE SCREEN URINE S NEGATIVE (NEGATIVE); OPIATE SCREEN URINE NEGATIVE (NEGATIVE); OXYCODONE STAT NEGATIVE (NEGATIVE); PROPOXYPHENE STAT NEGATIVE (NEGATIVE); TRICYCLIC ANTIDEPRESSANTS SCRE NEGATIVE (NEGATIVE)
[2019-12-02 13:36] LABS: INR 0.9 (0.8-1.4); PROTHROMBIN TIME PATIENT 12.6 SEC (12.2-14.7)
[2019-12-02 13:50] LABS: ALANINE AMINOTRANSFERASE 37 U/L (0-55); ALBUMIN 4.8 GM/DL (3.2-4.5); ALKALINE PHOSPHATASE 65 U/L (40-136); BILIRUBIN,TOTAL 0.3 MG/DL (0.1-1.0); BUN/CREATININE RATIO 18; CALCIUM 8.9 MG/DL (8.5-10.1); CARBON DIOXIDE 25 MMOL/L (21-32); CHLORIDE 104 MMOL/L (98-107); GFR ESTIMATED > 60; GLUCOSE 114 MG/DL (70-105); LIPASE 27 U/L (8-78); POTASSIUM 3.7 MMOL/L (3.6-5.0); SODIUM 142 MMOL/L (135-145); TOTAL PROTEIN 8.4 GM/DL (6.4-8.2)
[2019-12-02 14:43] VITALS: BP 124/96
== END 2019-12-02 14:46 | disposition home or self-care (01) ==
LOC: EDUNIT# 12:52 → ER 12:54
DX: F10.929 Alcohol use, unspecified with intoxication, unspecified (principal); Z91.040 Latex allergy status; Z88.8 Allergy status to other drugs, medicaments and biological substances; Z77.22 Contact with and (suspected) exposure to environmental tobacco smoke (acute) (chronic); Z82.49 Family history of ischemic heart disease and other diseases of the circulatory system; Y90.8 Blood alcohol level of 240 mg/100 ml or more
CPT/HCPCS: 36415; 80053; 80306; 80320; 81000; 83690; 84703; 85025; 85610

== ENCOUNTER 2019-12-04 12:27 | Emergency (ER) | payer SELFPAY ==
[~2019-12-04] VITALS: Ht 157.4 cm; Wt 74.8 kg
[2019-12-04] MEDS ORDERED: NS IV 1000 ML 1,000 ML IV SCH ×2 (12:59→14:49)
[2019-12-04] MEDS ORDERED: ONDANSETRON 4 MG/2 ML (SDV) Z0FRAN IVP ONE (13:00)
[2019-12-04 13:15] LABS: BILIRUBIN,URINE NEGATIVE (NEGATIVE); CLARITY,URINE CLEAR; COLOR,URINE YELLOW; GLUCOSE, URINE (UA) NEGATIVE (NEGATIVE); KETONES,URINE NEGATIVE (NEGATIVE); LEUKOCYTE ESTERASE ,URINE NEGATIVE (NEGATIVE); NITRITE,URINE NEGATIVE (NEGATIVE); PROTEIN,URINE TRACE (NEGATIVE)
[2019-12-04 13:31] LABS: BASOPHILS % (AUTO) 1 % (0-10); EOSINOPHILS % (AUTO) 0 % (0-10); HEMATOCRIT 39 % (35-52); HEMOGLOBIN 12.6 G/DL (11.5-16.0); LYMPHOCYTES # (AUTO) 0.8 X 10^3 (1.0-4.0); LYMPHOCYTES % (AUTO) 10 % (12-44); MEAN CORPUSCULAR HEMOGLOBIN 24 PG (25-34); MEAN CORPUSCULAR HGB CONC 32 G/DL (32-36); MEAN CORPUSCULAR VOLUME 75 FL (80-99); MONOCYTES # (AUTO) 0.5 X 10^3 (0.0-1.0); MONOCYTES % (AUTO) 6 % (0-12); NEUTROPHILS # (AUTO) 7.1 X 10^3 (1.8-7.8); NEUTROPHILS % (AUTO) 84 % (42-75); PLATELET COUNT 236 10^3/uL (130-400); RED CELL DISTRIBUTION WIDTH 17.9 % (10.0-14.5); WHITE BLOOD COUNT 8.4 10^3/uL (4.3-11.0)
--- NOTE | 2019-12-04 13:35 | NUR ---
[facility] called at this time.
[2019-12-04 13:39] LABS: AMPHETAMINE SCREEN, URINE NEGATIVE (NEGATIVE); BARBITURATE SCREEN URINE NEGATIVE (NEGATIVE); BENZODIAZEPINES SCREEN URINE NEGATIVE (NEGATIVE); CANNABINOID SCREEN, URINE NEGATIVE (NEGATIVE); COCAINE SCREEN URINE NEGATIVE (NEGATIVE); METHADONE STAT NEGATIVE (NEGATIVE); METHAMPHETAMINE SCREEN URINE S NEGATIVE (NEGATIVE); OPIATE SCREEN URINE NEGATIVE (NEGATIVE); OXYCODONE STAT NEGATIVE (NEGATIVE); PROPOXYPHENE STAT NEGATIVE (NEGATIVE); TRICYCLIC ANTIDEPRESSANTS SCRE NEGATIVE (NEGATIVE)
[2019-12-04 13:46] LABS: AMORPHOUS SEDIMENT,UR FEW AMOR URATES /LPF; BACTERIA,URINE NEGATIVE /HPF; HYALINE CASTS, URINE 0-2 /LPF
[2019-12-04 13:52] LABS: ALANINE AMINOTRANSFERASE 42 U/L (0-55); ALBUMIN 4.7 GM/DL (3.2-4.5); ALKALINE PHOSPHATASE 63 U/L (40-136); BILIRUBIN,TOTAL 0.4 MG/DL (0.1-1.0); BUN/CREATININE RATIO 23; CALCIUM 9.4 MG/DL (8.5-10.1); CARBON DIOXIDE 20 MMOL/L (21-32); CHLORIDE 99 MMOL/L (98-107); GFR ESTIMATED > 60; GLUCOSE 162 MG/DL (70-105); POTASSIUM 3.8 MMOL/L (3.6-5.0); SALICYLATE < 5.0 MG/DL (5.0-20.0); SODIUM 138 MMOL/L (135-145); TOTAL PROTEIN 8.4 GM/DL (6.4-8.2)
--- NOTE | 2019-12-04 13:52 | NUR ---
Genaro from [facility] called back and stated pt couldn't be screened until ETOH was at legal level and that pt didn't need to be screened if pt was willing to go in pt.
[2019-12-04 13:57] LABS: ACETAMINOPHEN < 10 UG/ML (10-30)
[2019-12-04] MEDS ORDERED: TETANUS,DIPTH,PERTUSS P/F (BOOSTRIX) 0.5 ML VIAL IM ONE (14:00)
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
[2019-12-04] MEDS ORDERED: LORazepam INJ 2 MG/ML (ATIVAN) VIAL IVP STA ×2 (14:42→17:23)
--- NOTE | 2019-12-04 15:07 | NUR ---
Pt eating meal tray at this time.
[2019-12-04] MEDS ORDERED: NICOTINE 21 MG (NICODERM) PATCH TD ONE (17:15)
[2019-12-04 18:45] VITALS: BP 107/72
== END 2019-12-04 18:45 | disposition short-term general hospital (02) ==
LOC: EDUNIT# 12:27 → ER 12:28
DX: R45.851 Suicidal ideations (principal); F10.129 Alcohol abuse with intoxication, unspecified; F31.9 Bipolar disorder, unspecified; Z91.040 Latex allergy status; Z88.8 Allergy status to other drugs, medicaments and biological substances; Z77.22 Contact with and (suspected) exposure to environmental tobacco smoke (acute) (chronic); Z86.59 Personal history of other mental and behavioral disorders; Z82.49 Family history of ischemic heart disease and other diseases of the circulatory system; Y90.8 Blood alcohol level of 240 mg/100 ml or more
CPT/HCPCS: 36415; 80053; 80306; 80320; 80329; 81000; 82962; 84703; 85025; 90715; 93005; 93041

== ENCOUNTER 2020-03-20 21:51 | Emergency (ER) | payer SELFPAY ==
[~2020-03-20] VITALS: Ht 154.9 cm; Wt 72.6 kg
[2020-03-20] MEDS ORDERED: ALPRAZolam 0.25 MG (XANAX) TAB PO ONE (22:45)
--- NOTE | 2020-03-20 22:46 | ED Chest Pain ---
General Chief Complaint: Chest Pain Stated Complaint: CP Source: patient Exam Limitations: no limitations History of Present Illness Date Seen by Provider: Mar 20, 2020 Time Seen by Provider: 22:45 Initial Comments To ER by private vehicle with reports of chest pain that began 5 minutes before she got here worsened by deep breathing. No cough. No fevers. She believes she is just having a panic attack she states. She denies any alcohol use today, most recent was last night. Timing/Duration: 1-3 hours Severity/Quality: moderate Radiation: no radiation Activities at Onset: none ASA po REMELT OPERATOR: No NTG SL REMELT OPERATOR: No Associated Symptoms: denies symptoms Allergies and Home Medications Allergies Coded Allergies: escitalopram (Verified Allergy, Unknown, 05/19/18) latex (Verified Allergy, Unknown, 05/19/18) Home Medications Paliperidone Palmitate 156 Mg/1 Ml Syringe, 156 MG IM MONTHLY, (Reported) Patient Home Medication List Home Medication List Reviewed: Yes Review of Systems Review of Systems Constitutional: see HPI EENTM: No Symptoms Reported Respiratory: See HPI Cardiovascular: See HPI, Chest Pain Gastrointestinal: No Symptoms Reported Genitourinary: No Symptoms Reported Musculoskeletal: no symptoms reported Skin: no symptoms reported Psychiatric/Neurological: No Symptoms Reported Endocrine: No Symptoms Reported Hematologic/Lymphatic: No Symptoms Reported Past Hukkudu-Ghkosa-Vvpycv Hx Patient Social History Alcohol Beverage of Choice: Vodka Drug of Choice: THC Type Used: Cigarettes 2nd Hand Smoke Exposure: Yes Recent Foreign Travel: No Contact w/Someone Who Travel: No Recent Hopitalizations: No Immunizations Up To Date Tetanus Booster (TDap): Less than 5yrs PED Vaccines UTD: Yes Date of Influenza Vaccine: Jul 24, 2014 Seasonal Allergies Seasonal Allergies: No Past Medical History Surgeries: Yes (ectopic ) Abdominal Respiratory: Yes Asthma Cardiac: Yes Hypertension Neurological: No Reproductive Disorders: No Female Reproductive Disorders: Denies Sexually Transmitted Disease: Yes (CHLAMYDIA) HIV/AIDS: No Genitourinary: No Gastrointestinal: No Musculoskeletal: No Endocrine: No HEENT: No Cancer: No Psychosocial: Yes (Alcohol abuse) ADD/ADHD, Anxiety, Suicide Attempts, Personality Disorder, Depression Integumentary: Yes (SPOTS,SCARS ON ARMS) Blood Disorders: No Adverse Reaction/Blood Tranf: No (HAS HAD A BLOOD TRANSFUSION AFTER . ) Family Medical History Cardiovascular disease PATERNAL GRANDFATHER Psychosocial problem 19 MOTHER (BIPOLAR) No Pertinent Family Hx Physical Exam Vital Signs Vital Signs - First Documented 03/20/20 22:45 Temp 37.0 Pulse 104 Resp 12 B/P (MAP) 125/91 (102) O2 Delivery Room Air Capillary Refill : Height, Weight, BMI Height: 5'2.00" Weight: 125lbs. 3.0oz. 56.081466dd; 30.00 BMI Method:Stated General Appearance: No Apparent Distress, WD/WN HEENT: PERRL/EOMI, TMs Normal Neck: Full Range of Motion, Normal Inspection Respiratory: No Accessory Muscle Use, No Respiratory Distress Cardiovascular: Normal Peripheral Pulses, Tachycardia Gastrointestinal: Normal Bowel Sounds, Non Tender, Soft Extremity: Normal Capillary Refill Neurologic/Psychiatric: Alert, Oriented x3 Skin: Normal Color, Warm/Dry Progress/Results/Core Measures Results/Orders Lab Results Laboratory Tests Test 03/20/20 23:01 Range/Units My Orders Orders - TRACY RAZA APRN Cbc With Automated Diff (03/20/20 22:44) Ekg Tracing (03/20/20 22:44) Alprazolam Tablet (Xanax Tablet) (03/20/20 22:45) Chest 1 View, Ap/Pa Only (03/20/20 22:47) Medications Given in ED Current Medications Medications Dose Ordered Sig/Sachin Route Start Time Stop Time Status Last Admin Dose Admin Alprazolam 0.5 mg ONCE ONCE PO 03/20/20 22:45 03/20/20 22:46 DC 03/20/20 22:56 0.5 MG Vital Signs/I&O 03/20/20 03/20/20 22:45 22:48 Temp 37.0 Pulse 104 Resp 12 B/P (MAP) 125/91 (102) O2 Delivery Room Air Room Air Departure Impression Primary Impression: Acute anxiety Disposition: 01 HOME, SELF-CARE Condition: Stable Departure-Patient Inst. Decision time for Depature: 23:14 Referrals: [facility] (PCP/Family) Primary Care Physician Patient Instructions: Chest Pain (DC) Add. Discharge Instructions: 1. Return to Er for any concerns 2. Call your regular doctor tomorrow for an appointment to be seen. All discharge instructions reviewed with patient and/or family. Voiced understanding. TRACY RAZA APRN Mar 20, 2020 22:46
[2020-03-20 23:14] LABS: BASOPHILS % (AUTO) 0 % (0-10); EOSINOPHILS # (AUTO) 0.1 10^3/uL (0.0-0.3); EOSINOPHILS % (AUTO) 2 % (0-10); HEMATOCRIT 40 % (35-52); HEMOGLOBIN 13.4 G/DL (11.5-16.0); LYMPHOCYTES # (AUTO) 2.2 X 10^3 (1.0-4.0); LYMPHOCYTES % (AUTO) 27 % (12-44); MEAN CORPUSCULAR HEMOGLOBIN 26 PG (25-34); MEAN CORPUSCULAR HGB CONC 34 G/DL (32-36); MEAN CORPUSCULAR VOLUME 78 FL (80-99); MEAN PLATELET VOLUME 10.2 FL (7.4-10.4); MONOCYTES # (AUTO) 0.6 X 10^3 (0.0-1.0); MONOCYTES % (AUTO) 8 % (0-12); NEUTROPHILS # (AUTO) 5.1 X 10^3 (1.8-7.8); NEUTROPHILS % (AUTO) 63 % (42-75); PLATELET COUNT 338 10^3/uL (130-400); RED CELL DISTRIBUTION WIDTH 16.1 % (10.0-14.5); WHITE BLOOD COUNT 8.1 10^3/uL (4.3-11.0)
[2020-03-20 23:27] VITALS: BP 119/69
--- NOTE | 2020-03-21 05:25 | Diagnostic Imaging Report ---
INDICATION: Chest pain. COMPARISON: 06/01/2019 FINDINGS: Single frontal view of the chest demonstrates normal heart size and pulmonary vascularity. The lungs are well aerated and clear. No large pleural effusion or pneumothorax is seen. The visualized osseous structures show no acute abnormalities. IMPRESSION: 1. No acute cardiopulmonary process. Dictated by: Dictated on workstation # [id number]
== END 2020-03-20 23:27 | disposition home or self-care (01) ==
LOC: EDUNIT# 21:51 → ER 21:53
DX: F41.9 Anxiety disorder, unspecified (principal); Z91.040 Latex allergy status; Z88.8 Allergy status to other drugs, medicaments and biological substances; Z77.22 Contact with and (suspected) exposure to environmental tobacco smoke (acute) (chronic)
CPT/HCPCS: 36415; 71045; 85025; 93005

== ENCOUNTER 2020-04-12 19:34 | Emergency (ER) | payer SELFPAY ==
[~2020-04-12] VITALS: Ht 165 cm; Wt 70.0 kg
[2020-04-12 20:35] LABS: BASOPHILS % (AUTO) 0 % (0-10); EOSINOPHILS # (AUTO) 0.1 10^3/uL (0.0-0.3); EOSINOPHILS % (AUTO) 1 % (0-10); HEMATOCRIT 39 % (35-52); HEMOGLOBIN 13.3 G/DL (11.5-16.0); LYMPHOCYTES # (AUTO) 2.6 X 10^3 (1.0-4.0); LYMPHOCYTES % (AUTO) 25 % (12-44); MEAN CORPUSCULAR HEMOGLOBIN 27 PG (25-34); MEAN CORPUSCULAR HGB CONC 34 G/DL (32-36); MEAN CORPUSCULAR VOLUME 79 FL (80-99); MEAN PLATELET VOLUME 10.5 FL (7.4-10.4); MONOCYTES # (AUTO) 0.8 X 10^3 (0.0-1.0); MONOCYTES % (AUTO) 8 % (0-12); NEUTROPHILS # (AUTO) 6.6 X 10^3 (1.8-7.8); NEUTROPHILS % (AUTO) 65 % (42-75); PLATELET COUNT 391 10^3/uL (130-400); RED CELL DISTRIBUTION WIDTH 16.1 % (10.0-14.5); WHITE BLOOD COUNT 10.1 10^3/uL (4.3-11.0)
--- NOTE | 2020-04-12 20:40 | Diagnostic Imaging Report ---
EXAMINATION: Chest 1 view. HISTORY: Chest pain. COMPARISON: 03/20/2020. FINDINGS: The lungs are clear without edema or pneumonia. No pleural effusion or pneumothorax. Heart size is normal. IMPRESSION: Clear lungs. Dictated by: Dictated on workstation # [id number]
[2020-04-12 20:51] LABS: ALANINE AMINOTRANSFERASE 14 U/L (0-55); ALBUMIN 4.6 GM/DL (3.2-4.5); ALKALINE PHOSPHATASE 51 U/L (40-136); BILIRUBIN,TOTAL 0.2 MG/DL (0.1-1.0); BUN/CREATININE RATIO 15; CALCIUM 9.1 MG/DL (8.5-10.1); CARBON DIOXIDE 18 MMOL/L (21-32); CHLORIDE 108 MMOL/L (98-107); CREATININE SERUM 0.87 MG/DL (0.60-1.30); GFR ESTIMATED > 60; GLUCOSE 96 MG/DL (70-105); MAGNESIUM 1.8 MG/DL (1.6-2.4); POTASSIUM 3.3 MMOL/L (3.6-5.0); SODIUM 141 MMOL/L (135-145); TOTAL PROTEIN 7.9 GM/DL (6.4-8.2)
[2020-04-12] MEDS ORDERED: hydrOXYzine (VISTARIL/ATARAX) 25 MG capsule/tablet PO ONE (21:15)
[2020-04-12] MEDS ORDERED: HYDR25CA PO (21:22)
--- NOTE | 2020-04-12 21:22 | ED Psychosocial ---
General Chief Complaint: Psych/Social Disorder Stated Complaint: CP Nursing Triage Note: THE PT IS AMBULATORY TO THE ROOM WITHOUT DIFFICULTY. NO DISTRESS IS SEEN ON ARRIVAL. LOC IS NORMAL FOR THE PT. THE PT C/O ANXIETY TODAY. Source: patient Exam Limitations: no limitations History of Present Illness Date Seen by Provider: Apr 12, 2020 Time Seen by Provider: 19:36 Allergies and Home Medications Allergies Coded Allergies: escitalopram (Verified Allergy, Unknown, 05/19/18) latex (Verified Allergy, Unknown, 05/19/18) Home Medications Paliperidone Palmitate 156 Mg/1 Ml Syringe, 156 MG IM MONTHLY, (Reported) Past Exquswa-Vxwpyn-Geedux Hx Patient Social History Alcohol Beverage of Choice: Vodka Drug of Choice: THC Type Used: Cigarettes 2nd Hand Smoke Exposure: Yes Recent Foreign Travel: No Contact w/Someone Who Travel: No Recent Infectious Disease Expo: No Recent Hopitalizations: No Physical Abuse: No Sexual Abuse: No Mistreated: No Fear: No Immunizations Up To Date Tetanus Booster (TDap): Less than 5yrs PED Vaccines UTD: Yes Date of Influenza Vaccine: Jul 24, 2014 Seasonal Allergies Seasonal Allergies: No Past Medical History Surgeries: Yes (ectopic ) Abdominal Respiratory: Yes Asthma Cardiac: Yes Hypertension Neurological: No Reproductive Disorders: No Female Reproductive Disorders: Denies Sexually Transmitted Disease: Yes (CHLAMYDIA) HIV/AIDS: No Genitourinary: No Gastrointestinal: No Musculoskeletal: No Endocrine: No HEENT: No Cancer: No Psychosocial: Yes (Alcohol abuse) ADD/ADHD, Anxiety, Suicide Attempts, Personality Disorder, Depression Integumentary: Yes (SPOTS,SCARS ON ARMS) Blood Disorders: No Adverse Reaction/Blood Tranf: No (HAS HAD A BLOOD TRANSFUSION AFTER . ) Family Medical History Cardiovascular disease PATERNAL GRANDFATHER Psychosocial problem 19 MOTHER (BIPOLAR) No Pertinent Family Hx Physical Exam Vital Signs - First Documented 04/12/20 19:54 Temp 37.1 Pulse 113 Resp 16 B/P (MAP) 118/85 (96) Capillary Refill : Less Than 3 Seconds Height, Weight, BMI Height: 5'2.00" Weight: 125lbs. 3.0oz. 56.526741gs; 25.00 BMI Method:Stated Progress/Results/Core Measures Results/Orders Lab Results Laboratory Tests Test 04/12/20 19:45 Range/Units White Blood Count 10.1 4.3-11.0 10^3/uL Red Blood Count 4.95 4.35-5.85 10^6/uL Hemoglobin 13.3 11.5-16.0 G/DL Hematocrit 39 35-52 % Mean Corpuscular Volume 79 L 80-99 FL Mean Corpuscular Hemoglobin 27 25-34 PG Mean Corpuscular Hemoglobin Concent 34 32-36 G/DL Red Cell Distribution Width 16.1 H 10.0-14.5 % Platelet Count 391 130-400 10^3/uL Mean Platelet Volume 10.5 H 7.4-10.4 FL Neutrophils (%) (Auto) 65 42-75 % Lymphocytes (%) (Auto) 25 12-44 % Monocytes (%) (Auto) 8 0-12 % Eosinophils (%) (Auto) 1 0-10 % Basophils (%) (Auto) 0 0-10 % Neutrophils # (Auto) 6.6 1.8-7.8 X 10^3 Lymphocytes # (Auto) 2.6 1.0-4.0 X 10^3 Monocytes # (Auto) 0.8 0.0-1.0 X 10^3 Eosinophils # (Auto) 0.1 0.0-0.3 10^3/uL Basophils # (Auto) 0.0 0.0-0.1 10^3/uL D-Dimer 0.31 0.00-0.49 UG/ML Sodium Level 141 135-145 MMOL/L Potassium Level 3.3 L 3.6-5.0 MMOL/L Chloride Level 108 H 98-107 MMOL/L Carbon Dioxide Level 18 L 21-32 MMOL/L Anion Gap 15 H 5-14 MMOL/L Blood Urea Nitrogen 13 7-18 MG/DL Creatinine 0.87 0.60-1.30 MG/DL Estimat Glomerular Filtration Rate > 60 BUN/Creatinine Ratio 15 Glucose Level 96 70-105 MG/DL Calcium Level 9.1 8.5-10.1 MG/DL Corrected Calcium 8.5-10.1 MG/DL Magnesium Level 1.8 1.6-2.4 MG/DL Total Bilirubin 0.2 0.1-1.0 MG/DL Aspartate Amino Transf (AST/SGOT) 20 5-34 U/L Alanine Aminotransferase (ALT/SGPT) 14 0-55 U/L Alkaline Phosphatase 51 40-136 U/L Myoglobin 25.0 10.0-92.0 NG/ML Troponin I < 0.028 <0.028 NG/ML Total Protein 7.9 6.4-8.2 GM/DL Albumin 4.6 H 3.2-4.5 GM/DL My Orders Orders - EDWIN CID Cbc With Automated Diff (04/12/20 19:35) Magnesium (04/12/20 19:35) Chest 1 View, Ap/Pa Only (04/12/20 19:35) Ekg Tracing (04/12/20 19:35) Comprehensive Metabolic Panel (04/12/20 19:35) Myoglobin Serum (04/12/20 19:35) O2 (04/12/20 19:35) Monitor-Rhythm Ecg Trace Only (04/12/20 19:35) Ed Iv/Invasive Line Start (04/12/20 19:35) Fibrin Degradation Products (04/12/20 19:35) Troponin I (04/12/20 19:35) Hydroxyzine Cap/Tab (Vistaril) (04/12/20 21:15) Vital Signs/I&O 04/12/20 19:54 Temp 37.1 Pulse 113 Resp 16 B/P (MAP) 118/85 (96) Blood Pressure Mean: 96 Departure Impression Primary Impression: Anxiety Disposition: 01 HOME, SELF-CARE Condition: Stable/Unchanged Departure-Patient Inst. Decision time for Depature: 21:21 Referrals: [facility] (PCP/Family) Primary Care Physician Patient Instructions: Panic Disorder (DC) Add. Discharge Instructions: Take medications as needed. Follow-up with Horace Coffey at [facility] within 1 week for recheck. Return back to the emergency room room for worsening symptoms or concerns as needed. All discharge instructions reviewed with patient and/or family. Voiced understanding. Scripts Hydroxyzine Pamoate (Vistaril) 25 Mg Capsule 25 MG PO Q4H PRN for ANXIETY, #20 CAP Prov: EDWIN CID 04/12/20 EDWIN CID Apr 12, 2020 21:22
--- NOTE | 2020-04-12 21:35 | NUR ---
IN ROOM TO DISCUSS PATINET DISCHARGE INSTRUCTIONS. THIS RN TELLS PATIENT [facility] PATIENT INFORMS THIS RN THAT SHE CANT TAKE THAT MEDICTION, "IS THAT WHAT HE JUST GAVE ME?" THIS RN TELLS PATIENT INDEED SHE WAS JUST ADMINISTERED HYDROXYZINE VISTERIL. PATIENT CONTINUES BY SAYING IN THE PAST SHE HAS HAD AN ADVERSE EFFECT FROM TAKING THE MEDICATION WHERE SHE SLEEPS DEEPLY AND WAKES UP GASPING FOR AIR. PATIENT IS ASKED IF SHE REPORTED IT AN ALLERGY TO WHICH SHE STATES NO, IT JUST AN ADVERSE REACTION. THIS RN THEN ASSURES THE PATIENT HYDROXYIZINE WILL BE ADDED TO HER ALLERGY LIST AN ADVERSE REACTION. EDWIN CAO INFORMED AND IN ROOM TO SPEAK TO THE PATIENT. EDWIN INSTRUCTS THE PATIENT THAT WE WOULD LIKE TO MONITOR HER FOR ABOUT 30 MINUTES TO AN HOUR TO MAKE SURE SHE IS DOING OKAY BEFORE SHE LEAVES. EDWIN LEAVES ROOM, THIS RN REMAINS TO CONTINUE TO DISCUSS PLAN OF CARE FOR THE REMAINDER OF PATIENT MONITORING. PATIENT THEN ASKS IF SHE HAS TO STAY FOR MONITORING, "ITS GETTING LATE AND I NEED TO CALL MY RIDE AND THEY WILL NOT BE ABLE TO COME AND GET ME LATER BECAUSE THEY WILL BE GOING TO BED SOON". THIS RN INSTRUCTS WHILE IT WOULD BE BETTER FOR HER TO STAY AND BE MONITORED, SHE CAN CHOOSE TO LEAVE AGAINST MEDICAL ADVICE IF SHE DOES NOT WANT TO STAY. PATIENT STATES SHE WOULD RATHER LEAVE AMA. EDWIN CAO INFORMED. [id number] AMA PAPERWORK DISCUSSED WITH AND SIGNED BY PATIENT
[2020-04-12 21:50] VITALS: BP 118/85
== END 2020-04-12 21:50 | disposition home or self-care (01) ==
LOC: EDUNIT# 19:34 → ER 19:36
DX: F41.9 Anxiety disorder, unspecified (principal); F90.9 Attention-deficit hyperactivity disorder, unspecified type; F32.9 Major depressive disorder, single episode, unspecified; F60.9 Personality disorder, unspecified; Z88.8 Allergy status to other drugs, medicaments and biological substances; Z91.040 Latex allergy status
CPT/HCPCS: 36415; 71045; 80053; 83735; 83874; 84484; 85025; 85379; 93005; 93041

== ENCOUNTER 2020-04-16 01:40 | Emergency (ER) | payer SELFPAY ==
[~2020-04-16] VITALS: Ht 175.5 cm; Wt 77.1 kg
--- NOTE | 2020-04-16 02:16 | NUR ---
Pt requested for blanket, so this RN got her a blanket. After covering the patient up with the blanket, she started to complain of jaw pain and a weird taste in her mouth.
[2020-04-16 03:00] VITALS: BP 130/90
[2020-04-16 03:41] LABS: BASOPHILS % (AUTO) 0 % (0-10); EOSINOPHILS # (AUTO) 0.1 10^3/uL (0.0-0.3); EOSINOPHILS % (AUTO) 1 % (0-10); HEMATOCRIT 37 % (35-52); HEMOGLOBIN 12.5 G/DL (11.5-16.0); LYMPHOCYTES # (AUTO) 1.8 X 10^3 (1.0-4.0); LYMPHOCYTES % (AUTO) 23 % (12-44); MEAN CORPUSCULAR HEMOGLOBIN 27 PG (25-34); MEAN CORPUSCULAR HGB CONC 34 G/DL (32-36); MEAN CORPUSCULAR VOLUME 79 FL (80-99); MEAN PLATELET VOLUME 10.4 FL (7.4-10.4); MONOCYTES # (AUTO) 0.5 X 10^3 (0.0-1.0); MONOCYTES % (AUTO) 7 % (0-12); NEUTROPHILS # (AUTO) 5.5 X 10^3 (1.8-7.8); NEUTROPHILS % (AUTO) 70 % (42-75); PLATELET COUNT 355 10^3/uL (130-400); RED CELL DISTRIBUTION WIDTH 16.1 % (10.0-14.5); WHITE BLOOD COUNT 7.9 10^3/uL (4.3-11.0)
[2020-04-16 03:42] LABS: BILIRUBIN,URINE NEGATIVE (NEGATIVE); CLARITY,URINE CLOUDY; COLOR,URINE YELLOW; GLUCOSE, URINE (UA) NEGATIVE (NEGATIVE); KETONES,URINE 1+ (NEGATIVE); LEUKOCYTE ESTERASE ,URINE NEGATIVE (NEGATIVE); NITRITE,URINE NEGATIVE (NEGATIVE); PH,URINE 6.5 (5-9); PROTEIN,URINE NEGATIVE (NEGATIVE)
[2020-04-16 03:50] LABS: BACTERIA,URINE TRACE /HPF
[2020-04-16 03:54] LABS: AMPHETAMINE SCREEN, URINE POSITIVE (NEGATIVE); BARBITURATE SCREEN URINE NEGATIVE (NEGATIVE); BENZODIAZEPINES SCREEN URINE POSITIVE (NEGATIVE); CANNABINOID SCREEN, URINE NEGATIVE (NEGATIVE); COCAINE SCREEN URINE NEGATIVE (NEGATIVE); METHADONE STAT NEGATIVE (NEGATIVE); METHAMPHETAMINE SCREEN URINE S POSITIVE (NEGATIVE); OPIATE SCREEN URINE NEGATIVE (NEGATIVE); OXYCODONE STAT NEGATIVE (NEGATIVE); PROPOXYPHENE STAT NEGATIVE (NEGATIVE); TRICYCLIC ANTIDEPRESSANTS SCRE NEGATIVE (NEGATIVE)
[2020-04-16 03:58] LABS: INR 0.9 (0.8-1.4); PROTHROMBIN TIME PATIENT 12.6 SEC (12.2-14.7)
[2020-04-16 03:59] LABS: ALBUMIN 4.3 GM/DL (3.2-4.5); CHLORIDE 103 MMOL/L (98-107); POTASSIUM 3.2 MMOL/L (3.6-5.0); SODIUM 139 MMOL/L (135-145)
[2020-04-16 04:01] LABS: CALCIUM 9.1 MG/DL (8.5-10.1)
[2020-04-16 04:02] LABS: GLUCOSE 85 MG/DL (70-105); TOTAL PROTEIN 7.4 GM/DL (6.4-8.2)
[2020-04-16 04:03] LABS: CARBON DIOXIDE 21 MMOL/L (21-32)
[2020-04-16 04:04] LABS: BILIRUBIN,TOTAL 0.4 MG/DL (0.1-1.0)
[2020-04-16 04:05] LABS: ALKALINE PHOSPHATASE 53 U/L (40-136)
[2020-04-16 04:06] LABS: CREATININE SERUM 0.79 MG/DL (0.60-1.30); GFR ESTIMATED > 60
[2020-04-16 04:07] LABS: BUN/CREATININE RATIO 14
[2020-04-16 04:08] LABS: ALANINE AMINOTRANSFERASE 19 U/L (0-55); MAGNESIUM 1.9 MG/DL (1.6-2.4)
--- NOTE | 2020-04-22 17:38 | ED General ---
General Chief Complaint: Psych/Social Disorder Stated Complaint: CP,SOB Nursing Triage Note: Pt arrived by private vehcile with chief complaint of chest pain and left arm pain. Pt stated that she was lying down when this started. 30 min prior to arrival, she took ativan and it has not worked. Pt stated it might be an anxiety attack. She stated she was having heat waves and could not catch her breath. Pt was alert, oriented x 4 and ambulatory at arrival. Pt stated pain was a 5 and pressure. /pt was tested for COVID-19, but the results have not come back yet. Nursing Sepsis Screen: No Definite Risk Source of Information: Patient History of Present Illness Date Seen by Provider: Apr 16, 2020 Time Seen by Provider: 02:05 Initial Comments PT ARRIVES VIA POV C/O CHEST PAIN AND SHORTNESS OF BREATH--BEGAN 1 HOUR AGO WHILE LAYING IN BED C/O ANXIETY MULTIPLE VISITS FOR SAME, AND MANY WITH ALCOHOL INTOXICATION SKIPPACK HEAD OF MOBILE IS HERE, IS VERY FAMILIAR WITH PT HE STATES THAT PT'S BOYFRIEND CALLED POLICE TO DO A WELL BEING CHECK ON PT, AND TO SEE IF SHE WAS HERE, THIS IS A FREQUENT BEHAVIOR PATTERN FOR PT, PT HAS DONE THIS A MULTITUDE OF TIMES OFFICER STATES THE BOYFRIEND HAD STATED THAT THEY GOT INTO AN ARGUMENT AND HE DID NOT KNOW WHERE SHE WAS FOR THE LAST 4 HOURS, AND SHE HAD CALLED HIM EARLIER THIS EVENING AND SAID TO HIM "THEY WON'T LET ME LEAVE" Allergies and Home Medications Allergies Coded Allergies: escitalopram (Verified Allergy, Unknown, 04/12/20) latex (Verified Allergy, Unknown, 04/12/20) hydroxyzine (Verified Adverse Reaction, Unknown, Shortness of Breath, 04/12/20) "makes me wake up gasping for air when i sleep" Home Medications Paliperidone Palmitate 156 Mg/1 Ml Syringe, 156 MG IM MONTHLY, (Reported) Patient Home Medication List Home Medication List Reviewed: Yes Review of Systems Review of Systems Constitutional: no symptoms reported Respiratory: see HPI Cardiovascular: see HPI Psychiatric/Neurological: See HPI Past Rracfem-Dmezzj-Opetbi Hx Patient Social History Alcohol Use: Regular Use Number of Drinks Today: FF Alcohol Beverage of Choice: Vodka Recreational Drug Use: Yes (THC, METH, BENZO'S) Drug of Choice: THC, METH, BENZO'S Smoking Status: Current Everyday Smoker Type Used: Cigarettes 2nd Hand Smoke Exposure: Yes Recent Foreign Travel: No Contact w/Someone Who Travel: No Recent Infectious Disease Expo: No Recent Hopitalizations: No Physical Abuse: No Sexual Abuse: No Mistreated: No Fear: No Immunizations Up To Date Tetanus Booster (TDap): Less than 5yrs PED Vaccines UTD: Yes Date of Influenza Vaccine: Jul 24, 2014 Seasonal Allergies Seasonal Allergies: No Past Medical History Surgeries: Yes (ectopic ) Abdominal Respiratory: Yes Asthma Cardiac: Yes Hypertension Neurological: No Reproductive Disorders: No Female Reproductive Disorders: Denies Sexually Transmitted Disease: Yes (CHLAMYDIA) HIV/AIDS: No Genitourinary: No Gastrointestinal: No Musculoskeletal: No Endocrine: No HEENT: No Cancer: No Psychosocial: Yes (Alcohol abuse) ADD/ADHD, Anxiety, Suicide Attempts, Personality Disorder, Depression Integumentary: Yes (SPOTS,SCARS ON ARMS) Blood Disorders: No Adverse Reaction/Blood Tranf: No (HAS HAD A BLOOD TRANSFUSION AFTER . ) Family Medical History Cardiovascular disease PATERNAL GRANDFATHER Psychosocial problem 19 MOTHER (BIPOLAR) No Pertinent Family Hx Physical Exam Vital Signs Vital Signs - First Documented 04/16/20 01:53 Temp 36.6 Pulse 109 Resp 16 B/P (MAP) 130/94 (106) Pulse Ox 100 O2 Delivery Room Air Capillary Refill : Less Than 3 Seconds Height, Weight, BMI Height: 5'2.00" Weight: 125lbs. 3.0oz. 56.674979ws; 25.00 BMI Method:Stated General Appearance: No Apparent Distress, Anxious, Other (CONSTANT MOVEMENTS,) Respiratory: Normal Breath Sounds, No Accessory Muscle Use, No Respiratory Distress Cardiovascular: Tachycardia Extremity: Normal Inspection Neurologic/Psychiatric: Alert, Oriented x3, No Motor/Sensory Deficits, Other (ANXIOUS) Progress/Results/Core Measures Suspected Sepsis Recent Fever Within 48 Hours: No Infection Criteria Present: None New/Unexplained Altered Menta: No Sepsis Screen: No Definite Risk SIRS Temperature: Pulse: 105 Respiratory Rate: 18 Blood Pressure 130 /90 Mean: 106 Results/Orders Vital Signs/I&O Capillary Refill : Less Than 3 Seconds Blood Pressure Mean: 106 Progress Note : Progress Note PT SEEN IN COVID UNIT, PER CURRENT HOSPITAL GUIDELINES PPE WORN AT ALL TIMES PT REFUSED COVID TESTING 0258-- PT NOW STATES "I FEEL FINE" " I JUST WANT TO GO HOME" " I JUST FEEL UNCOMFORTABLE HERE--I DON'T KNOW WHY" "I DON'T WANT TO STAY" TEST RESULTS PENDING PT SIGNED OUT AMA. ECG Initial ECG Impression Date: Apr 16, 2020 Initial ECG Impression Time: 01:43 Initial ECG Rate: 117 Initial ECG Rhythm: S.Tach Departure Impression Primary Impression: Left against medical advice Additional Impressions: Illicit drug use Methamphetamine use Disposition: 07 AGAINST MEDICAL ADVICE Condition: Against Medical Advice Departure-Patient Inst. Referrals: [facility] (PCP) Primary Care Physician YOLY VALENCIA DO Apr 22, 2020 17:38
== END 2020-04-16 03:02 | disposition left against medical advice (07) ==
LOC: EDUNIT# 01:40 → ER 01:42
DX: F19.90 Other psychoactive substance use, unspecified, uncomplicated (principal); F15.90 Other stimulant use, unspecified, uncomplicated; F12.90 Cannabis use, unspecified, uncomplicated; F13.90 Sedative, hypnotic, or anxiolytic use, unspecified, uncomplicated; F17.210 Nicotine dependence, cigarettes, uncomplicated; F41.9 Anxiety disorder, unspecified; F32.9 Major depressive disorder, single episode, unspecified; Z88.8 Allergy status to other drugs, medicaments and biological substances; Z91.040 Latex allergy status; Z82.49 Family history of ischemic heart disease and other diseases of the circulatory system
CPT/HCPCS: 80053; 80306; 81000; 83735; 83880; 84484; 85025; 85610; 85730; 93005; 99283; G0480; 36415; 80320

== ENCOUNTER 2020-04-16 05:00 | Emergency (ER) | payer SELFPAY | END 2020-04-16 05:17 | disposition left against medical advice (07) | LOC: EDUNIT# 05:00 → ER 05:02 | DX: R07.9 Chest pain, unspecified (principal) ==

== ENCOUNTER 2020-05-26 02:54 | Emergency (ER) | payer SELFPAY | END 2020-05-26 03:08 | disposition left against medical advice (07) | LOC: EDUNIT# 02:54 → ER 03:02 | DX: F41.9 Anxiety disorder, unspecified (principal); F91.8 Other conduct disorders ==